=== PATIENT | female | born 1990 | race African-American/Black ===

== ENCOUNTER 2019-05-16 14:10 | Emergency (ER) | payer SELFPAY ==
--- NOTE | 2019-05-16 14:31 | EDM.PDOC ---
ED HPI GENERAL MEDICAL PROBLEM - General Chief Complaint: ENT Problem Stated Complaint: FEVER Time Seen by Provider: 05/16/19 14:30 Source of Information: Reports: Patient, Family History Limitations: Reports: No Limitations - History of Present Illness INITIAL COMMENTS - FREE TEXT/NARRATIVE: HISTORY AND PHYSICAL: History of present illness: Patient is a 29-year-old female non-kinyarwanda speaking presents to the ED with family for complaints of fever. Family states she has had a sore throat, subjective fevers, cough x 1 week. She is complaining of body aches. Denies vomiting, diarrhea, abdominal pain. Denies chest pain, shortness of breath, recent travel, calf pain. Patient is poor historian, uncertain of medical history. Review of systems: As per history of present illness and below otherwise all systems reviewed and negative. Past medical history: As per history of present illness and as reviewed below otherwise noncontributory. Surgical history: As per history of present illness and as reviewed below otherwise noncontributory. Social history: No reported history of drug or alcohol abuse. Family history: As per history of present illness and as reviewed below otherwise noncontributory. Physical exam: General: Patient sitting comfortably in no acute distress and nontoxic appearing HEENT: Tonsils are 3+ and erythematous with exudate. Uvula is midline without devation. Atraumatic, normocephalic, pupils reactive, negative for conjunctival pallor or scleral icterus, mucous membranes moist, throat clear, neck supple, nontender, trachea midline. No meningeal signs. Lungs: Clear to auscultation, breath sounds equal bilaterally, chest nontender. Heart: S1S2, regular, negative for clicks, rubs, or overt murmur. Abdomen: Soft, nondistended, nontender. Negative for masses or hepatosplenomegaly. Negative for costovertebral tenderness. No rigidity, rebound , guarding. Pelvis: Stable nontender. Genitourinary: Deferred. Rectal: Deferred. Extremities: Atraumatic, negative for cords or calf pain. Neurovascular unremarkable. Neuro: Awake, alert, oriented. Cranial nerves II through XII unremarkable. Cerebellum unremarkable. Motor and sensory unremarkable throughout. Exam nonfocal. Notes: Diagnostics: Rapid strep, influenza, CBC, CMP, CXR, EKG Therapeutics: 125mg Soludrol 1L NS IV 1g Rocephin IV Prescriptions: Penicillin Medrol dosepak Impression: Strep tonsillitis Definitive disposition and diagnosis as appropriate pending reevaluation and review of above. Generalized Pain Score (Numeric/FACES): 10 - Related Data Allergies Allergy/AdvReac Type Severity Reaction Status Date / Time No Known Allergies Allergy Verified 05/16/19 14:21 Home Meds: Home Meds Penicillin V Potassium 500 mg PO TID 10 Days #30 tab 05/16/19 [Rx] methylPREDNISolone [Medrol] 4 mg PO ASDIRECTED #1 tab.ds.pk 05/16/19 [Rx] Past Medical History - Past Health History Medical/Surgical History: Denies Medical/Surgical History - Infectious Disease History Infectious Disease History: Reports: None Social & Family History - Family History Family Medical History: Noncontributory - Tobacco Use Smoking Status *Q: Never Smoker - Caffeine Use Caffeine Use: Reports: Coffee - Recreational Drug Use Recreational Drug Use: No ED ROS ENT - Review of Systems Review Of Systems: Comprehensive ROS is negative, except as noted in HPI. ED EXAM, ENT - Physical Exam Exam: See Below (see dictation) Course - Vital Signs Last Recorded V/S: Last Vital Signs Temp 98.8 F 05/16/19 16:01 Pulse 98 05/16/19 17:15 Resp 20 05/16/19 17:15 BP 176/89 H 05/16/19 16:01 Pulse Ox 98 05/16/19 17:15 - Orders/Labs/Meds Orders: Active Orders 24 hr Category Date Time Status EKG Documentation Completion [RC] STAT Care 05/16/19 14:40 Active RT Aerosol Therapy [RC] ASDIRECTED Care 05/16/19 14:40 Active Sodium Chloride 0.9% [Saline Flush] Med 05/16/19 16:01 Active 10 ml FLUSH ASDIRECTED PRN Sodium Chloride 0.9% [Saline Flush] Med 05/16/19 16:01 Active 2.5 ml FLUSH ASDIRECTED PRN Saline Lock Insert [OM.PC] Stat Oth 05/16/19 16:01 Ordered Medication Orders Sodium Chloride (Saline Flush) 10 ml FLUSH ASDIRECTED PRN PRN Reason: Keep Vein Open Sodium Chloride (Saline Flush) 2.5 ml FLUSH ASDIRECTED PRN PRN Reason: Keep Vein Open Labs: Laboratory Tests 05/16/19 05/16/19 05/16/19 Range/Units 14:49 16:20 16:20 WBC 11.38 H (4.0-11.0) K/uL RBC 4.91 (4.30-5.90) M/uL Hgb 12.6 (12.0-16.0) g/dL Hct 38.7 (36.0-46.0) % MCV 78.8 L (80.0-98.0) fL MCH 25.7 L (27.0-32.0) pg MCHC 32.6 (31.0-37.0) g/dL RDW Std Deviation 39.7 (28.0-62.0) fl RDW Coeff of Zoila 14 (11.0-15.0) % Plt Count 136 L (150-400) K/uL MPV 12.30 H (7.40-12.00) fL Neut % (Auto) 85.3 H (48.0-80.0) % Lymph % (Auto) 7.6 L (16.0-40.0) % [place] % (Auto) 6.9 (0.0-15.0) % Eos % (Auto) 0.1 (0.0-7.0) % Baso % (Auto) 0.1 (0.0-1.5) % Neut # (Auto) 9.7 H (1.4-5.7) K/uL Lymph # (Auto) 0.9 (0.6-2.4) K/uL [place] # (Auto) 0.8 (0.0-0.8) K/uL Eos # (Auto) 0.0 (0.0-0.7) K/uL Baso # (Auto) 0.0 (0.0-0.1) K/uL Nucleated RBC % 0.0 /100WBC Nucleated RBCs # 0 K/uL Sodium 137 (136-145) mmol/L Potassium 3.8 (3.5-5.1) mmol/L Chloride 101 (98-107) mmol/L Carbon Dioxide 24.8 (21.0-32.0) mmol/L BUN 12 (7.0-18.0) mg/dL Creatinine 0.9 (0.6-1.0) mg/dL Est Cr Clr Drug Dosing 91.36 mL/min Estimated GFR (MDRD) > 60.0 ml/min Glucose 128 H (74-106) mg/dL Calcium 8.7 (8.5-10.1) mg/dL Total Bilirubin 0.3 (0.2-1.0) mg/dL AST 27 (15-37) IU/L ALT 37 (14-63) IU/L Alkaline Phosphatase 98 (46-116) U/L Total Protein 8.7 H (6.4-8.2) g/dL Albumin 3.9 (3.4-5.0) g/dL Globulin 4.8 H (2.6-4.0) g/dL Albumin/Globulin Ratio 0.8 L (0.9-1.6) Urine HCG, Qual NEGATIVE (NEGATIVE) Meds: Medications Generic Name Dose Route Start Last Admin Trade Name Freq PRN Reason Stop Dose Admin Sodium Chloride 10 ml 05/16/19 16:01 Saline Flush FLUSH ASDIRECTED PRN Keep Vein Open Sodium Chloride 2.5 ml 05/16/19 16:01 Saline Flush FLUSH ASDIRECTED PRN Keep Vein Open Discontinued Medications Generic Name Dose Route Start Last Admin Trade Name Freq PRN Reason Stop Dose Admin Acetaminophen 1,000 mg 05/16/19 15:36 05/16/19 15:45 Tylenol Extra Strength PO 05/16/19 15:37 1,000 mg ONETIME ONE Administration Albuterol/Ipratropium 3 ml 05/16/19 14:40 05/16/19 14:51 Duoneb 3.0-0.5 Mg/3 Ml NEB 05/16/19 14:41 3 ml ONETIME ONE Administration Ceftriaxone Sodium/Dextrose 1 50 mls @ 100 mls/hr 05/16/19 16:01 05/16/19 16: 31 gm/ Premix IV 05/16/19 16:30 100 mls/hr ONETIME ONE Administration Sodium Chloride 1,000 mls @ 999 mls/hr 05/16/19 16:01 05/16/19 16:31 Normal Saline IV 05/16/19 17:01 999 mls/hr STAT ONE Administration Methylprednisolone Sodium Succinate 125 mg 05/16/19 14:40 05/16/19 15:21 Solu-Medrol IM 05/16/19 14:41 125 mg ONETIME ONE Administration Departure - Departure Time of Disposition: 17:23 Disposition: Home, Self-Care 01 Condition: Good Clinical Impression: Strep pharyngitis - Discharge Information Prescriptions: methylPREDNISolone [Medrol] 4 mg PO ASDIRECTED #1 tab.ds.pk Penicillin V Potassium 500 mg PO TID 10 Days #30 tab Referrals: PCP,Unknown [Primary Care Provider] - Forms: ED Department Discharge Additional Instructions: The following information is given to patients seen in the emergency department who are being discharged to home. This information is to outline your options for follow-up care. We provide all patients seen in our emergency department with a follow-up referral. The need for follow-up, as well as the timing and circumstances, are variable depending upon the specifics of your emergency department visit. If you don't have a primary care physician on staff, we will provide you with a referral. We always advise you to contact your personal physician following an emergency department visit to inform them of the circumstance of the visit and for follow-up with them and/or the need for any referrals to a consulting specialist. The emergency department will also refer you to a specialist when appropriate. This referral assures that you have the opportunity for follow-up care with a specialist. All of these measure are taken in an effort to provide you with optimal care, which includes your follow-up. Under all circumstances we always encourage you to contact your private physician who remains a resource for coordinating your care. When calling for follow-up care, please make the office aware that this follow-up is from your recent emergency room visit. If for any reason you are refused follow-up, please contact the [facility] Emergency Department at and asked to speak to the emergency department charge nurse. [facility] [address] [place] [id number] [id number] Take medications as instructed Follow up with primary care provider Return to ED as needed as discussed Sepsis Event Note - Evaluation Sepsis Screening Result: No Definite Risk - Focused Exam Vital Signs: Vital Signs Temp Temp Pulse Resp BP Pulse Ox 05/16/19 17:15 98 20 98 05/16/19 16:01 98.8 F 115 H 24 H 176/89 H 99 05/16/19 15:45 99 F 05/16/19 15:40 99 F 116 H 24 H 176/83 H 100 05/16/19 14:22 98.8 F 116 H 24 H 181/99 H 98 Date Exam was Performed: 05/16/19 Time Exam was Performed: 17:23 - My Orders Last 24 Hours: My Active Orders 05/16/19 14:40 EKG Documentation Completion [RC] STAT RT Aerosol Therapy [RC] ASDIRECTED 05/16/19 16:01 Sodium Chloride 0.9% [Saline Flush] 10 ml FLUSH ASDIRECTED PRN Sodium Chloride 0.9% [Saline Flush] 2.5 ml FLUSH ASDIRECTED PRN Saline Lock Insert [OM.PC] Stat - Assessment/Plan Last 24 Hours: My Active Orders 05/16/19 14:40 EKG Documentation Completion [RC] STAT RT Aerosol Therapy [RC] ASDIRECTED 05/16/19 16:01 Sodium Chloride 0.9% [Saline Flush] 10 ml FLUSH ASDIRECTED PRN Sodium Chloride 0.9% [Saline Flush] 2.5 ml FLUSH ASDIRECTED PRN Saline Lock Insert [OM.PC] Stat
[2019-05-16] MEDS ORDERED: Albuterol/Ipratropium 3.0-0.5 MG/3 ML Neb Soln NEB ONE (14:40)
[2019-05-16] MEDS ORDERED: methylPREDNISolone Sodium Succinate 125 MG/2 ML SDV IM ONE (14:40)
[2019-05-16] MEDS ORDERED: Acetaminophen 500 MG Tab PO ONE (15:36)
--- NOTE | 2019-05-16 15:49 | CR ---
HISTORY: Chest congestion. FINDINGS: Three views of the chest are provided. Diminished lung volumes are noted. The lungs are clear and there is no evidence for pleural effusion or pneumothorax. Cardiac silhouette size appears enlarged but this may be accentuated by the low lung volumes. It is possible there could be true cardiomegaly or pericardial effusion. Dictated by George Ramirez MD @ May 16 2019 3:46PM Signed by Dr. George Ramirez @ May 16 2019 3:47PM
[2019-05-16] MEDS ORDERED: Sodium Chloride 0.9% 1,000 ML IV ONE (16:01)
[2019-05-16] MEDS ORDERED: cefTRIAXone 1 GM in Premix Bag 1 BAG IV ONE (16:01)
[2019-05-16] MEDS ORDERED: Sodium Chloride 0.9% 2.5 ML Syringe FLUSH PRN (16:01)
[2019-05-16] MEDS ORDERED: Sodium Chloride 0.9% 10 ML Syringe FLUSH PRN (16:01)
[2019-05-16 17:11] LABS: BLOOD UREA NITROGEN,BUN 12 mg/dL (7.0-18.0); CARBON DIOXIDE,CO2 24.8 mmol/L (21.0-32.0); CHLORIDE,CL 101 mmol/L (98-107); GLUCOSE RANDOM 128 mg/dL (74-106); POTASSIUM,K 3.8 mmol/L (3.5-5.1); SODIUM,NA 137 mmol/L (136-145)
== END 2019-05-16 17:40 | disposition home or self-care (01) ==
LOC: MW.ED 14:10
DX: J03.00 Acute streptococcal tonsillitis, unspecified (principal)
CPT/HCPCS: 36415; 71046; 80053; 81025; 85025; 87804; 87880; 93005; 94640; 96361; 96365; 96372; 99284; A9270; J0696; J2930; J7030; J7620-GY

== ENCOUNTER 2020-03-21 16:46 | Emergency (ER) | payer SELFPAY ==
[2020-03-21] MEDS ORDERED: Sodium Chloride 0.9% 1,000 ML IV ONE (17:07)
[2020-03-21] MEDS ORDERED: Ondansetron 4 MG/2 ML SDV IVPUSH ONE (17:07)
[2020-03-21] MEDS ORDERED: Morphine 4 MG/ML Syringe IVPUSH ONE (17:07)
--- NOTE | 2020-03-21 17:10 | EDM.PDOC ---
ED HPI GENERAL MEDICAL PROBLEM - General Chief Complaint: Abdominal Pain Stated Complaint: ABDOMINAL PAIN Time Seen by Provider: 03/21/20 16:47 Source of Information: Reports: Patient History Limitations: Reports: No Limitations - History of Present Illness INITIAL COMMENTS - FREE TEXT/NARRATIVE: HISTORY AND PHYSICAL: History of present illness: Patient is a 30-year-old female who presents to the emergency room with complaints of generalized abdominal pain x2 weeks. She states the pain is "all over" but more bothersome on the right upper and right lower quadrant. She also notices some low back pain intermittently along with dysuria. Patient denies any fever, chills, headache, change in vision, syncope or near syncope. Denies any chest pain, shortness of breath or cough. Denies any nausea, vomiting, diarrhea, constipation or dysuria. Denies any vaginal bleeding, discharge or concerns of STDs. Menstrual period 02/25/2020. Has not noted any blood in urine or stool. Patient has been eating and drinking appropriately. Has been using ibuprofen routinely without relief. 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 Review of systems: As per history of present illness and below otherwise all systems reviewed and negative. Past medical history: As per history of present illness and as reviewed below otherwise noncontributory. Surgical history: As per history of present illness and as reviewed below otherwise noncontributory. Social history: See social history for further information Family history: As per history of present illness and as reviewed below otherwise noncontributory. Physical exam: General: Well developed and well nourished 30 year old female. Alert and orientated x 3. Nontoxic in appearance and in no acute distress. Vital signs are stable and have been reviewed by me. Nursing notes were reviewed. HEENT: Atraumatic, normocephalic, pupils equal and reactive bilaterally, negative for conjunctival pallor or scleral icterus, mucous membranes moist, TMs normal bilaterally, throat clear, neck supple, nontender, trachea midline. No drooling or trismus noted. No meningeal signs. No hot potato voice noted. Lungs: Clear to auscultation, breath sounds equal bilaterally, chest nontender. Normal work of breathing, no accessory muscles used. Heart: S1S2, regular rate and rhythm without overt murmur Abdomen: Soft, nondistended, generalized tenderness in all 4 quadrants, worse in the right lower quadrant. Negative for masses or hepatosplenomegaly. Negative for costovertebral tenderness. Pelvis: Stable nontender. Skin: Intact, warm, dry. No lesions or rashes noted. Hematologic: No petechiae or purpra. Mucosa appropriate color and normal nail bed color and refill. Extremities: Atraumatic, moves all extremities per self without difficulty or deficits, negative for cords or calf pain. Neurovascular unremarkable. Neuro: Awake, alert, oriented. Cranial nerves II through XII unremarkable. Cerebellum unremarkable. Motor and sensory unremarkable throughout. Exam nonfocal. Psychiatric: Mood and affect are appropriate. Normal thought process. Answering questions appropriately. Notes: Lab work is unremarkable. Covid screening is positive. No acute abnormality is identified on the CT of the abdomen and pelvis. I have spoken with the patient/caregiver and discussed today's findings, in addition to providing specific details for plan of care. Reassessment at the time of disposition demonstrates that the patient is in no acute distress. The patient has remained stable throughout the entire ED visit and is without objective evidence for acute process requiring urgent intervention or hospitalization. The patient is stable for discharge, counseling was provided and we discussed in great detail signs and symptoms that would prompt them to return to the Emergency Department. Medication, follow up and supportive care measures were reviewed and discussed. Voices understanding and is agreeable to plan of care. Denies any further questions or concerns at this time. Diagnostics: CBC, CMP, lipase, UA, urine Therapeutics: IV fluids, Zofran, Morphine Prescription: None Impression: COVID-19 Plan: 1. Your COVID-19 screening is positive. That means you do have the coronavirus and are considered contagious. Your vital signs and oxygen saturation are well enough that you were able to monitor your symptoms at home. Continue to monitor for trouble breathing, new confusion or inability to arouse, bluish lips or face or any of the other symptoms we discussed -if this occurs please return to the emergency room. 2. Please self quarantine over the next 2 weeks. Inform any persons that you have been in contact with since you started becoming symptomatic that you have tested positive; they should be made aware and take the appropriate steps as needed. 3. You can take NyQuil during the evening to help get a restful night sleep. 4. You may alternate Tylenol and ibuprofen as needed for pain and fever management. 5. The state health department will be calling you and following up with you. The [place] COVID 19 Hotline phone number , They are open Saturday - Saturday 7am - 7pm. Follow up with your primary care provider for re-evaluation and re-testing after the 2 week quarantine and discuss when you should be seen. Definitive disposition and diagnosis as appropriate pending reevaluation and review of above. Abdomen Pain Score (Numeric/FACES): 10 - Related Data Allergies Allergy/AdvReac Type Severity Reaction Status Date / Time No Known Allergies Allergy Verified 03/21/20 17:07 Home Meds: Home Meds Ibuprofen 200 mg PO ASDIRECTED PRN 03/21/20 [History] Past Medical History - Past Health History Medical/Surgical History: Denies Medical/Surgical History - Infectious Disease History Infectious Disease History: Reports: None Social & Family History - Family History Family Medical History: Noncontributory - Caffeine Use Caffeine Use: Reports: Coffee ED ROS GENERAL - Review of Systems Review Of Systems: Comprehensive ROS is negative, except as noted in HPI. ED EXAM, GI/ABD - Physical Exam Exam: See Below (See dictation) Course - Vital Signs Last Recorded V/S: Last Vital Signs Temp Pulse 88 03/21/20 19:02 Resp 20 03/21/20 19:02 BP 159/102 H 03/21/20 19:02 Pulse Ox 96 03/21/20 19:02 - Orders/Labs/Meds Orders: Active Orders 24 hr Category Date Time Status CORONAVIRUS COVID-19 PCR PHL Stat Lab 03/21/20 17:57 Received Labs: Laboratory Tests 03/21/20 03/21/20 03/21/20 Range/Units 17:10 17:10 17:27 WBC 6.55 (4.0-11.0) K/uL RBC 4.59 (4.30-5.90) M/uL Hgb 12.2 (12.0-16.0) g/dL Hct 37.5 (36.0-46.0) % MCV 81.7 (80.0-98.0) fL MCH 26.6 L (27.0-32.0) pg MCHC 32.5 (31.0-37.0) g/dL RDW Std Deviation 40.2 (28.0-62.0) fl RDW Coeff of Zoila 13 (11.0-15.0) % Plt Count 176 (150-400) K/uL MPV 13.50 H (7.40-12.00) fL Neut % (Auto) 53.3 (48.0-80.0) % Lymph % (Auto) 36.8 (16.0-40.0) % [place] % (Auto) 7.3 (0.0-15.0) % Eos % (Auto) 2.3 (0.0-7.0) % Baso % (Auto) 0.3 (0.0-1.5) % Neut # (Auto) 3.5 (1.4-5.7) K/uL Lymph # (Auto) 2.4 (0.6-2.4) K/uL [place] # (Auto) 0.5 (0.0-0.8) K/uL Eos # (Auto) 0.2 (0.0-0.7) K/uL Baso # (Auto) 0.0 (0.0-0.1) K/uL Nucleated RBC % 0.0 /100WBC Nucleated RBCs # 0 K/uL Sodium (136-145) mmol/L Potassium (3.5-5.1) mmol/L Chloride (98-107) mmol/L Carbon Dioxide (21.0-32.0) mmol/L BUN (7.0-18.0) mg/dL Creatinine (0.6-1.0) mg/dL Est Cr Clr Drug Dosing mL/min Estimated GFR (MDRD) ml/min Glucose (74-106) mg/dL Calcium (8.5-10.1) mg/dL Total Bilirubin (0.2-1.0) mg/dL AST (15-37) IU/L ALT (14-63) IU/L Alkaline Phosphatase (46-116) U/L Total Protein (6.4-8.2) g/dL Albumin (3.4-5.0) g/dL Globulin (2.6-4.0) g/dL Albumin/Globulin Ratio (0.9-1.6) Lipase (73-393) U/L Urine Color YELLOW Urine Appearance CLEAR Urine pH 6.0 (5.0-8.0) Ur Specific [place] 1.025 (1.001-1.035) Urine Protein TRACE H (NEGATIVE) mg/dL Urine Glucose (UA) NEGATIVE (NEGATIVE) mg/dL Urine Ketones NEGATIVE (NEGATIVE) mg/dL Urine Occult Blood NEGATIVE (NEGATIVE) Urine Nitrite NEGATIVE (NEGATIVE) Urine Bilirubin NEGATIVE (NEGATIVE) Urine Urobilinogen 0.2 (<2.0) EU/dL Ur Leukocyte Esterase NEGATIVE (NEGATIVE) Urine RBC 0-1 (0-2/HPF) Urine WBC 0-1 (0-5/HPF) Ur Epithelial Cells RARE (NONE-FEW) Urine Bacteria RARE (NEGATIVE) Urine HCG, Qual NEGATIVE (NEGATIVE) SARS CoV-2 RNA Rapid KODI (NEGATIVE) 03/21/20 03/21/20 Range/Units 17:27 17:57 WBC (4.0-11.0) K/uL RBC (4.30-5.90) M/uL Hgb (12.0-16.0) g/dL Hct (36.0-46.0) % MCV (80.0-98.0) fL MCH (27.0-32.0) pg MCHC (31.0-37.0) g/dL RDW Std Deviation (28.0-62.0) fl RDW Coeff of Zoila (11.0-15.0) % Plt Count (150-400) K/uL MPV (7.40-12.00) fL Neut % (Auto) (48.0-80.0) % Lymph % (Auto) (16.0-40.0) % [place] % (Auto) (0.0-15.0) % Eos % (Auto) (0.0-7.0) % Baso % (Auto) (0.0-1.5) % Neut # (Auto) (1.4-5.7) K/uL Lymph # (Auto) (0.6-2.4) K/uL [place] # (Auto) (0.0-0.8) K/uL Eos # (Auto) (0.0-0.7) K/uL Baso # (Auto) (0.0-0.1) K/uL Nucleated RBC % /100WBC Nucleated RBCs # K/uL Sodium 137 (136-145) mmol/L Potassium 3.3 L (3.5-5.1) mmol/L Chloride 102 (98-107) mmol/L Carbon Dioxide 24.9 (21.0-32.0) mmol/L BUN 15 (7.0-18.0) mg/dL Creatinine 0.8 (0.6-1.0) mg/dL Est Cr Clr Drug Dosing 94.51 mL/min Estimated GFR (MDRD) > 60.0 ml/min Glucose 132 H (74-106) mg/dL Calcium 8.3 L (8.5-10.1) mg/dL Total Bilirubin 0.2 (0.2-1.0) mg/dL AST 25 (15-37) IU/L ALT 32 (14-63) IU/L Alkaline Phosphatase 84 (46-116) U/L Total Protein 8.3 H (6.4-8.2) g/dL Albumin 3.6 (3.4-5.0) g/dL Globulin 4.7 H (2.6-4.0) g/dL Albumin/Globulin Ratio 0.8 L (0.9-1.6) Lipase 169 (73-393) U/L Urine Color Urine Appearance Urine pH (5.0-8.0) Ur Specific [place] (1.001-1.035) Urine Protein (NEGATIVE) mg/dL Urine Glucose (UA) (NEGATIVE) mg/dL Urine Ketones (NEGATIVE) mg/dL Urine Occult Blood (NEGATIVE) Urine Nitrite (NEGATIVE) Urine Bilirubin (NEGATIVE) Urine Urobilinogen (<2.0) EU/dL Ur Leukocyte Esterase (NEGATIVE) Urine RBC (0-2/HPF) Urine WBC (0-5/HPF) Ur Epithelial Cells (NONE-FEW) Urine Bacteria (NEGATIVE) Urine HCG, Qual (NEGATIVE) SARS CoV-2 RNA Rapid KODI POSITIVE H (NEGATIVE) Meds: Medications Discontinued Medications Generic Name Dose Route Start Last Admin Trade Name Freq PRN Reason Stop Dose Admin Sodium Chloride 1,000 mls @ 999 mls/hr 03/21/20 17:07 03/21/20 17:32 Normal Saline IV 03/21/20 18:07 999 mls/hr STAT ONE Administration Iopamidol 100 ml 03/21/20 18:42 03/21/20 18:47 Isovue Multipack-370 (76%) IVPUSH 03/21/20 18:43 100 ml ONETIME STA Administration Morphine Sulfate 4 mg 03/21/20 17:07 03/21/20 17:31 Morphine IVPUSH 03/21/20 17:08 4 mg ONETIME ONE Administration Ondansetron HCl 4 mg 03/21/20 17:07 03/21/20 17:31 Zofran IVPUSH 03/21/20 17:08 4 mg ONETIME ONE Administration Departure - Departure Time of Disposition: 19:16 Disposition: Home, Self-Care 01 Clinical Impression: COVID-19 - Discharge Information Instructions: COVID-19 Referrals: PCP,None [Primary Care Provider] - Forms: ED Department Discharge Additional Instructions: The following information is given to patients seen in the emergency department who are being discharged to home. This information is to outline your options for follow-up care. We provide all patients seen in our emergency department with a follow-up referral. The need for follow-up, as well as the timing and circumstances, are variable depending upon the specifics of your emergency department visit. If you don't have a primary care physician on staff, we will provide you with a referral. We always advise you to contact your personal physician following an emergency department visit to inform them of the circumstance of the visit and for follow-up with them and/or the need for any referrals to a consulting specialist. The emergency department will also refer you to a specialist when appropriate. This referral assures that you have the opportunity for follow-up care with a specialist. All of these measure are taken in an effort to provide you with optimal care, which includes your follow-up. Under all circumstances we always encourage you to contact your private physician who remains a resource for coordinating your care. When calling for follow-up care, please make the office aware that this follow-up is from your recent emergency room visit. If for any reason you are refused follow-up, please contact the [facility] Emergency Department at and asked to speak to the emergency department charge nurse. [facility] [address] [place] [id number] [id number] Thank you for choosing the [facility] emergency department in [place] for your medical needs today. It was a pleasure caring for you. Today you were seen in the emergency department for abdominal pain. 1. Your COVID-19 screening is positive. That means you do have the coronavirus and are considered contagious. Your vital signs and oxygen saturation are well enough that you were able to monitor your symptoms at home. Continue to monitor for trouble breathing, new confusion or inability to arouse, bluish lips or fa ce or any of the other symptoms we discussed -if this occurs please return to the emergency room. 2. Please self quarantine over the next 10 days. Inform any persons that you have been in contact with since you started becoming symptomatic that you have tested positive; they should be made aware and take the appropriate steps as needed. 3. You can take NyQuil during the evening to help get a restful night sleep. 4. You may alternate Tylenol and ibuprofen as needed for pain and fever management. 5. The [facility] department will be calling you and following up with you. The [place] COVID 19 Hotline phone number , They are open Saturday - Saturday 7am - 7pm. Follow up with your primary care provider for re-evaluation and re-testing after the 10 days quarantine and discuss when you should be seen. 1. Votre dpistage COVID-19 est positif. Micah signifie que vous avez le coronavirus et que vous eva considr comme contagieux. Robbi signes vitaux et votre saturation en oxygne sont suffisamment bons pour que vous puissiez surveiller robbi symptmes la eunice. Continuez surveiller les difficults respiratoires, la nouvelle confusion ou l'incapacit se rveiller, les lvres ou le visage bleutres ou tout autre symptme dont nous avons discut - si micah se produit, veuillez retourner aux urgences. 2. Veuillez vous mettre en quarantaine au cours malika 10 prochains jours. Informez toutes les personnes avec lesquelles vous avez t en contact depuis que vous avez commenc devenir symptomatique que vous avez t test positif; ils doivent en dulce informs et prendre les mesures appropries au besoin. 3. Vous pouvez prendre NyQuil le soir pour vous aider passer une bonne nuit de sommeil. 4. Vous pouvez alterner Tylenol et ibuprofne au besoin pour la gestion de la douleur et de la fivre. 5. Le dpartement de la torres de l'tat vous appellera et fera un suivi avec vous. Le numro de tlphone de la hotline [place] COVID 19 , ils sont ouverts du lundi au vendredi de 7h 19h. Faites un suivi avec votre fournisseur de soins primaires pour une rvaluation et un nouveau test aprs les 10 jours de quarantaine et discutez du moment o vous devriez dulce vu. Sepsis Event Note (ED) - Focused Exam Vital Signs: Vital Signs Pulse Resp BP Pulse Ox 03/21/20 19:02 88 20 159/102 H 96 03/21/20 17:08 94 18 174/107 H 100 - My Orders Last 24 Hours: My Active Orders 03/21/20 17:57 CORONAVIRUS COVID-19 PCR PHL Stat - Assessment/Plan Last 24 Hours: My Active Orders 03/21/20 17:57 CORONAVIRUS COVID-19 PCR PHL Stat
[2020-03-21 18:03] LABS: BLOOD UREA NITROGEN,BUN 15 mg/dL (7.0-18.0); CARBON DIOXIDE,CO2 24.9 mmol/L (21.0-32.0); CHLORIDE,CL 102 mmol/L (98-107); GLUCOSE RANDOM 132 mg/dL (74-106); LIPASE 169 U/L (73-393); POTASSIUM,K 3.3 mmol/L (3.5-5.1); SODIUM,NA 137 mmol/L (136-145)
[2020-03-21] MEDS ORDERED: Iopamidol 755 MG/ML 500 ML Multipack Bottle IVPUSH STA (18:42)
--- NOTE | 2020-03-21 19:14 | CT ---
INDICATION: Abdominal pain for [address] ABDOMEN AND PELVIS WITH CONTRAST TECHNIQUE: Multidetector CT imaging was performed through the abdomen and pelvis following intravenous contrast administration using 100 mL Isovue 370. Coronal and sagittal reconstructions were generated. COMPARISON: None. FINDINGS: The exam is mildly limited by motion. Lower chest: Lung bases are grossly clear. Heart size is in the upper range of normal. Liver: Within normal limits. Gallbladder and bile ducts: No gallbladder wall thickening or calcified gallstones. No biliary dilation identified. Pancreas: Unremarkable. Spleen: Normal. Adrenals: No nodules or masses. Kidneys, ureters, and urinary bladder: No renal masses or hydronephrosis. No bladder mass or definite wall thickening. Gastrointestinal tract and abdominal wall: Normal caliber bowel without wall thickening. The appendix is not identified. No findings suggestive of appendicitis are noted in the right lower quadrant. There are postoperative changes in the lower anterior abdominal wall. Vascular structures: Normal for age. Peritoneum: Trace free fluid in the low pelvis may be physiologic. No free air identified in the abdomen or pelvis. Lymph nodes: No pathologically enlarged nodes identified. Reproductive organs: Probable right ovarian corpus luteum on image 118 of series 201. Left ovary not clearly visualized. No pelvic masses. Bones: Normal for age. IMPRESSION: 1. No acute abnormality identified. No cause for the patient`s symptoms is demonstrated. 2. Nonacute findings as detailed above. DIANNA POZO MD [employer] Dictated by Ish Pozo MD @ 03/21/2020 7:09:01 PM Dictated by: Ish Pozo MD @ 03/21/2020 19:13:29 (Electronically Signed)
== END 2020-03-21 19:30 | disposition home or self-care (01) ==
LOC: MW.ED 16:46
DX: U07.1 COVID-19 (principal)
CPT/HCPCS: 36415; 74177; 80053; 81001; 81025; 83690; 85025; 87635; 96374; 96375; 99284; J2270; J2405; J7030; Q9967; U0002

== ENCOUNTER 2020-07-07 07:31 | Day surgery (SDC) | payer OTHER ==
[2020-06-13 12:27] LABS: BLOOD UREA NITROGEN,BUN 15 mg/dL (7.0-18.0); CARBON DIOXIDE,CO2 26.9 mmol/L (21.0-32.0); CHLORIDE,CL 103 mmol/L (98-107); GLUCOSE RANDOM 148 mg/dL (74-106); POTASSIUM,K 3.7 mmol/L (3.5-5.1); SODIUM,NA 140 mmol/L (136-145)
[~2020-07-07 07:31] MED LIST: Dexamethasone 4 MG/ML 5 ML MDV ONE; Glycopyrrolate 0.2 MG/ML SDV ONE; Ketorolac 30 MG/ML SDV ONE; Lactated Ringers 1,000 ML IV SCH; Lidocaine 2% 5 ML SDV ONE; Midazolam 1 MG/ML 2 ML SDV ONE; Ondansetron 4 MG/2 ML SDV ONE; Propofol 200 MG/20 ML SDV ONE; Rocuronium Bromide 50 MG/5 ML Syringe ONE; Sodium Chloride 0.9% 10 ML SDV IV PRN; Sodium Chloride 0.9% 10 ML Syringe FLUSH PRN; Sodium Chloride 0.9% 2.5 ML Syringe FLUSH PRN; fentaNYL 100 MCG/2 ML SDV ONE
--- NOTE | 2020-07-07 08:03 | PCM.PREANE ---
Preanesthetic Assessment - Anesthesia/Transfusion/Family Hx Anesthesia History: Prior Anesthesia Without Reaction Family History of Anesthesia Reaction: No Transfusion History: No Prior Transfusion(s) Intubation History: Unknown - Review of Systems General: No Symptoms Pulmonary: No Symptoms Cardiovascular: No Symptoms Gastrointestinal: No Symptoms Neurological: No Symptoms Other: Reports: None - Physical Assessment Height: 6 ft Weight: 120.202 kg ASA Class: 2 Mental Status: Alert & Oriented x3 Airway Class: Mallampati = 2 Dentition: Reports: Normal Dentition Thyro-Mental Finger Breadths: 3 Mouth Opening Finger Breadths: 3 ROM/Head Extension: Full Lungs: Clear to Auscultation, Normal Respiratory Effort Cardiovascular: Regular Rate, Regular Rhythm - Lab Values: Laboratory Last Values WBC 6.59 K/uL (4.0-11.0) 06/13/20 11:45 RBC 4.64 M/uL (4.30-5.90) 06/13/20 11:45 Hgb 11.9 g/dL (12.0-16.0) L 06/13/20 11:45 Hct 38.3 % (36.0-46.0) 06/13/20 11:45 MCV 82.5 fL (80.0-98.0) 06/13/20 11:45 MCH 25.6 pg (27.0-32.0) L 06/13/20 11:45 MCHC 31.1 g/dL (31.0-37.0) 06/13/20 11:45 RDW Std Deviation 41.1 fl (28.0-62.0) 06/13/20 11:45 RDW Coeff of Zoila 14 % (11.0-15.0) 06/13/20 11:45 Plt Count 190 K/uL (150-400) 06/13/20 11:45 MPV 12.50 fL (7.40-12.00) H 06/13/20 11:45 Nucleated RBC % 0.0 /100WBC 06/13/20 11:45 Nucleated RBCs # 0 K/uL 06/13/20 11:45 Sodium 140 mmol/L (136-145) 06/13/20 11:45 Potassium 3.7 mmol/L (3.5-5.1) 06/13/20 11:45 Chloride 103 mmol/L (98-107) 06/13/20 11:45 Carbon Dioxide 26.9 mmol/L (21.0-32.0) 06/13/20 11:45 BUN 15 mg/dL (7.0-18.0) 06/13/20 11:45 Creatinine 0.7 mg/dL (0.6-1.0) 06/13/20 11:45 Est Cr Clr Drug Dosing TNP 06/13/20 11:45 Estimated GFR (MDRD) > 60.0 ml/min 06/13/20 11:45 Glucose 148 mg/dL (74-106) H 06/13/20 11:45 Calcium 9.3 mg/dL (8.5-10.1) 06/13/20 11:45 HCG, Qual NEGATIVE (NEG) 06/13/20 11:45 Blood Type A NEGATIVE 06/13/20 11:49 Antibody Screen POSITIVE 06/13/20 11:49 Antibody Identification Anti-D 06/13/20 11:49 - Allergies Allergies/Adverse Reactions: Allergies Allergy/AdvReac Type Severity Reaction Status Date / Time No Known Allergies Allergy Verified 07/04/20 10:36 - Blood Blood Available: No - Anesthesia Plan Pre-Op Medication Ordered: None - Acknowledgements Anesthesia Type Planned: General Anesthesia Pt an Appropriate Candidate for the Planned Anesthesia: Yes Alternatives and Risks of Anesthesia Discussed w Pt/Guardian: Yes Pt/Guardian Understands and Agrees with Anesthesia Plan: Yes PreAnesthesia Questionnaire - Past Health History Medical/Surgical History: Denies Medical/Surgical History Cardiovascular History: Reports: Hypertension Other Cardiovascular History: just started on medication the end of May Respiratory History: Reports: Other (See Below) Other Respiratory History: says 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, Endocrine/Metabolic History: Reports: Diabetes, Type II, Obesity/BMI 30+ (BMI 35.9) Other Endocrine/Metabolic History: recently had elevated Hgb A1C- started on Metformin - Infectious Disease History Infectious Disease History: Reports: None - Past Surgical History GI Surgical History: Reports: Appendectomy Female Surgical History: Reports: Section - SUBSTANCE USE Tobacco Use Status *Q: Never Tobacco User Recreational Drug Use History: No - HOME MEDS Home Medications: Home Meds amLODIPine [Norvasc] 10 mg PO QAM 07/04/20 [History] hydroCHLOROthiazide [Hydrochlorothiazide] 12.5 mg PO QAM 07/04/20 [History] metFORMIN [Glucophage XR] 500 mg PO BID 07/04/20 [History] - CURRENT (IN HOUSE) MEDS Current Meds: Current Medications Lactated Ringer's (Ringers, Lactated) 1,000 mls @ 125 mls/hr IV ASDIRECTED DUC Sodium Chloride (Saline Flush) 10 ml FLUSH ASDIRECTED PRN PRN Reason: Keep Vein Open Sodium Chloride (Saline Flush) 2.5 ml FLUSH ASDIRECTED PRN PRN Reason: Keep Vein Open Sodium Chloride (Normal Saline) 10 ml IV ASDIRECTED PRN PRN Reason: IV Use Sodium Chloride (Saline Flush) 10 ml FLUSH ASDIRECTED PRN PRN Reason: Keep Vein Open Sodium Chloride (Saline Flush) 2.5 ml FLUSH ASDIRECTED PRN PRN Reason: Keep Vein Open Sodium Chloride (Normal Saline) 10 ml IV ASDIRECTED PRN PRN Reason: IV Use Discontinued Medications Dexamethasone (Dexamethasone) Confirm Administered Dose 20 mg .ROUTE .STK-MED ONE Stop: 07/07/20 07:07 Fentanyl (Sublimaze) Confirm Administered Dose 100 mcg .ROUTE .STK-MED ONE Stop: 07/07/20 07:03 Glycopyrrolate (Robinul) Confirm Administered Dose 0.8 mg .ROUTE .STLivemap-MED ONE Stop: 07/07/20 07:07 Ketorolac Tromethamine (Toradol) Confirm Administered Dose 30 mg .ROUTE .STK-MED ONE Stop: 07/07/20 07:07 Lidocaine (Xylocaine-Mpf 2%) Confirm Administered Dose 5 ml .ROUTE .STK-MED ONE Stop: 07/07/20 07:07 Midazolam HCl (Versed 1 Mg/Ml) Confirm Administered Dose 2 mg .ROUTE .STK-MED ONE Stop: 07/07/20 07:05 Ondansetron HCl (Zofran) Confirm Administered Dose 4 mg .ROUTE .STK-MED ONE Stop: 07/07/20 07:07 Propofol (Diprivan 20 Ml) Confirm Administered Dose 200 mg .ROUTE .STK-MED ONE Stop: 07/07/20 07:03 Rocuronium [place] (Rocuronium [place]) Confirm Administered Dose 50 mg .ROUTE .STK-MED ONE Stop: 07/07/20 07:07
[2020-07-07] MEDS ORDERED: Acetaminophen 1,000 MG in Premix Bag 1 BAG IV ONE (08:06)
[2020-07-07] MEDS ORDERED: ceFAZolin 1 GM Vial ONE (09:09)
[2020-07-07] MEDS ORDERED: Sodium Chloride 0.9% 20 ML ONE (09:09)
[2020-07-07] MEDS ORDERED: fentaNYL 100 MCG/2 ML SDV ONE ×3 (09:22→10:43)
[2020-07-07] MEDS ORDERED: Fluorescein 5 ML Vial ONE (10:48)
[2020-07-07] MEDS ORDERED: Octyl 2-Cyanoacrylate 1 Tube ONE (10:48)
[2020-07-07] MEDS ORDERED: Furosemide 40 MG/4 ML VIAL ONE (10:49)
[2020-07-07] MEDS ORDERED: Rocuronium Bromide 50 MG/5 ML Syringe ONE (11:08)
[2020-07-07] MEDS ORDERED: Phenylephrine 1% 10 MG/ML SDV ONE (11:13)
--- NOTE | 2020-07-07 11:34 | PCM.OPNOTE ---
- General Post-Op/Procedure Note Date of Surgery/Procedure: 07/07/20 Operative Procedure(s): Muliple puncture Dignostic Laparascopy, Extensive lusis of adhesion, LSO and Cystoscopy. Pre Op Diagnosis: Pelvic pain, L. adnexal mass Post-Op Diagnosis: Same Anesthesia Technique: General ET Tube Primary Surgeon: Rosalio Trevino EBL in mLs: 100 Complications: None Condition: Good
--- NOTE | 2020-07-07 11:35 | PCM.DCSUM1 ---
Discharge Summary - Hospital Course Diagnosis: Stroke: No - Discharge Data Discharge Date: 07/07/20 Discharge Disposition: Home, Self-Care 01 Condition: Good - Referral to Home Health Primary Care Physician: Rosalio Trevino MD - Patient Summary/Data Operative Procedure(s) Performed: Muliple puncture Dignostic Laparascopy, Extensive lusis of adhesion, LSO and Cystoscopy. - Patient Instructions Diet: Usual Diet as Tolerated Driving: Do Not Drive Showering/Bathing: May Shower Notify Provider of: Fever, Increased Pain, Swelling and Redness - Discharge Plan Home Medications: Home Meds amLODIPine [Norvasc] 10 mg PO QAM 07/04/20 [History] hydroCHLOROthiazide [Hydrochlorothiazide] 12.5 mg PO QAM 07/04/20 [History] metFORMIN [Glucophage XR] 500 mg PO BID 07/04/20 [History] - Discharge Summary/Plan Comment DC Time >30 min.: Yes - General Info Date of Service: 07/07/20 Functional Status: Reports: Pain Controlled - Review of Systems General: Reports: No Symptoms HEENT: Reports: No Symptoms Pulmonary: Reports: No Symptoms Cardiovascular: Reports: No Symptoms Gastrointestinal: Reports: No Symptoms Genitourinary: Reports: No Symptoms Musculoskeletal: Reports: No Symptoms Skin: Reports: No Symptoms Neurological: Reports: No Symptoms Psychiatric: Reports: No Symptoms - Patient Data Vitals - Most Recent: Last Vital Signs Temp 36.8 C 07/07/20 07:35 Pulse 105 H 07/07/20 07:35 Resp 18 07/07/20 07:35 BP 141/83 H 07/07/20 08:00 Pulse Ox 97 07/07/20 07:35 Weight - Most Recent: 120.202 kg Med Orders - Current: Current Medications Fentanyl (Sublimaze) 50 mcg IVPUSH Q5M PRN PRN Reason: Pain Lactated Ringer's (Ringers, Lactated) 1,000 mls @ 125 mls/hr IV ASDIRECTED DUC Last Admin: 07/07/20 08:09 Dose: 125 mls/hr Documented by: Sodium Chloride (Saline Flush) 10 ml FLUSH ASDIRECTED PRN PRN Reason: Keep Vein Open Sodium Chloride (Saline Flush) 2.5 ml FLUSH ASDIRECTED PRN PRN Reason: Keep Vein Open Sodium Chloride (Normal Saline) 10 ml IV ASDIRECTED PRN PRN Reason: IV Use Sodium Chloride (Saline Flush) 10 ml FLUSH ASDIRECTED PRN PRN Reason: Keep Vein Open Sodium Chloride (Saline Flush) 2.5 ml FLUSH ASDIRECTED PRN PRN Reason: Keep Vein Open Sodium Chloride (Normal Saline) 10 ml IV ASDIRECTED PRN PRN Reason: IV Use Discontinued Medications Cefazolin Sodium (Ancef) Confirm Administered Dose 2 gm .ROUTE .STK-MED ONE Stop: 07/07/20 09:10 Dexamethasone (Dexamethasone) Confirm Administered Dose 20 mg .ROUTE .STK-MED ONE Stop: 07/07/20 07:07 Fentanyl (Sublimaze) Confirm Administered Dose 100 mcg .ROUTE .STK-MED ONE Stop: 07/07/20 07:03 Fentanyl (Sublimaze) Confirm Administered Dose 100 mcg .ROUTE .STK-MED ONE Stop: 07/07/20 09:23 Fentanyl (Sublimaze) Confirm Administered Dose 100 mcg .ROUTE .STK-MED ONE Stop: 07/07/20 09:47 Fentanyl (Sublimaze) Confirm Administered Dose 100 mcg .ROUTE .STK-MED ONE Stop: 07/07/20 10:44 Fluorescein Sodium (Ak-Fluor) Confirm Administered Dose 5 ml .ROUTE .STK-MED ONE Stop: 07/07/20 10:49 Furosemide (Lasix) Confirm Administered Dose 40 mg .ROUTE .STK-MED ONE Stop: 07/07/20 10:50 Glycopyrrolate (Robinul) Confirm Administered Dose 0.8 mg .ROUTE .STK-MED ONE Stop: 07/07/20 07:07 Acetaminophen 1,000 mg/ Premix 100 mls @ 400 mls/hr IV ONETIME ONE Stop: 07/07/20 08:20 Sodium Chloride (Normal Saline) Confirm Administered Dose 20 mls @ as directed .ROUTE .STK-MED ONE Stop: 07/07/20 09:10 Ketorolac Tromethamine (Toradol) Confirm Administered Dose 30 mg .ROUTE .STK-MED ONE Stop: 07/07/20 07:07 Lidocaine (Xylocaine-Mpf 2%) Confirm Administered Dose 5 ml .ROUTE .STK-MED ONE Stop: 07/07/20 07:07 Midazolam HCl (Versed 1 Mg/Ml) Confirm Administered Dose 2 mg .ROUTE .STK-MED ONE Stop: 07/07/20 07:05 Octyl Cyanoacrylate (Dermabond Advance) Confirm Administered Dose 1 applic .ROUTE .STK-MED ONE Stop: 07/07/20 10:49 Ondansetron HCl (Zofran) Confirm Administered Dose 4 mg .ROUTE .STK-MED ONE Stop: 07/07/20 07:07 Phenylephrine HCl (Beck-Synephrine) Confirm Administered Dose 10 mg .ROUTE .STK- MED ONE Stop: 07/07/20 11:14 Propofol (Diprivan 20 Ml) Confirm Administered Dose 200 mg .ROUTE .STK-MED ONE Stop: 07/07/20 07:03 Rocuronium [place] (Rocuronium [place]) Confirm Administered Dose 50 mg .ROUTE .STK-MED ONE Stop: 07/07/20 07:07 Rocuronium [place] (Rocuronium [place]) Confirm Administered Dose 50 mg .ROUTE .STK-MED ONE Stop: 07/07/20 11:09 - Exam General: Reports: Alert, Oriented HEENT: Reports: Pupils Equal, Pupils Reactive, EOMI, Mucous Membr. Moist/[place] Neck: Reports: Supple Lungs: Reports: Clear to Auscultation, Normal Respiratory Effort Cardiovascular: Reports: Regular Rate, Regular Rhythm GI/Abdominal Exam: Normal Bowel Sounds, Soft, Non-Tender, No Organomegaly, No Distention, No Abnormal Bruit, No Mass, Pelvis Stable (Female) Exam: Normal External Exam, Normal Speculum Exam, Normal Bimanual Exam Rectal (Female) Exam: Normal Exam, Normal Rectal Tone Back Exam: Reports: Normal Inspection, Full Range of Motion Extremities: Normal Inspection, Normal Range of Motion, Non-Tender, No Pedal Edema, Normal Capillary Refill Skin: Reports: Warm, Dry, Intact Wound/Incisions: Reports: Healing Well Neurological: Reports: No New Focal Deficit Psy/Mental Status: Reports: Alert, Normal Affect, Normal Mood
[2020-07-07] MEDS: fentaNYL 100 MCG/2 ML SDV IVPUSH PRN ×2 (11:53→12:00)
--- NOTE | 2020-07-07 13:13 | PCM.POSTAN ---
POST ANESTHESIA ASSESSMENT - MENTAL STATUS Mental Status: Alert, Oriented - VITAL SIGNS Vital Signs: Last Vital Signs Temp 36.6 C 07/07/20 11:37 Pulse 99 07/07/20 12:28 Resp 18 07/07/20 12:28 BP 125/79 07/07/20 12:28 Pulse Ox 95 07/07/20 12:28 - RESPIRATORY Respiratory Status: Respiratory Rate WNL, Airway Patent, O2 Saturation Stable - CARDIOVASCULAR CV Status: Pulse Rate WNL, Blood Pressure Stable - GASTROINTESTINAL GI Status: No Symptoms - PAIN Pain Score: 5 - POST OP HYDRATION Hydration Status: Adequate & Stable - OBSERVATIONS Free Text/Narrative:: No anesthesia problems
[2020-07-07] MEDS ORDERED: Acetaminophen/HYDROcodone 325-10 MG Tab PO ONE (13:28)
--- NOTE | 2020-07-07 13:49 | OR ---
SURGEON: Rosalio Trevino MD DATE OF PROCEDURE: 07/07/2020 PREOPERATIVE DIAGNOSES: Pelvic pain and left adnexal mass. POSTOPERATIVE DIAGNOSES: Pelvic pain and left adnexal mass. OPERATIONS PERFORMED: Multiple-puncture diagnostic laparoscopy, extensive lysis of adhesion, left salpingo-oophorectomy, and cystoscopy. PRIMARY SURGEON: Rosalio Trevino MD ELECTRIC RELAY TESTER: OR tech. ANESTHESIA: General endotracheal intubation. ESTIMATED BLOOD LOSS: Less than 100 mL. COMPLICATIONS: None. FINDINGS: Extensive pelvic adhesion from her previous multiple sections and her appendectomy. The adnexal masses, which consist of the left tube and ovary, wrapped around with the omentum and a few small bowel loops of the intestine. PROCEDURE IN DETAIL: The patient was brought to the OR, properly identified, and after adequate level of general anesthesia, the patient placed in lithotomy position, prepped and draped in sterile fashion as usual, and the uterus manipulator placed in the uterus for manipulation. The operation shifted abdominally. Stab wound done beneath the umbilicus. The Veress needle was placed in the peritoneal cavity and that cavity insufflated with adequate amount of CO2, and after that utilizing the Visiport technique, the central trocar was placed in place under direct vision and then two trocars, 10/12, were placed in the left side and one 5 mm in the right side. The procedure started by exploring the pelvis, which showed a dense adhesion between the anterior abdominal wall and the omentum and dense adhesion around her left tube and ovary. The left tube and ovary were totally encased with omentum and few bowel of intestine. The right tube and ovary were reasonably normal, but still there was adhesion around them. We started the procedure by trying to restoring normal anatomy. Using the Harmonic scalpel, lysing of adhesion between the anterior abdominal wall and the omentum. Once was that accomplished, then we had a clear path to look in at the pelvis and her uterus was visualized and her uterus looked normal, mildly enlarged, which was consistent with a patient who had multiple pregnancies. Then, we started lysing the adhesion and the anterior wall of the uterus was lysed away from the anterior abdominal wall and the uterus became mobile. Once was that done, then the right tube and ovary were lysed with sharp and blunt dissection using the Harmonic scalpel. The right tube and ovary freed and they were reasonably normal. The left tube and ovary were totally abnormal and there were multiple loops of bowel of adhesion around them, and I felt that the left tube and ovary were not salvageable. So using the Harmonic scalpel, again with sharp and blunt dissection, the left tube and ovary were freed from its attachment to the small intestine and the pelvic sidewall and omentum and after that after taking the superior pedicle with the Harmonic scalpel, the left tube and ovary placed in Endo Bag and removed. Once we accomplished that, then thorough irrigation was done and inspection of the operative field showed no oozing, no bleeding. At this time, I decided to do cystoscopy. Fluorescein was given to the patient and Lasix was given, and after waiting a reasonable time, cystoscopy was performed. The bladder was intact. Both the ureteric orifices seen with the dye coming from both of them. The patency of both ureters verified. The multiple laparoscopic incisions were closed in layer. The procedure ended. The instrument and sponge count was correct. The patient tolerated the procedure well, went to recovery room in stable general condition. RICHARD / MAURIZIO /[id number]
--- NOTE | 2020-07-07 14:48 | PCM48HPAN ---
Post Anesthesia Note - EVALUATION WITHIN 48HRS OF ANESTHETIC Vital Signs in Normal Range: Yes Patient Participated in Evaluation: Yes Respiratory Function Stable: Yes Airway Patent: Yes Cardiovascular Function Stable: Yes Hydration Status Stable: Yes Pain Control Satisfactory: Yes Nausea and Vomiting Control Satisfactory: Yes Mental Status Recovered: Yes Vital Signs: Last Vital Signs Temp 36.4 C 07/07/20 12:31 Pulse 106 H 07/07/20 13:46 Resp 16 07/07/20 13:46 BP 141/83 H 07/07/20 13:46 Pulse Ox 95 07/07/20 13:46 - COMMENTS/OBSERVATIONS Free Text/Narrative:: The patient has no complaints at this time. There were no apparent anesthetic complications. Interpretation done via JEWELL. The patient meets the discharge criteria.
== END 2020-07-07 14:53 | disposition home or self-care (01) ==
LOC: MW.SDS 07:31
PROVIDERS: ATTEND Obstetrics & Gynecology
DX: N83.202 Unspecified ovarian cyst, left side (principal); K66.0 Peritoneal adhesions (postprocedural) (postinfection); I10 Essential (primary) hypertension; E11.9 Type 2 diabetes mellitus without complications; E66.9 Obesity, unspecified; Z68.35 Body mass index [BMI] 35.0-35.9, adult; Z79.84 Long term (current) use of oral hypoglycemic drugs; Z90.49 Acquired absence of other specified parts of digestive tract; Z79.899 Other long term (current) drug therapy
CPT/HCPCS: 00840; 36415; 80048; 84703; 85027; 86850; 86870; 86900; 86901; 88305; A9270-GY; J0131; J0690; J1100; J1885; J1940; J2250; J2370; J2405; J2704; J3010; J3490; J7120

== ENCOUNTER 2020-07-09 04:35 | Observation (INO) | payer OTHER ==
[2020-07-09] MEDS ORDERED: Sodium Chloride 0.9% 2.5 ML Syringe FLUSH PRN (04:48)
[2020-07-09] MEDS ORDERED: Sodium Chloride 0.9% 10 ML Syringe FLUSH PRN (04:48)
[2020-07-09 05:18] LABS: BLOOD UREA NITROGEN,BUN 12 mg/dL (7.0-18.0); CARBON DIOXIDE,CO2 27.9 mmol/L (21.0-32.0); CHLORIDE,CL 98 mmol/L (98-107); GLUCOSE RANDOM 175 mg/dL (74-106); LIPASE 78 U/L (73-393); POTASSIUM,K 4.5 mmol/L (3.5-5.1); SODIUM,NA 133 mmol/L (136-145)
[2020-07-09] MEDS ORDERED: Lactated Ringers 1,000 ML IV ONE (05:22)
--- NOTE | 2020-07-09 05:30 | EDM.PDOC ---
ED HPI GENERAL MEDICAL PROBLEM - General Chief Complaint: Abdominal Pain Stated Complaint: ABDOMINAL PAIN Time Seen by Provider: 07/09/20 04:37 - History of Present Illness INITIAL COMMENTS - FREE TEXT/NARRATIVE: 30-year-old female who is 2 days status post laparoscopic lysis of adhesions left fallopian tube and ovarian removal and cystoscopy who is presenting with persistent abdominal pain nausea and vomiting that was not relieved by Percocets at home. No fevers patient was doing well until tonight. Symptoms constant now sleeping comfortably after the Percocets at home and a dose of Dilaudid in the ambulance. History obtained from due to patient's sleepiness and language barrier. 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: IV/IO Abdomen Pain Score (Numeric/FACES): 10 - Related Data Allergies Allergy/AdvReac Type Severity Reaction Status Date / Time No Known Allergies Allergy Verified 07/09/20 04:48 Home Meds: Home Meds amLODIPine [Norvasc] 10 mg PO QAM 07/04/20 [History] hydroCHLOROthiazide [Hydrochlorothiazide] 12.5 mg PO QAM 07/04/20 [History] metFORMIN [Glucophage XR] 500 mg PO BID 07/04/20 [History] Past Medical History - Past Health History Medical/Surgical History: Denies Medical/Surgical History Cardiovascular History: Reports: Hypertension Other Cardiovascular History: just started on medication the end of May Respiratory History: Reports: None Other Respiratory History: says she snores Gastrointestinal History: Reports: None Genitourinary History: Reports: None DE ALCHOLIZER History: Reports: Fibroids, Musculoskeletal History: Reports: None Neurological History: Reports: None Psychiatric History: Reports: None Endocrine/Metabolic History: Reports: Diabetes, Type II, Obesity/BMI 30+ Other Endocrine/Metabolic History: recently had elevated Hgb A1C- started on Metformin 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 Pump 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 Hematologic History: Reports: None Immunologic History: Reports: None Oncologic (Cancer) History: Reports: None Dermatologic History: Reports: None - Infectious Disease History Infectious Disease History: Reports: None - Past Surgical History Head Surgeries/Procedures: Reports: None GI Surgical History: Reports: Appendectomy Female Surgical History: Reports: Section Social & Family History - Family History Family Medical History: No Pertinent Family History - Caffeine Use Caffeine Use: Reports: None - Recreational Drug Use Recreational Drug Use: No ED ROS GENERAL - Review of Systems Review Of Systems: See Below Free Text/Narrative/Comment: General: No fever. Neck: No neck stiffness. Respiratory: No shortness of breath. Cardiac: No chest pain. Gastrointestinal: Per HPI ED EXAM, GENERAL - Physical Exam Exam: See Below Free Text/Narrative:: General Appearance: No acute distress, appears comfortable Skin: No rash HEENT: Normocephalic/atraumatic, sclera anicteric, mucous membranes moist Neck: Normal range of motion Chest and Lungs: Bilateral breath sounds, clear to auscultation Cardiovascular: Regular rate and rhythm, no murmur Abdomen: Soft, bilateral lower quadrant tenderness greater on the left no peritonitis Back: Normal Musculoskeletal: No edema or tenderness Neurologic: Awake, alert, no obvious deficits, moving all extremities Psychiatric: Appropriate, cooperative Course - Vital Signs Last Recorded V/S: Last Vital Signs Temp 97.1 F 07/09/20 04:35 Pulse 86 07/09/20 06:32 Resp 16 07/09/20 06:32 BP 137/96 H 07/09/20 06:32 Pulse Ox 96 07/09/20 06:32 - Orders/Labs/Meds Orders: Active Orders 24 hr Category Date Time Status URINALYSIS W/MICROSCOPIC [UA W/MICROSCOPIC] [URIN] Stat Lab 07/09/20 04:49 Ordered Sodium Chloride 0.9% [Saline Flush] Med 07/09/20 04:48 Active 10 ml FLUSH ASDIRECTED PRN Sodium Chloride 0.9% [Saline Flush] Med 07/09/20 04:48 Active 2.5 ml FLUSH ASDIRECTED PRN Saline Lock Insert [OM.PC] Stat Oth 07/09/20 04:48 Ordered Medication Orders Sodium Chloride (Saline Flush) 10 ml FLUSH ASDIRECTED PRN PRN Reason: Keep Vein Open Sodium Chloride (Saline Flush) 2.5 ml FLUSH ASDIRECTED PRN PRN Reason: Keep Vein Open Labs: Laboratory Tests 07/09/20 07/09/20 Range/Units 04:45 04:45 WBC 11.00 (4.0-11.0) K/uL RBC 4.87 (4.30-5.90) M/uL Hgb 12.7 (12.0-16.0) g/dL Hct 40.2 (36.0-46.0) % MCV 82.5 (80.0-98.0) fL MCH 26.1 L (27.0-32.0) pg MCHC 31.6 (31.0-37.0) g/dL RDW Std Deviation 40.7 (28.0-62.0) fl RDW Coeff of Zoila 14 (11.0-15.0) % Plt Count 220 (150-400) K/uL MPV 13.70 H (7.40-12.00) fL Neut % (Auto) 70.3 (48.0-80.0) % Lymph % (Auto) 23.7 (16.0-40.0) % [place] % (Auto) 5.2 (0.0-15.0) % Eos % (Auto) 0.6 (0.0-7.0) % Baso % (Auto) 0.2 (0.0-1.5) % Neut # (Auto) 7.7 H (1.4-5.7) K/uL Lymph # (Auto) 2.6 H (0.6-2.4) K/uL [place] # (Auto) 0.6 (0.0-0.8) K/uL Eos # (Auto) 0.1 (0.0-0.7) K/uL Baso # (Auto) 0.0 (0.0-0.1) K/uL Nucleated RBC % 0.0 /100WBC Nucleated RBCs # 0 K/uL Sodium 133 L (136-145) mmol/L Potassium 4.5 (3.5-5.1) mmol/L Chloride 98 (98-107) mmol/L Carbon Dioxide 27.9 (21.0-32.0) mmol/L BUN 12 (7.0-18.0) mg/dL Creatinine 0.8 (0.6-1.0) mg/dL Est Cr Clr Drug Dosing TNP Estimated GFR (MDRD) > 60.0 ml/min Glucose 175 H (74-106) mg/dL Calcium 8.5 (8.5-10.1) mg/dL Total Bilirubin 0.3 (0.2-1.0) mg/dL AST 36 (15-37) IU/L ALT 30 (14-63) IU/L Alkaline Phosphatase 80 (46-116) U/L Total Protein 8.5 H (6.4-8.2) g/dL Albumin 3.3 L (3.4-5.0) g/dL Globulin 5.2 H (2.6-4.0) g/dL Albumin/Globulin Ratio 0.6 L (0.9-1.6) Lipase 78 (73-393) U/L Meds: Medications Generic Name Dose Route Start Last Admin Trade Name Freq PRN Reason Stop Dose Admin Sodium Chloride 10 ml 07/09/20 04:48 Saline Flush FLUSH ASDIRECTED PRN Keep Vein Open Sodium Chloride 2.5 ml 07/09/20 04:48 Saline Flush FLUSH ASDIRECTED PRN Keep Vein Open Discontinued Medications Generic Name Dose Route Start Last Admin Trade Name Freq PRN Reason Stop Dose Admin Lactated Ringer's 1,000 mls @ 999 mls/hr 07/09/20 05:22 07/09/20 05:28 Ringers, Lactated IV 07/09/20 06:22 999 mls/hr .BOLUS ONE Administration Iopamidol 100 ml 07/09/20 06:13 07/09/20 06:14 Isovue Multipack-370 (76%) IVPUSH 07/09/20 06:14 100 ml ONETIME STA Administration Departure - Departure Time of Disposition: 06:58 Disposition: Refer to Observation Condition: Good Clinical Impression: Small bowel obstruction - Discharge Information *PRESCRIPTION DRUG MONITORING PROGRAM REVIEWED*: Not Applicable *COPY OF PRESCRIPTION DRUG MONITORING REPORT IN PATIENT ERIKA: Not Applicable Forms: ED Department Discharge Sepsis Event Note (ED) - Evaluation Sepsis Screening Result: No Definite Risk - Focused Exam Vital Signs: Vital Signs Temp Pulse Resp BP Pulse Ox 07/09/20 06:32 86 16 137/96 H 96 07/09/20 04:35 97.1 F 94 18 146/103 H 88 L - My Orders Last 24 Hours: My Active Orders 07/09/20 04:48 Sodium Chloride 0.9% [Saline Flush] 10 ml FLUSH ASDIRECTED PRN Sodium Chloride 0.9% [Saline Flush] 2.5 ml FLUSH ASDIRECTED PRN Saline Lock Insert [OM.PC] Stat 07/09/20 04:49 URINALYSIS W/MICROSCOPIC [UA W/MICROSCOPIC] [URIN] Stat - Assessment/Plan Last 24 Hours: My Active Orders 07/09/20 04:48 Sodium Chloride 0.9% [Saline Flush] 10 ml FLUSH ASDIRECTED PRN Sodium Chloride 0.9% [Saline Flush] 2.5 ml FLUSH ASDIRECTED PRN Saline Lock Insert [OM.PC] Stat 07/09/20 04:49 URINALYSIS W/MICROSCOPIC [UA W/MICROSCOPIC] [URIN] Stat Assessment:: 30-year-old female presenting with postoperative abdominal pain. Labs and CT ordered. Patient appears comfortable at this time. 0655: Patient's labs are unremarkable. Patient CT scan demonstrates a small bowel obstruction. Since she is a postoperative patient of Dr. Trevino's will discuss with him first. 0657: Patient discussed in full with Dr. Trevino. Will proceed with admission to the hospital under observation onto his service. He states that he will take care of this himself and declines any additional consultations.
[2020-07-09] MEDS ORDERED: Iopamidol 755 MG/ML 500 ML Multipack Bottle IVPUSH STA (06:13)
--- NOTE | 2020-07-09 06:50 | CT ---
Indication: Abdominal pain and vomiting, 2 days status post laparoscopic lysis of adhesions and ovarian/fallopian tube removal Technique: Contrast enhanced axial CT imaging through the abdomen and pelvis. 100 mL Isovue 370 contrast agent was administered intravenously. Sagittal and coronal reconstructions are provided. Comparison: CT abdomen pelvis with contrast 05/23/2020 Findings: There are multiple mildly distended fluid-filled small bowel loops, measuring up to 3 cm, concerning for small bowel obstruction. Transition point is seen in the left lower quadrant at entry point of a left ventral hernia. Mild wall thickening is noted involving some of the distal distended bowel loops. There is no bowel pneumatosis or pneumoperitoneum. The hernia defect measures approximately 2.5 cm. A single nondistended loop of small bowel is seen within the hernia sac. The distal intra-abdominal small bowel is also decompressed. There is edema and mild subcutaneous emphysema in the left lower abdominal wall near the ventral hernia site, presumably relating to recent surgical incision. Small amount of extraperitoneal air is noted in the pelvis, greater on the left, also presumably postsurgical. Small amount of free fluid is noted in the abdomen. The urinary bladder, uterus, and adnexa are unremarkable. The stomach is unremarkable. There is no colonic wall thickening. The appendix is not visualized. No abnormalities are demonstrated relating to the liver, gallbladder, spleen, pancreas, adrenal glands, and kidneys. The portal vein is patent. The abdominal aorta is normal in caliber. There is no abdominal lymphadenopathy. The osseous structures are unremarkable. The included lung bases are clear. Impression: 1. Small left lower quadrant ventral hernia containing a single nondistended small bowel loop. This is new since prior study and may relate to site of recent surgical incision. 2. Mild distention of the intra-abdominal small bowel proximal to the herniated segment, consistent with small bowel obstruction secondary to hernia incarceration. No evidence of bowel ischemia or perforation. 3. Nonspecific mild abdominal ascites. No pneumoperitoneum. 4. Small amount of extraperitoneal air in the pelvis, more pronounced on the left, presumably postsurgical. Please note that all CT scans at this facility use dose modulation, iterative reconstruction, and/or weight-based dosing when appropriate to reduce radiation dose to as low as reasonably achievable. Dictated by Harley Bermudez MD @ Jul 09 2020 6:38AM Signed by Dr. Harley Bermudez @ Jul 09 2020 6:50AM
[2020-07-09] MEDS ORDERED: Lactated Ringers 1,000 ML IV SCH (07:15)
[2020-07-09] MEDS ORDERED: Ondansetron 4 MG/2 ML SDV IVPUSH ONE (08:36)
[2020-07-09] MEDS ORDERED: Bisacodyl 10 MG Supp RECTAL ONE (10:15)
--- NOTE | 2020-07-09 10:18 | PCM.PN ---
- General Info Date of Service: 07/09/20 Functional Status: Reports: Pain Controlled - Review of Systems General: Reports: No Symptoms HEENT: Reports: No Symptoms Pulmonary: Reports: No Symptoms Cardiovascular: Reports: No Symptoms Gastrointestinal: Reports: No Symptoms Genitourinary: Reports: No Symptoms Musculoskeletal: Reports: No Symptoms Skin: Reports: No Symptoms Neurological: Reports: No Symptoms Psychiatric: Reports: No Symptoms - Patient Data Vitals - Most Recent: Last Vital Signs Temp 36.2 C 07/09/20 09:46 Pulse 98 07/09/20 09:46 Resp 18 07/09/20 09:46 BP 172/92 H 07/09/20 09:46 Pulse Ox 96 07/09/20 09:46 Lab Results Last 24 Hours: Laboratory Results - last 24 hr 07/09/20 07/09/20 07/09/20 Range/Units 04:45 04:45 07:30 WBC 11.00 (4.0-11.0) K/uL RBC 4.87 (4.30-5.90) M/uL Hgb 12.7 (12.0-16.0) g/dL Hct 40.2 (36.0-46.0) % MCV 82.5 (80.0-98.0) fL MCH 26.1 L (27.0-32.0) pg MCHC 31.6 (31.0-37.0) g/dL RDW Std Deviation 40.7 (28.0-62.0) fl RDW Coeff of Zoila 14 (11.0-15.0) % Plt Count 220 (150-400) K/uL MPV 13.70 H (7.40-12.00) fL Neut % (Auto) 70.3 (48.0-80.0) % Lymph % (Auto) 23.7 (16.0-40.0) % [place] % (Auto) 5.2 (0.0-15.0) % Eos % (Auto) 0.6 (0.0-7.0) % Baso % (Auto) 0.2 (0.0-1.5) % Neut # (Auto) 7.7 H (1.4-5.7) K/uL Lymph # (Auto) 2.6 H (0.6-2.4) K/uL [place] # (Auto) 0.6 (0.0-0.8) K/uL Eos # (Auto) 0.1 (0.0-0.7) K/uL Baso # (Auto) 0.0 (0.0-0.1) K/uL Nucleated RBC % 0.0 /100WBC Nucleated RBCs # 0 K/uL Sodium 133 L (136-145) mmol/L Potassium 4.5 (3.5-5.1) mmol/L Chloride 98 (98-107) mmol/L Carbon Dioxide 27.9 (21.0-32.0) mmol/L BUN 12 (7.0-18.0) mg/dL Creatinine 0.8 (0.6-1.0) mg/dL Est Cr Clr Drug Dosing TNP Estimated GFR (MDRD) > 60.0 ml/min Glucose 175 H (74-106) mg/dL Calcium 8.5 (8.5-10.1) mg/dL Total Bilirubin 0.3 (0.2-1.0) mg/dL AST 36 (15-37) IU/L ALT 30 (14-63) IU/L Alkaline Phosphatase 80 (46-116) U/L Total Protein 8.5 H (6.4-8.2) g/dL Albumin 3.3 L (3.4-5.0) g/dL Globulin 5.2 H (2.6-4.0) g/dL Albumin/Globulin Ratio 0.6 L (0.9-1.6) Lipase 78 (73-393) U/L Urine Color Urine Appearance Urine pH (5.0-8.0) Ur Specific [place] (1.001-1.035) Urine Protein (NEGATIVE) mg/dL Urine Glucose (UA) (NEGATIVE) mg/dL Urine Ketones (NEGATIVE) mg/dL Urine Occult Blood (NEGATIVE) Urine Nitrite (NEGATIVE) Urine Bilirubin (NEGATIVE) Urine Urobilinogen (<2.0) EU/dL Ur Leukocyte Esterase (NEGATIVE) Urine RBC (0-2/HPF) Urine WBC (0-5/HPF) Ur Epithelial Cells (NONE-FEW) Calcium Oxalate Crystal (NEGATIVE) Urine Bacteria (NEGATIVE) SARS-CoV-2 RNA (KODI) NEGATIVE (NEGATIVE) 07/09/20 Range/Units 09:00 WBC (4.0-11.0) K/uL RBC (4.30-5.90) M/uL Hgb (12.0-16.0) g/dL Hct (36.0-46.0) % MCV (80.0-98.0) fL MCH (27.0-32.0) pg MCHC (31.0-37.0) g/dL RDW Std Deviation (28.0-62.0) fl RDW Coeff of Zoila (11.0-15.0) % Plt Count (150-400) K/uL MPV (7.40-12.00) fL Neut % (Auto) (48.0-80.0) % Lymph % (Auto) (16.0-40.0) % [place] % (Auto) (0.0-15.0) % Eos % (Auto) (0.0-7.0) % Baso % (Auto) (0.0-1.5) % Neut # (Auto) (1.4-5.7) K/uL Lymph # (Auto) (0.6-2.4) K/uL [place] # (Auto) (0.0-0.8) K/uL Eos # (Auto) (0.0-0.7) K/uL Baso # (Auto) (0.0-0.1) K/uL Nucleated RBC % /100WBC Nucleated RBCs # K/uL Sodium (136-145) mmol/L Potassium (3.5-5.1) mmol/L Chloride (98-107) mmol/L Carbon Dioxide (21.0-32.0) mmol/L BUN (7.0-18.0) mg/dL Creatinine (0.6-1.0) mg/dL Est Cr Clr Drug Dosing Estimated GFR (MDRD) ml/min Glucose (74-106) mg/dL Calcium (8.5-10.1) mg/dL Total Bilirubin (0.2-1.0) mg/dL AST (15-37) IU/L ALT (14-63) IU/L Alkaline Phosphatase (46-116) U/L Total Protein (6.4-8.2) g/dL Albumin (3.4-5.0) g/dL Globulin (2.6-4.0) g/dL Albumin/Globulin Ratio (0.9-1.6) Lipase (73-393) U/L Urine Color YELLOW Urine Appearance CLEAR Urine pH 5.5 (5.0-8.0) Ur Specific [place] 1.010 (1.001-1.035) Urine Protein NEGATIVE (NEGATIVE) mg/dL Urine Glucose (UA) NEGATIVE (NEGATIVE) mg/dL Urine Ketones NEGATIVE (NEGATIVE) mg/dL Urine Occult Blood TRACE-INTACT H (NEGATIVE) Urine Nitrite NEGATIVE (NEGATIVE) Urine Bilirubin NEGATIVE (NEGATIVE) Urine Urobilinogen 0.2 (<2.0) EU/dL Ur Leukocyte Esterase NEGATIVE (NEGATIVE) Urine RBC 0-2 (0-2/HPF) Urine WBC 0-1 (0-5/HPF) Ur Epithelial Cells FEW (NONE-FEW) Calcium Oxalate Crystal RARE (NEGATIVE) Urine Bacteria RARE (NEGATIVE) SARS-CoV-2 RNA (KODI) (NEGATIVE) Med Orders - Current: Current Medications Lactated Ringer's (Ringers, Lactated) 1,000 mls @ 150 mls/hr IV ASDIRECTED [facility] Sodium Chloride (Saline Flush) 10 ml FLUSH ASDIRECTED PRN PRN Reason: Keep Vein Open Sodium Chloride (Saline Flush) 2.5 ml FLUSH ASDIRECTED PRN PRN Reason: Keep Vein Open Discontinued Medications Bisacodyl (Dulcolax) 10 mg RECTAL ONETIME ONE Stop: 07/09/20 10:16 Lactated Ringer's (Ringers, Lactated) 1,000 mls @ 999 mls/hr IV .BOLUS ONE Stop: 07/09/20 06:22 Last Admin: 07/09/20 05:28 Dose: 999 mls/hr Documented by: Lactated Ringer's (Ringers, Lactated) 1,000 mls @ 125 mls/hr IV ASDIRECTED [facility] Last Admin: 07/09/20 07:30 Dose: 125 mls/hr Documented by: Iopamidol (Isovue Multipack-370 (76%)) 100 ml IVPUSH ONETIME STA Stop: 07/09/20 06:14 Last Admin: 07/09/20 06:14 Dose: 100 ml Documented by: Ondansetron HCl (Zofran) 4 mg IVPUSH ONETIME ONE Stop: 07/09/20 08:37 Last Admin: 07/09/20 08:43 Dose: 4 mg Documented by: - Exam General: Alert, Oriented HEENT: Pupils Equal, Pupils Reactive, EOMI, Mucous Membr. Moist/[place] Neck: Supple Lungs: Clear to Auscultation, Normal Respiratory Effort Cardiovascular: Regular Rate, Regular Rhythm GI/Abdominal Exam: Normal Bowel Sounds, Soft, Non-Tender, No Organomegaly, No Distention, No Abnormal Bruit, No Mass, Pelvis Stable (Female) Exam: Normal External Exam, Normal Speculum Exam, Normal Bimanual Exam Back Exam: Normal Inspection, Full Range of Motion Extremities: Normal Inspection, Normal Range of Motion, Non-Tender, No Pedal Edema, Normal Capillary Refill Skin: Warm, Dry, Intact Wound/Incisions: Healing Well Neurological: No New Focal Deficit Psy/Mental Status: Alert, Normal Affect, Normal Mood Sepsis Event Note - Evaluation Sepsis Screening Result: No Definite Risk - Focused Exam Vital Signs: Vital Signs Temp Pulse Resp BP Pulse Ox 07/09/20 09:46 36.2 C 98 18 172/92 H 96 07/09/20 08:46 96 18 97 07/09/20 08:00 96 18 132/80 98 07/09/20 07:30 94 18 153/105 H 99 07/09/20 06:32 86 16 137/96 H 96 07/09/20 04:35 36.2 C 94 18 146/103 H 88 L - Problem List Review Problem List Initiated/Reviewed/Updated: Yes - My Orders Last 24 Hours: My Active Orders 07/09/20 10:11 Vital Signs [RC] Q4H 07/09/20 10:15 Lactated Ringers [Ringers, Lactated] 1,000 ml IV ASDIRECTED 07/09/20 Lunch NPO [Nothing Per Oral Diet] [DIET] 07/10/20 05:00 CBC WITH AUTO DIFF [HEME] Routine - Assessment Assessment:: Doing well no vomiting. she passing gas. will try dilclox
[2020-07-09] MEDS: Morphine 10 MG/ML Syringe IVPUSH PRN ×2 (12:05→20:59)
[2020-07-09] MEDS: Lactated Ringers 1,000 ML IV SCH ×3 (12:11→21:35)
[2020-07-09] MEDS ORDERED: Ondansetron 4 MG/2 ML SDV IVPUSH PRN ×2 (14:29→14:31)
[2020-07-09] MEDS ORDERED: Hydrochlorothiazide 12.5 MG Cap PO ONE (14:36)
[2020-07-09] MEDS ORDERED: amLODIPine 5 MG Tab PO ONE (14:37)
[2020-07-09] MEDS: metFORMIN 500 MG Tab.ER PO SCH (21:31)
[2020-07-10] MEDS: Lactated Ringers 1,000 ML IV SCH ×7 (00:51→22:10)
[2020-07-10] MEDS: amLODIPine 5 MG Tab PO SCH (08:31)
[2020-07-10] MEDS: metFORMIN 500 MG Tab.ER PO SCH ×2 (08:31→20:36)
[2020-07-10] MEDS: Hydrochlorothiazide 12.5 MG Cap PO SCH (08:32)
[2020-07-10] MEDS: Morphine 10 MG/ML Syringe IVPUSH PRN (08:32)
[2020-07-10] MEDS ORDERED: Iopamidol 755 MG/ML 500 ML Multipack Bottle IVPUSH ONE (09:32)
--- NOTE | 2020-07-10 10:54 | CT ---
INDICATION: Abdominal pain, obstruction. TECHNIQUE: CT abdomen and pelvis with intravenous contrast, 100 mL of Isovue-370. Coronal and sagittal formats. COMPARISON: CT 07/09/2020. FINDINGS: Imaged lower chest unremarkable. - Normal liver contour. No suspicious hepatic lesion. Portal and hepatic veins patent. Normal gallbladder. No biliary dilatation. Pancreas, spleen, and adrenals appear normal. - Kidneys are symmetric in size and enhancement. No hydronephrosis bilaterally. Decompressed bladder. Anteverted uterus. - Colon is largely decompressed. Persistent small bowel dilatation with transition point in the left lower abdomen at the site of a ventral hernia containing a C-shaped small-bowel loop. Small-bowel appears to enhance normally diffusely, though there are areas of mesenteric fluid/edema as well as small volume pelvic free fluid. No pneumoperitoneum or organized/drainable collection. - Normal caliber abdominal aorta. Major branch vessels are patent. No suspicious osseous lesion. IMPRESSION: 1. Persistent small bowel obstruction secondary to left lower abdominal bowel-containing hernia. If hernia is not reducible, surgical consultation is recommended. 2. Bowel appears to enhance normally, but is at risk of ischemia. Persistent small volume pelvic free fluid and meseneteric edema. Dictated by Pradeep Read MD @ 07/10/2020 10:16:57 AM Prelim Report By Dr. Pradeep Read @ 07/10/2020 10:52:49 AM ADDENDUM The ordering provider, Dr. Trevino, was unreachable by phone for results despite several attempts. Case discussed with Dr. Howell of surgery on 07/10/2020 at 11:35 AM Please note that all CT scans at this facility use dose modulation, iterative reconstruction, and/or weight-based dosing when appropriate to reduce radiation dose to as low as reasonably achievable. Dictated by: MD @ 07/10/2020 11:42:31 (Electronically Signed)
[2020-07-10] MEDS ORDERED: Sugammadex Sodium 200 MG/2 ML VIAL ONE (13:15)
--- NOTE | 2020-07-10 13:16 | PCM.HP.2 ---
H&P History of Present Illness - General Date of Service: 07/10/20 Admit Problem/Dx: Admission Diagnosis/Problem Admission Diagnosis/Problem Small bowel obstruction Source of Information: Patient History Limitations: Reports: No Limitations - History of Present Illness Onset of Symptoms: Reports: Gradual Improves with: Reports: None Worsens with: Reports: None Associated Symptoms: Reports: No Other Symptoms Abdomen Pain Score (Numeric/FACES): 10 - Related Data Allergies/Adverse Reactions: Allergies Allergy/AdvReac Type Severity Reaction Status Date / Time No Known Allergies Allergy Verified 07/09/20 12:25 Home Medications: Home Meds amLODIPine [Norvasc] 10 mg PO QAM 07/04/20 [History] hydroCHLOROthiazide [Hydrochlorothiazide] 12.5 mg PO QAM 07/04/20 [History] metFORMIN [Glucophage XR] 500 mg PO BID 07/04/20 [History] Past Medical History - Past Health History Medical/Surgical History: Denies Medical/Surgical History Cardiovascular History: Reports: Hypertension Other Cardiovascular History: just started on medication the end of May Respiratory History: Reports: None Other Respiratory History: says she snores Gastrointestinal History: Reports: None Genitourinary History: Reports: None [employer] History: Reports: Fibroids, Musculoskeletal History: Reports: None Neurological History: Reports: None Psychiatric History: Reports: None Endocrine/Metabolic History: Reports: Diabetes, Type II, Obesity/BMI 30+ Other Endocrine/Metabolic History: recently had elevated Hgb A1C- started on Metformin Insulin Pump Model and Drop Man: None Hematologic History: Reports: None Immunologic History: Reports: None Oncologic (Cancer) History: Reports: None Dermatologic History: Reports: None - Infectious Disease History Infectious Disease History: Reports: None - Past Surgical History Head Surgeries/Procedures: Reports: None GI Surgical History: Reports: Appendectomy Female Surgical History: Reports: Section Social & Family History - Family History Family Medical History: No Pertinent Family History - Tobacco Use Tobacco Use Status *Q: Never Tobacco User Second Hand Smoke Exposure: No - Caffeine Use Caffeine Use: Reports: None - Recreational Drug Use Recreational Drug Use: No H&P Review of Systems - Review of Systems: Review Of Systems: See Below General: Reports: No Symptoms HEENT: Reports: No Symptoms Pulmonary: Reports: No Symptoms Cardiovascular: Reports: No Symptoms Gastrointestinal: Reports: No Symptoms Genitourinary: Reports: No Symptoms Musculoskeletal: Reports: No Symptoms Skin: Reports: No Symptoms Psychiatric: Reports: No Symptoms Neurological: Reports: No Symptoms Hematologic/Lymphatic: Reports: No Symptoms Immunologic: Reports: No Symptoms Exam - Exam Exam: See Below - Vital Signs Vital Signs: Last Vital Signs Temp 36.5 C 07/10/20 12:00 Pulse 103 H 07/10/20 12:00 Resp 17 07/10/20 12:00 BP 143/92 H 07/10/20 12:00 Pulse Ox 97 07/10/20 12:00 Weight: 120.656 kg - Exam General: Alert, Oriented, 4 HEENT: PERRLA, Hearing Intact, Mucosa Moist & [place], Nares Patent, Normal Nasal Septum, Posterior Pharynx Clear, Conjunctiva Clear, EOMI, EACs Clear, TMs Clear Neck: Supple, Trachea Midline, 2 Lungs: Clear to Auscultation, Normal Respiratory Effort Cardiovascular: Regular Rate, Regular Rhythm GI/Abdominal Exam: Normal Bowel Sounds, Soft, Non-Tender, No Organomegaly, No Distention, No Abnormal Bruit, No Mass, Pelvis Stable (Female) Exam: Normal External Exam, Normal Speculum Exam, Normal Bimanual Exam Rectal (Female) Exam: Normal Exam, Normal Rectal Tone Back Exam: Normal Inspection, Full Range of Motion, NT Extremities: Normal Inspection, Normal Range of Motion, Non-Tender, No Pedal Edema, Normal Capillary Refill Skin: Warm, Dry, Intact Neurological: Cranial Nerves Intact, Reflexes Equal Bilateral Neuro Extensive - Mental Status: Alert, Oriented x3, Normal Mood/Affect, Normal Cognition Neuro Extensive - Motor, Sensory, Reflexes: CN II-XII Intact, Normal Gait, Normal Reflexes Psychiatric: Alert, Normal Affect, Normal Mood - Patient Data Lab Results Last 24 hrs: Laboratory Results - last 24 hr 07/09/20 07/10/20 07/10/20 Range/Units 21:31 06:13 06:15 WBC 7.77 (4.0-11.0) K/uL RBC 4.47 (4.30-5.90) M/uL Hgb 11.6 L (12.0-16.0) g/dL Hct 37.4 (36.0-46.0) % MCV 83.7 (80.0-98.0) fL MCH 26.0 L (27.0-32.0) pg MCHC 31.0 (31.0-37.0) g/dL RDW Std Deviation 40.6 (28.0-62.0) fl RDW Coeff of Zoila 13 (11.0-15.0) % Plt Count 199 (150-400) K/uL MPV 12.90 H (7.40-12.00) fL Neut % (Auto) 62.7 (48.0-80.0) % Lymph % (Auto) 27.8 (16.0-40.0) % [place] % (Auto) 8.4 (0.0-15.0) % Eos % (Auto) 1.0 (0.0-7.0) % Baso % (Auto) 0.1 (0.0-1.5) % Neut # (Auto) 4.9 (1.4-5.7) K/uL Lymph # (Auto) 2.2 (0.6-2.4) K/uL [place] # (Auto) 0.7 (0.0-0.8) K/uL Eos # (Auto) 0.1 (0.0-0.7) K/uL Baso # (Auto) 0.0 (0.0-0.1) K/uL Nucleated RBC % 0.0 /100WBC Nucleated RBCs # 0 K/uL POC Glucose 119 H 124 H (60-110) mg/dL Result Diagrams: 07/10/20 06:15 07/09/20 04:45 Sepsis Event Note - Evaluation Sepsis Screening Result: No Definite Risk - Focused Exam Vital Signs: Vital Signs Temp Pulse Resp BP BP Pulse Ox 07/10/20 12:00 36.5 C 103 H 17 143/92 H 97 07/10/20 08:31 197/109 H 07/10/20 08:27 37.1 C 96 18 197/109 H 93 L 07/10/20 05:13 95 07/10/20 04:00 36.7 C 96 16 141/80 H 96 07/10/20 03:55 36.8 C 92 19 161/93 H 96 Problem List Initiated/Reviewed/Updated: Yes Orders Last 24hrs: Active Orders 24 hr Category Date Time Status Urine HCG [HCG QUALITATIVE,URINE] [URCHEM] Stat Lab 07/10/20 13:09 Received Ondansetron [Zofran] Med 07/09/20 14:31 Active 4 mg IVPUSH Q4H PRN amLODIPine [Norvasc] Med 07/10/20 09:00 Active 10 mg PO DAILY hydroCHLOROthiazide Med 07/10/20 09:00 Active 12.5 mg PO DAILY metFORMIN [Glucophage XR] Med 07/09/20 21:00 Active 500 mg PO BID Medication Orders Amlodipine Besylate (Norvasc) 10 mg PO DAILY [facility] Last Admin: 07/10/20 08:31 Dose: 10 mg Documented by: KATRINA Hydrochlorothiazide (Hydrochlorothiazide) 12.5 mg PO DAILY [facility] Last Admin: 07/10/20 08:32 Dose: 12.5 mg Documented by: KATRINA Lactated Ringer's (Ringers, Lactated) 1,000 mls @ 150 mls/hr IV Q6H [facility] Last Admin: 07/10/20 13:04 Dose: 150 mls/hr Documented by: Infusion: 07/10/20 11:45 Dose: 150 mls/hr Documented by: Admin: 07/10/20 10:43 Dose: Not Given Documented by: Admin: 07/10/20 05:04 Dose: 150 mls/hr Documented by: Infusion: 07/10/20 04:16 Dose: 150 mls/hr Documented by: Admin: 07/10/20 00:51 Dose: Not Given Documented by: Admin: 07/09/20 21:35 Dose: 150 mls/hr Documented by: Infusion: 07/09/20 21:31 Dose: 150 mls/hr Documented by: Admin: 07/09/20 14:50 Dose: 150 mls/hr Documented by: Infusion: 07/09/20 14:50 Dose: 150 mls/hr Documented by: Admin: 07/09/20 12:11 Dose: 150 mls/hr Documented by: KATRINA Metformin HCl (Glucophage Xr) 500 mg PO BID [facility] Last Admin: 07/10/20 08:31 Dose: 500 mg Documented by: Admin: 07/09/20 21:31 Dose: 500 mg Documented by: BELKIS Morphine Sulfate (Morphine) 5 mg IVPUSH Q6H PRN PRN Reason: Pain Last Admin: 07/10/20 08:32 Dose: 5 mg Documented by: [id number] Admin: 07/09/20 20:59 Dose: 5 mg Documented by: Admin: 07/09/20 12:05 Dose: 5 mg Documented by: [id number] Ondansetron HCl (Zofran) 4 mg IVPUSH Q4H PRN PRN Reason: Nausea/Vomiting Sodium Chloride (Saline Flush) 10 ml FLUSH ASDIRECTED PRN PRN Reason: Keep Vein Open Sodium Chloride (Saline Flush) 2.5 ml FLUSH ASDIRECTED PRN PRN Reason: Keep Vein Open Assessment/Plan Comment:: SBO expectant management.
[2020-07-10] MEDS ORDERED: Propofol 200 MG/20 ML SDV ONE (13:17)
[2020-07-10] MEDS ORDERED: fentaNYL 250 MCG/5 ML SDV ONE ×2 (13:18→14:32)
[2020-07-10] MEDS ORDERED: Midazolam 1 MG/ML 2 ML SDV ONE (13:18)
[2020-07-10] MEDS ORDERED: Rocuronium Bromide 50 MG/5 ML Syringe ONE (13:19)
[2020-07-10] MEDS ORDERED: Ketorolac 30 MG/ML SDV ONE (13:19)
[2020-07-10] MEDS ORDERED: Ondansetron 4 MG/2 ML SDV ONE (13:19)
[2020-07-10] MEDS ORDERED: Glycopyrrolate 0.2 MG/ML SDV ONE (13:19)
[2020-07-10] MEDS ORDERED: Lidocaine 2% 5 ML SDV ONE (13:19)
[2020-07-10] MEDS ORDERED: Acetaminophen 1,000 MG in Premix Bag 1 BAG IV PRN (13:30)
[2020-07-10] MEDS ORDERED: fentaNYL 100 MCG/2 ML SDV IVPUSH PRN (13:30)
[2020-07-10] MEDS ORDERED: Octyl 2-Cyanoacrylate 1 Tube ONE (14:56)
--- NOTE | 2020-07-10 15:07 | PCM.OPNOTE ---
- General Post-Op/Procedure Note Date of Surgery/Procedure: 07/10/20 Operative Procedure(s): Dignostic laparascopy Post-Op Diagnosis: Same Anesthesia Technique: General ET Tube Primary Surgeon: Rosalio Trevino EBL in mLs: 50 Complications: None Condition: Fair Free Text/Narrative:: Intake & Output 07/10/20 07/10/20 07/10/20 06:59 14:59 22:59 Intake Total 970 Output Total 800 Balance 170
--- NOTE | 2020-07-10 15:21 | PCM.PREANE ---
Preanesthetic Assessment - Anesthesia/Transfusion/Family Hx Anesthesia History: Prior Anesthesia Without Reaction Family History of Anesthesia Reaction: No Transfusion History: Prior Transfusion Without Reaction Intubation History: Unknown - Review of Systems Gastrointestinal: Abdominal Pain, Nausea - Physical Assessment NPO Status Date: 07/10/20 NPO Status Time: 00:05 Vital Signs: Last Vital Signs Temp 36.5 C 07/10/20 12:00 Pulse 103 H 07/10/20 12:00 Resp 17 07/10/20 12:00 BP 143/92 H 07/10/20 12:00 Pulse Ox 97 07/10/20 12:00 Height: 1.73 m Weight: 120.656 kg ASA Class: 2E - Lab Values: Laboratory Last Values WBC 7.77 K/uL (4.0-11.0) 07/10/20 06:15 RBC 4.47 M/uL (4.30-5.90) 07/10/20 06:15 Hgb 11.6 g/dL (12.0-16.0) L 07/10/20 06:15 Hct 37.4 % (36.0-46.0) 07/10/20 06:15 MCV 83.7 fL (80.0-98.0) 07/10/20 06:15 MCH 26.0 pg (27.0-32.0) L 07/10/20 06:15 MCHC 31.0 g/dL (31.0-37.0) 07/10/20 06:15 RDW Std Deviation 40.6 fl (28.0-62.0) 07/10/20 06:15 RDW Coeff of Zoila 13 % (11.0-15.0) 07/10/20 06:15 Plt Count 199 K/uL (150-400) 07/10/20 06:15 MPV 12.90 fL (7.40-12.00) H 07/10/20 06:15 Neut % (Auto) 62.7 % (48.0-80.0) 07/10/20 06:15 Lymph % (Auto) 27.8 % (16.0-40.0) 07/10/20 06:15 [place] % (Auto) 8.4 % (0.0-15.0) 07/10/20 06:15 Eos % (Auto) 1.0 % (0.0-7.0) 07/10/20 06:15 Baso % (Auto) 0.1 % (0.0-1.5) 07/10/20 06:15 Neut # (Auto) 4.9 K/uL (1.4-5.7) 07/10/20 06:15 Lymph # (Auto) 2.2 K/uL (0.6-2.4) 07/10/20 06:15 [place] # (Auto) 0.7 K/uL (0.0-0.8) 07/10/20 06:15 Eos # (Auto) 0.1 K/uL (0.0-0.7) 07/10/20 06:15 Baso # (Auto) 0.0 K/uL (0.0-0.1) 07/10/20 06:15 Nucleated RBC % 0.0 /100WBC 07/10/20 06:15 Nucleated RBCs # 0 K/uL 07/10/20 06:15 Sodium 133 mmol/L (136-145) L 07/09/20 04:45 Potassium 4.5 mmol/L (3.5-5.1) 07/09/20 04:45 Chloride 98 mmol/L (98-107) 07/09/20 04:45 Carbon Dioxide 27.9 mmol/L (21.0-32.0) 07/09/20 04:45 BUN 12 mg/dL (7.0-18.0) 07/09/20 04:45 Creatinine 0.8 mg/dL (0.6-1.0) 07/09/20 04:45 Est Cr Clr Drug Dosing TNP 07/09/20 04:45 Estimated GFR (MDRD) > 60.0 ml/min 07/09/20 04:45 Glucose 175 mg/dL (74-106) H 07/09/20 04:45 POC Glucose 124 mg/dL (60-110) H 07/10/20 06:13 Calcium 8.5 mg/dL (8.5-10.1) 07/09/20 04:45 Total Bilirubin 0.3 mg/dL (0.2-1.0) 07/09/20 04:45 AST 36 IU/L (15-37) 07/09/20 04:45 ALT 30 IU/L (14-63) 07/09/20 04:45 Alkaline Phosphatase 80 U/L (46-116) 07/09/20 04:45 Total Protein 8.5 g/dL (6.4-8.2) H 07/09/20 04:45 Albumin 3.3 g/dL (3.4-5.0) L 07/09/20 04:45 Globulin 5.2 g/dL (2.6-4.0) H 07/09/20 04:45 Albumin/Globulin Ratio 0.6 (0.9-1.6) L 07/09/20 04:45 Lipase 78 U/L (73-393) 07/09/20 04:45 Urine Color YELLOW 07/09/20 09:00 Urine Appearance CLEAR 07/09/20 09:00 Urine pH 5.5 (5.0-8.0) 07/09/20 09:00 Ur Specific [place] 1.010 (1.001-1.035) 07/09/20 09:00 Urine Protein NEGATIVE mg/dL (NEGATIVE) 07/09/20 09:00 Urine Glucose (UA) NEGATIVE mg/dL (NEGATIVE) 07/09/20 09:00 Urine Ketones NEGATIVE mg/dL (NEGATIVE) 07/09/20 09:00 Urine Occult Blood TRACE-INTACT (NEGATIVE) H 07/09/20 09:00 Urine Nitrite NEGATIVE (NEGATIVE) 07/09/20 09:00 Urine Bilirubin NEGATIVE (NEGATIVE) 07/09/20 09:00 Urine Urobilinogen 0.2 EU/dL (<2.0) 07/09/20 09:00 Ur Leukocyte Esterase NEGATIVE (NEGATIVE) 07/09/20 09:00 Urine RBC 0-2 (0-2/HPF) 07/09/20 09:00 Urine WBC 0-1 (0-5/HPF) 07/09/20 09:00 Ur Epithelial Cells FEW (NONE-FEW) 07/09/20 09:00 Calcium Oxalate Crystal RARE (NEGATIVE) 07/09/20 09:00 Urine Bacteria RARE (NEGATIVE) 07/09/20 09:00 Urine HCG, Qual NEGATIVE (NEGATIVE) 07/10/20 13:09 SARS-CoV-2 RNA (KODI) NEGATIVE (NEGATIVE) 07/09/20 07:30 - Allergies Allergies/Adverse Reactions: Allergies Allergy/AdvReac Type Severity Reaction Status Date / Time No Known Allergies Allergy Verified 07/09/20 12:25 - Acknowledgements Anesthesia Type Planned: General Anesthesia Pt an Appropriate Candidate for the Planned Anesthesia: Yes Alternatives and Risks of Anesthesia Discussed w Pt/Guardian: Yes Pt/Guardian Understands and Agrees with Anesthesia Plan: Yes PreAnesthesia Questionnaire - Past Health History Medical/Surgical History: Denies Medical/Surgical History Cardiovascular History: Reports: Hypertension Other Cardiovascular History: just started on medication the end may Respiratory History: Reports: None Other Respiratory History: says she snores Gastrointestinal History: Reports: None Genitourinary History: Reports: None 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 CARDIAC History: Reports: Fibroids, Musculoskeletal History: Reports: None Neurological History: Reports: None Psychiatric History: Reports: None Endocrine/Metabolic History: Reports: Diabetes, Type II, Obesity/BMI 30+ Other Endocrine/Metabolic History: recently had elevated Hgb A1C- started on Metformin Hematologic History: Reports: None Immunologic History: Reports: None Oncologic (Cancer) History: Reports: None Dermatologic History: Reports: None - Infectious Disease History Infectious Disease History: Reports: None - Past Surgical History Head Surgeries/Procedures: Reports: None GI Surgical History: Reports: Appendectomy Female Surgical History: Reports: Section - SUBSTANCE USE Tobacco Use Status *Q: Never Tobacco User Tobacco Use Within Last Twelve Months: No Second Hand Smoke Exposure: No Recreational Drug Use History: No - HOME MEDS Home Medications: Home Meds amLODIPine [Norvasc] 10 mg PO QAM 07/04/20 [History] hydroCHLOROthiazide [Hydrochlorothiazide] 12.5 mg PO QAM 07/04/20 [History] metFORMIN [Glucophage XR] 500 mg PO BID 07/04/20 [History] - CURRENT (IN HOUSE) MEDS Current Meds: Current Medications Amlodipine Besylate (Norvasc) 10 mg PO DAILY [facility] Last Admin: 07/10/20 08:31 Dose: 10 mg Documented by: Fentanyl (Sublimaze) 50 mcg IVPUSH Q5M PRN PRN Reason: Pain Hydrochlorothiazide (Hydrochlorothiazide) 12.5 mg PO DAILY [facility] Last Admin: 07/10/20 08:32 Dose: 12.5 mg Documented by: Lactated Ringer's (Ringers, Lactated) 1,000 mls @ 150 mls/hr IV Q6H [facility] Last Admin: 07/10/20 13:04 Dose: 150 mls/hr Documented by: Acetaminophen 1,000 mg/ Premix 100 mls @ 400 mls/hr IV Q6H PRN PRN Reason: Pain Metformin HCl (Glucophage Xr) 500 mg PO BID [facility] Last Admin: 07/10/20 08:31 Dose: 500 mg Documented by: Morphine Sulfate (Morphine) 5 mg IVPUSH Q6H PRN PRN Reason: Pain Last Admin: 07/10/20 08:32 Dose: 5 mg Documented by: Ondansetron HCl (Zofran) 4 mg IVPUSH Q4H PRN PRN Reason: Nausea/Vomiting Sodium Chloride (Saline Flush) 10 ml FLUSH ASDIRECTED PRN PRN Reason: Keep Vein Open Sodium Chloride (Saline Flush) 2.5 ml FLUSH ASDIRECTED PRN PRN Reason: Keep Vein Open Discontinued Medications Amlodipine Besylate (Norvasc) 10 mg PO ONETIME ONE Stop: 07/09/20 14:38 Last Admin: 07/09/20 14:51 Dose: 10 mg Documented by: Bisacodyl (Dulcolax) 10 mg RECTAL ONETIME ONE Stop: 07/09/20 10:16 Last Admin: 07/09/20 12:10 Dose: 10 mg Documented by: Fentanyl (Sublimaze) Confirm Administered Dose 250 mcg .ROUTE .STK-MED ONE Stop: 07/10/20 13:19 Fentanyl (Sublimaze) Confirm Administered Dose 250 mcg .ROUTE .STK-MED ONE Stop: 07/10/20 14:33 Glycopyrrolate (Robinul) Confirm Administered Dose 0.2 mg .ROUTE .STK-MED ONE Stop: 07/10/20 13:20 Hydrochlorothiazide (Hydrochlorothiazide) 12.5 mg PO ONETIME ONE Stop: 07/09/20 14:37 Last Admin: 07/09/20 14:51 Dose: 12.5 mg Documented by: Lactated Ringer's (Ringers, Lactated) 1,000 mls @ 999 mls/hr IV .BOLUS ONE Stop: 07/09/20 06:22 Last Admin: 07/09/20 05:28 Dose: 999 mls/hr Documented by: Lactated Ringer's (Ringers, Lactated) 1,000 mls @ 125 mls/hr IV ASDIRECTED [facility] Last Admin: 07/09/20 07:30 Dose: 125 mls/hr Documented by: Iopamidol (Isovue Multipack-370 (76%)) 100 ml IVPUSH ONETIME STA Stop: 07/09/20 06:14 Last Admin: 07/09/20 06:14 Dose: 100 ml Documented by: Iopamidol (Isovue Multipack-370 (76%)) 100 ml IVPUSH ONETIME ONE Stop: 07/10/20 09:33 Last Admin: 07/10/20 09:33 Dose: 100 ml Documented by: Ketorolac Tromethamine (Toradol) Confirm Administered Dose 30 mg .ROUTE .STK-MED ONE Stop: 07/10/20 13:20 Lidocaine (Xylocaine-Mpf 2%) Confirm Administered Dose 5 ml .ROUTE .STK-MED ONE Stop: 07/10/20 13:20 Midazolam HCl (Versed 1 Mg/Ml) Confirm Administered Dose 2 mg .ROUTE .STK-MED ONE Stop: 07/10/20 13:19 Octyl Cyanoacrylate (Dermabond Advance) Confirm Administered Dose 1 applic .ROUTE .STK-MED ONE Stop: 07/10/20 14:57 Ondansetron HCl (Zofran) 4 mg IVPUSH ONETIME ONE Stop: 07/09/20 08:37 Last Admin: 07/09/20 08:43 Dose: 4 mg Documented by: Ondansetron HCl (Zofran) 4 mg IVPUSH Q6H PRN PRN Reason: Nausea/Vomiting Ondansetron HCl (Zofran) Confirm Administered Dose 4 mg .ROUTE .STK-MED ONE Stop: 07/10/20 13:20 Propofol (Diprivan 20 Ml) Confirm Administered Dose 200 mg .ROUTE .STK-MED ONE Stop: 07/10/20 13:18 Rocuronium [place] (Rocuronium [place]) Confirm Administered Dose 50 mg .ROUTE .STK-MED ONE Stop: 07/10/20 13:20 Sugammadex Sodium (Bridion) Confirm Administered Dose 200 mg .ROUTE .STK-MED ONE Stop: 07/10/20 13:16
--- NOTE | 2020-07-10 16:16 | PCM.POSTAN ---
POST ANESTHESIA ASSESSMENT - MENTAL STATUS Mental Status: Alert - VITAL SIGNS Vital Signs: Last Vital Signs Temp 37 C 07/10/20 15:13 Pulse 96 07/10/20 16:04 Resp 16 07/10/20 16:04 BP 128/78 07/10/20 16:04 Pulse Ox 94 L 07/10/20 16:04 - RESPIRATORY Respiratory Status: Respiratory Rate WNL - CARDIOVASCULAR CV Status: Pulse Rate WNL - GASTROINTESTINAL GI Status: No Symptoms - POST OP HYDRATION Hydration Status: Adequate & Stable
[2020-07-11] MEDS: Lactated Ringers 1,000 ML IV SCH (04:24)
--- NOTE | 2020-07-11 07:10 | PCM48HPAN ---
Post Anesthesia Note - EVALUATION WITHIN 48HRS OF ANESTHETIC Vital Signs in Normal Range: Yes Patient Participated in Evaluation: Yes Respiratory Function Stable: Yes Airway Patent: Yes Cardiovascular Function Stable: Yes Hydration Status Stable: Yes Pain Control Satisfactory: Yes Nausea and Vomiting Control Satisfactory: Yes Mental Status Recovered: Yes Vital Signs: Last Vital Signs Temp 36.7 C 07/11/20 04:42 Pulse 98 07/11/20 04:42 Resp 18 07/11/20 04:42 BP 147/94 H 07/11/20 04:42 Pulse Ox 95 07/11/20 04:42
[2020-07-11] MEDS: metFORMIN 500 MG Tab.ER PO SCH (08:36)
[2020-07-11] MEDS: amLODIPine 5 MG Tab PO SCH (08:36)
[2020-07-11] MEDS: Hydrochlorothiazide 12.5 MG Cap PO SCH (08:36)
--- NOTE | 2020-07-11 11:31 | PCM.SURGPN ---
- General Info Date of Service: 07/11/20 POD#: 1 Functional Status: Reports: Pain Controlled - Review of Systems General: Reports: No Symptoms HEENT: Reports: No Symptoms Pulmonary: Reports: No Symptoms Cardiovascular: Reports: No Symptoms Gastrointestinal: Reports: No Symptoms Genitourinary: Reports: No Symptoms Musculoskeletal: Reports: No Symptoms Skin: Reports: No Symptoms Neurological: Reports: No Symptoms Psychiatric: Reports: No Symptoms - Patient Data Vitals - Most Recent: Last Vital Signs Temp 36.7 C 07/11/20 08:00 Pulse 97 07/11/20 08:00 Resp 20 07/11/20 08:00 BP 132/76 07/11/20 08:36 Pulse Ox 96 07/11/20 08:35 Weight - Most Recent: 120.656 kg I&O - Last 24 Hours: Intake & Output 07/10/20 07/11/20 07/11/20 22:59 06:59 14:59 Intake Total 2928 1785 880 Output Total 1650 2500 Balance 1278 -715 880 Lab Results Last 24 Hrs: Laboratory Results - last 24 hr 07/10/20 07/11/20 Range/Units 13:09 05:50 POC Glucose 96 (60-110) mg/dL Urine HCG, Qual NEGATIVE (NEGATIVE) Med Orders - Current: Current Medications Amlodipine Besylate (Norvasc) 10 mg PO DAILY [facility] Last Admin: 07/11/20 08:36 Dose: 10 mg Documented by: Hydrochlorothiazide (Hydrochlorothiazide) 12.5 mg PO DAILY [facility] Last Admin: 07/11/20 08:36 Dose: 12.5 mg Documented by: Lactated Ringer's (Ringers, Lactated) 1,000 mls @ 150 mls/hr IV Q6H [facility] Last Admin: 07/11/20 04:24 Dose: 150 mls/hr Documented by: Acetaminophen 1,000 mg/ Premix 100 mls @ 400 mls/hr IV Q6H PRN PRN Reason: Pain Metformin HCl (Glucophage Xr) 500 mg PO BID [facility] Last Admin: 07/11/20 08:36 Dose: 500 mg Documented by: Morphine Sulfate (Morphine) 5 mg IVPUSH Q6H PRN PRN Reason: Pain Last Admin: 07/10/20 08:32 Dose: 5 mg Documented by: Ondansetron HCl (Zofran) 4 mg IVPUSH Q4H PRN PRN Reason: Nausea/Vomiting Sodium Chloride (Saline Flush) 10 ml FLUSH ASDIRECTED PRN PRN Reason: Keep Vein Open Sodium Chloride (Saline Flush) 2.5 ml FLUSH ASDIRECTED PRN PRN Reason: Keep Vein Open Discontinued Medications Amlodipine Besylate (Norvasc) 10 mg PO ONETIME ONE Stop: 07/09/20 14:38 Last Admin: 07/09/20 14:51 Dose: 10 mg Documented by: Bisacodyl (Dulcolax) 10 mg RECTAL ONETIME ONE Stop: 07/09/20 10:16 Last Admin: 07/09/20 12:10 Dose: 10 mg Documented by: Fentanyl (Sublimaze) Confirm Administered Dose 250 mcg .ROUTE .STK-MED ONE Stop: 07/10/20 13:19 Fentanyl (Sublimaze) 50 mcg IVPUSH Q5M PRN PRN Reason: Pain Fentanyl (Sublimaze) Confirm Administered Dose 250 mcg .ROUTE .STK-MED ONE Stop: 07/10/20 14:33 Glycopyrrolate (Robinul) Confirm Administered Dose 0.2 mg .ROUTE .STK-MED ONE Stop: 07/10/20 13:20 Hydrochlorothiazide (Hydrochlorothiazide) 12.5 mg PO ONETIME ONE Stop: 07/09/20 14:37 Last Admin: 07/09/20 14:51 Dose: 12.5 mg Documented by: Lactated Ringer's (Ringers, Lactated) 1,000 mls @ 999 mls/hr IV .BOLUS ONE Stop: 07/09/20 06:22 Last Admin: 07/09/20 05:28 Dose: 999 mls/hr Documented by: Lactated Ringer's (Ringers, Lactated) 1,000 mls @ 125 mls/hr IV ASDIRECTED DUC Last Admin: 07/09/20 07:30 Dose: 125 mls/hr Documented by: Iopamidol (Isovue Multipack-370 (76%)) 100 ml IVPUSH ONETIME STA Stop: 07/09/20 06:14 Last Admin: 07/09/20 06:14 Dose: 100 ml Documented by: Iopamidol (Isovue Multipack-370 (76%)) 100 ml IVPUSH ONETIME ONE Stop: 07/10/20 09:33 Last Admin: 07/10/20 09:33 Dose: 100 ml Documented by: Ketorolac Tromethamine (Toradol) Confirm Administered Dose 30 mg .ROUTE .STK-MED ONE Stop: 07/10/20 13:20 Lidocaine (Xylocaine-Mpf 2%) Confirm Administered Dose 5 ml .ROUTE .STK-MED ONE Stop: 07/10/20 13:20 Midazolam HCl (Versed 1 Mg/Ml) Confirm Administered Dose 2 mg .ROUTE .STK-MED ONE Stop: 07/10/20 13:19 Octyl Cyanoacrylate (Dermabond Advance) Confirm Administered Dose 1 applic .ROUTE .STK-MED ONE Stop: 07/10/20 14:57 Ondansetron HCl (Zofran) 4 mg IVPUSH ONETIME ONE Stop: 07/09/20 08:37 Last Admin: 07/09/20 08:43 Dose: 4 mg Documented by: Ondansetron HCl (Zofran) 4 mg IVPUSH Q6H PRN PRN Reason: Nausea/Vomiting Ondansetron HCl (Zofran) Confirm Administered Dose 4 mg .ROUTE .STK-MED ONE Stop: 07/10/20 13:20 Propofol (Diprivan 20 Ml) Confirm Administered Dose 200 mg .ROUTE .STK-MED ONE Stop: 07/10/20 13:18 Rocuronium [place] (Rocuronium [place]) Confirm Administered Dose 50 mg .ROUTE .STK-MED ONE Stop: 07/10/20 13:20 Sugammadex Sodium (Bridion) Confirm Administered Dose 200 mg .ROUTE .STK-MED ONE Stop: 07/10/20 13:16 - Exam Wound/Incisions: Healing Well General: Alert, Oriented HEENT: Pupils Equal Neck: Supple Lungs: Clear to Auscultation, Normal Respiratory Effort Cardiovascular: Regular Rate, Regular Rhythm GI/Abdominal Exam: Normal Bowel Sounds, Soft, Non-Tender, No Organomegaly, No Distention, No Abnormal Bruit, No Mass, Pelvis Stable Extremities: Normal Inspection, Normal Range of Motion, Non-Tender, No Pedal E chyna, Normal Capillary Refill Skin: Warm, Dry, Intact Neurological: No New Focal Deficit Psy/Mental Status: Alert, Normal Affect, Normal Mood Sepsis Event Note - Evaluation Sepsis Screening Result: No Definite Risk - Focused Exam Vital Signs: Vital Signs Temp Pulse Resp BP BP Pulse Ox 07/11/20 08:36 132/76 07/11/20 08:35 96 07/11/20 08:00 36.7 C 97 20 132/76 86 L 07/11/20 04:42 36.7 C 98 18 147/94 H 95 07/10/20 23:58 36.6 C 88 18 160/96 H 99 - Problem List Review Problem List Initiated/Reviewed/Updated: Yes - My Orders Last 24 Hours: Active Orders 24 hr Category Date Time Status Patient Status [ADT] Routine ADT 07/10/20 15:04 Active Overnight Pulse Oximetry [RC] Click to Edit Care 07/10/20 15:49 Active Oxygen Therapy [RC] ASDIRECTED Care 07/10/20 15:49 Active Regular Diet [DIET] Diet 07/11/20 Breakfast Active Acetaminophen [Ofirmev 1000 mg/100 ml] 1,000 mg Med 07/10/20 13:30 Active Premix Bag 1 bag IV Q6H Resuscitation Status Routine Resus Stat 07/10/20 15:04 Ordered Medication Orders Amlodipine Besylate (Norvasc) 10 mg PO DAILY [facility] Last Admin: 07/11/20 08:36 Dose: 10 mg Documented by: [id number] Admin: 07/10/20 08:31 Dose: 10 mg Documented by: [id number] Hydrochlorothiazide (Hydrochlorothiazide) 12.5 mg PO DAILY [facility] Last Admin: 07/11/20 08:36 Dose: 12.5 mg Documented by: [id number] Admin: 07/10/20 08:32 Dose: 12.5 mg Documented by: [id number] Lactated Ringer's (Ringers, Lactated) 1,000 mls @ 150 mls/hr IV Q6H [facility] Last Admin: 07/11/20 04:24 Dose: 150 mls/hr Documented by: Infusion: 07/11/20 04:24 Dose: 150 mls/hr Documented by: Admin: 07/10/20 22:10 Dose: 150 mls/hr Documented by: Infusion: 07/10/20 19:45 Dose: 150 mls/hr Documented by: Admin: 07/10/20 17:14 Dose: Not Given Documented by: [id number] Admin: 07/10/20 13:04 Dose: 150 mls/hr Documented by: [id number] Infusion: 07/10/20 11:45 Dose: 150 mls/hr Documented by: [id number] Admin: 07/10/20 10:43 Dose: Not Given Documented by: Admin: 07/10/20 05:04 Dose: 150 mls/hr Documented by: Infusion: 07/10/20 04:16 Dose: 150 mls/hr Documented by: Admin: 07/10/20 00:51 Dose: Not Given Documented by: Admin: 07/09/20 21:35 Dose: 150 mls/hr Documented by: Infusion: 07/09/20 21:31 Dose: 150 mls/hr Documented by: Admin: 07/09/20 14:50 Dose: 150 mls/hr Documented by: Infusion: 07/09/20 14:50 Dose: 150 mls/hr Documented by: Admin: 07/09/20 12:11 Dose: 150 mls/hr Documented by: [email or web address] Acetaminophen 1,000 mg/ Premix 100 mls @ 400 mls/hr IV Q6H PRN PRN Reason: Pain Metformin HCl (Glucophage Xr) 500 mg PO BID DUC Last Admin: 07/11/20 08:36 Dose: 500 mg Documented by: [id number] Admin: 07/10/20 20:36 Dose: 500 mg Documented by: Admin: 07/10/20 08:31 Dose: 500 mg Documented by: [id number] Admin: 07/09/20 21:31 Dose: 500 mg Documented by: [email or web address] Morphine Sulfate (Morphine) 5 mg IVPUSH Q6H PRN PRN Reason: Pain Last Admin: 07/10/20 08:32 Dose: 5 mg Documented by: [id number] Admin: 07/09/20 20:59 Dose: 5 mg Documented by: Admin: 07/09/20 12:05 Dose: 5 mg Documented by: [id number] Ondansetron HCl (Zofran) 4 mg IVPUSH Q4H PRN PRN Reason: Nausea/Vomiting Sodium Chloride (Saline Flush) 10 ml FLUSH ASDIRECTED PRN PRN Reason: Keep Vein Open Sodium Chloride (Saline Flush) 2.5 ml FLUSH ASDIRECTED PRN PRN Reason: Keep Vein Open - Assessment Assessment (Free Text/Narrative):: Abdomen soft bowel sounds present. Norris passing gas and she have a bowel movement
--- NOTE | 2020-07-11 11:32 | PCM.DCSUM1 ---
Discharge Summary - Hospital Course Diagnosis: Stroke: No - Discharge Data Discharge Date: 07/11/20 Discharge Disposition: Home, Self-Care 01 Condition: Fair - Referral to Home Health Primary Care Physician: PCP None - Patient Summary/Data Operative Procedure(s) Performed: Dignostic laparascopy - Patient Instructions Diet: Usual Diet as Tolerated Activity: As Tolerated Driving: Do Not Drive Showering/Bathing: May Shower - Discharge Plan *PRESCRIPTION DRUG MONITORING PROGRAM REVIEWED*: Not Applicable *COPY OF PRESCRIPTION DRUG MONITORING REPORT IN PATIENT ERIKA: Not Applicable Home Medications: Home Meds amLODIPine [Norvasc] 10 mg PO QAM 07/04/20 [History] hydroCHLOROthiazide [Hydrochlorothiazide] 12.5 mg PO QAM 07/04/20 [History] metFORMIN [Glucophage XR] 500 mg PO BID 07/04/20 [History] Referrals: Rosalio Trevino MD [Physician] - - Discharge Summary/Plan Comment DC Time >30 min.: Yes - General Info Date of Service: 07/11/20 Functional Status: Reports: Pain Controlled - Review of Systems General: Reports: No Symptoms HEENT: Reports: No Symptoms Pulmonary: Reports: No Symptoms Cardiovascular: Reports: No Symptoms Gastrointestinal: Reports: No Symptoms Genitourinary: Reports: No Symptoms Musculoskeletal: Reports: No Symptoms Skin: Reports: No Symptoms Neurological: Reports: No Symptoms Psychiatric: Reports: No Symptoms - Patient Data Vitals - Most Recent: Last Vital Signs Temp 36.7 C 07/11/20 08:00 Pulse 97 07/11/20 08:00 Resp 20 07/11/20 08:00 BP 132/76 07/11/20 08:36 Pulse Ox 96 07/11/20 08:35 Weight - Most Recent: 120.656 kg I&O - Last 24 hours: Intake & Output 07/10/20 07/11/20 07/11/20 22:59 06:59 14:59 Intake Total 2928 1785 880 Output Total 1650 2500 Balance 1278 -715 880 Lab Results - Last 24 hrs: Laboratory Results - last 24 hr 07/10/20 07/11/20 Range/Units 13:09 05:50 POC Glucose 96 (60-110) mg/dL Urine HCG, Qual NEGATIVE (NEGATIVE) Med Orders - Current: Current Medications Amlodipine Besylate (Norvasc) 10 mg PO DAILY DUC Last Admin: 07/11/20 08:36 Dose: 10 mg Documented by: Hydrochlorothiazide (Hydrochlorothiazide) 12.5 mg PO DAILY [facility] Last Admin: 07/11/20 08:36 Dose: 12.5 mg Documented by: Lactated Ringer's (Ringers, Lactated) 1,000 mls @ 150 mls/hr IV Q6H [facility] Last Admin: 07/11/20 04:24 Dose: 150 mls/hr Documented by: Acetaminophen 1,000 mg/ Premix 100 mls @ 400 mls/hr IV Q6H PRN PRN Reason: Pain Metformin HCl (Glucophage Xr) 500 mg PO BID [facility] Last Admin: 07/11/20 08:36 Dose: 500 mg Documented by: Morphine Sulfate (Morphine) 5 mg IVPUSH Q6H PRN PRN Reason: Pain Last Admin: 07/10/20 08:32 Dose: 5 mg Documented by: Ondansetron HCl (Zofran) 4 mg IVPUSH Q4H PRN PRN Reason: Nausea/Vomiting Sodium Chloride (Saline Flush) 10 ml FLUSH ASDIRECTED PRN PRN Reason: Keep Vein Open Sodium Chloride (Saline Flush) 2.5 ml FLUSH ASDIRECTED PRN PRN Reason: Keep Vein Open Discontinued Medications Amlodipine Besylate (Norvasc) 10 mg PO ONETIME ONE Stop: 07/09/20 14:38 Last Admin: 07/09/20 14:51 Dose: 10 mg Documented by: Bisacodyl (Dulcolax) 10 mg RECTAL ONETIME ONE Stop: 07/09/20 10:16 Last Admin: 07/09/20 12:10 Dose: 10 mg Documented by: Fentanyl (Sublimaze) Confirm Administered Dose 250 mcg .ROUTE .STK-MED ONE Stop: 07/10/20 13:19 Fentanyl (Sublimaze) 50 mcg IVPUSH Q5M PRN PRN Reason: Pain Fentanyl (Sublimaze) Confirm Administered Dose 250 mcg .ROUTE .STK-MED ONE Stop: 07/10/20 14:33 Glycopyrrolate (Robinul) Confirm Administered Dose 0.2 mg .ROUTE .STK-MED ONE Stop: 07/10/20 13:20 Hydrochlorothiazide (Hydrochlorothiazide) 12.5 mg PO ONETIME ONE Stop: 07/09/20 14:37 Last Admin: 07/09/20 14:51 Dose: 12.5 mg Documented by: Lactated Ringer's (Ringers, Lactated) 1,000 mls @ 999 mls/hr IV .BOLUS ONE Stop: 07/09/20 06:22 Last Admin: 07/09/20 05:28 Dose: 999 mls/hr Documented by: Lactated Ringer's (Ringers, Lactated) 1,000 mls @ 125 mls/hr IV ASDIRECTED DUC Last Admin: 07/09/20 07:30 Dose: 125 mls/hr Documented by: Iopamidol (Isovue Multipack-370 (76%)) 100 ml IVPUSH ONETIME STA Stop: 07/09/20 06:14 Last Admin: 07/09/20 06:14 Dose: 100 ml Documented by: Iopamidol (Isovue Multipack-370 (76%)) 100 ml IVPUSH ONETIME ONE Stop: 07/10/20 09:33 Last Admin: 07/10/20 09:33 Dose: 100 ml Documented by: Ketorolac Tromethamine (Toradol) Confirm Administered Dose 30 mg .ROUTE .STK-MED ONE Stop: 07/10/20 13:20 Lidocaine (Xylocaine-Mpf 2%) Confirm Administered Dose 5 ml .ROUTE .STK-MED ONE Stop: 07/10/20 13:20 Midazolam HCl (Versed 1 Mg/Ml) Confirm Administered Dose 2 mg .ROUTE .STK-MED ONE Stop: 07/10/20 13:19 Octyl Cyanoacrylate (Dermabond Advance) Confirm Administered Dose 1 applic .ROUTE .STK-MED ONE Stop: 07/10/20 14:57 Ondansetron HCl (Zofran) 4 mg IVPUSH ONETIME ONE Stop: 07/09/20 08:37 Last Admin: 07/09/20 08:43 Dose: 4 mg Documented by: Ondansetron HCl (Zofran) 4 mg IVPUSH Q6H PRN PRN Reason: Nausea/Vomiting Ondansetron HCl (Zofran) Confirm Administered Dose 4 mg .ROUTE .STK-MED ONE Stop: 07/10/20 13:20 Propofol (Diprivan 20 Ml) Confirm Administered Dose 200 mg .ROUTE .STK-MED ONE Stop: 07/10/20 13:18 Rocuronium [place] (Rocuronium [place]) Confirm Administered Dose 50 mg .ROUTE .STK-MED ONE Stop: 07/10/20 13:20 Sugammadex Sodium (Bridion) Confirm Administered Dose 200 mg .ROUTE .STK-MED ONE Stop: 07/10/20 13:16 - Exam General: Reports: Alert, Oriented HEENT: Reports: Pupils Equal, Pupils Reactive, EOMI, Mucous Membr. Moist/[place] Neck: Reports: Supple Lungs: Reports: Clear to Auscultation, Normal Respiratory Effort Cardiovascular: Reports: Regular Rate, Regular Rhythm GI/Abdominal Exam: Normal Bowel Sounds, Soft, Non-Tender, No Organomegaly, No Distention, No Abnormal Bruit, No Mass, Pelvis Stable (Female) Exam: Normal External Exam, Normal Speculum Exam, Normal Bimanual Exam Rectal (Female) Exam: Normal Exam, Normal Rectal Tone Back Exam: Reports: Normal Inspection, Full Range of Motion Extremities: Normal Inspection, Normal Range of Motion, Non-Tender, No Pedal Edema, Normal Capillary Refill Skin: Reports: Warm, Dry, Intact Wound/Incisions: Reports: Healing Well Neurological: Reports: No New Focal Deficit Psy/Mental Status: Reports: Alert, Normal Affect, Normal Mood
--- NOTE | 2020-07-11 17:33 | OR ---
SURGEON: Rosalio Trevino MD DATE OF PROCEDURE: 07/10/2020 PREOPERATIVE DIAGNOSIS: Small bowel obstruction. POSTOPERATIVE DIAGNOSIS: Small bowel obstruction. OPERATIONS PERFORMED: Multiple-puncture diagnostic laparoscopy releasing small bowel that was partially prolapsed in the laparoscopic incision. PRIMARY SURGEON: Rosalio Trevino MD FIELD EXAMINER: OR tech. ANESTHESIA: General endotracheal, Mr. Mak Holt. ESTIMATED BLOOD LOSS: Less than 50 mL. COMPLICATIONS: None. FINDINGS: Partially small bowel obstruction is prolapsed in the 10/12 incision of her previous diagnostic laparoscopy, which was done three days ago. INDICATIONS FOR SURGERY: This patient is status post diagnostic laparoscopy with left salpingo- oophorectomy three days ago. She admitted through the emergency room yesterday with clinical and radiologic sign of a small bowel obstruction and there was clearly a small loop of bowel partially prolapsed in the laparoscopic incision. I tried to manage it expectantly, hoping that it would release by itself; however, the patient did not, and she continued to have the symptoms. So a decision is made to release it manually and to do diagnostic laparoscopy to make sure that the health of the bowel is okay and the incision is closed. PROCEDURE IN DETAIL: The patient was brought to the OR, properly identified, and after adequate level of anesthesia, the patient was placed in lithotomy position with an access to the abdomen and the vagina. The patient was prepped and draped in sterile fashion as usual. Shaw catheter placed in the bladder for drainage and the operation was started. Operation started by exploring the 10/12 trocar laparoscopic incision in the left iliac fossa. The skin was opened and then the subcutaneous tissue was dissected manually, and I was able to feel the small loop of the intestine and reduced it without any problem, and after reducing it, I placed my finger in the peritoneal cavity and felt around the opening of the laparoscopic incision, there was no evidence of further adherence of the bowel to that area. So I went ahead and proceeded by closing the laparoscopic incision with 0 Vicryl, first we closed the fascia and then the subcuticular tissue and then the skin. Next step, I proceeded to open the 5 mm trocar beneath the umbilicus on the left side and 5 mm trocar was easily passed on both sides and then the abdomen was inflated and diagnostic laparoscopy was performed. The health of the intestine was completely healthy. There was no evidence of any compromising of the intestine. I visualized the large laparoscopic opening from the peritoneal cavity and it was ascertained and confirmed that it was totally closed, so hopefully no further prolapsing of the intestine would happen. Then, satisfied with this procedure, the procedure was ended. The abdomen was deflated and the laparoscopic incision closed in layer. Instrument and sponge count was correct. The patient tolerated the procedure well, went to recovery room in stable general condition. RICHARD / MAURIZIO /[id number]
== END 2020-07-11 12:05 | disposition home or self-care (01) ==
LOC: MW.ED 04:35 → MW.MS 06:59
PROVIDERS: ADMIT Obstetrics & Gynecology; ATTEND Obstetrics & Gynecology
DX: K91.30 Postprocedural intestinal obstruction, unspecified as to partial versus complete (principal); E11.9 Type 2 diabetes mellitus without complications; E66.9 Obesity, unspecified; I10 Essential (primary) hypertension; Z79.84 Long term (current) use of oral hypoglycemic drugs; Z01.812 Encounter for preprocedural laboratory examination; Z20.828 Contact with and (suspected) exposure to other viral communicable diseases; Z79.899 Other long term (current) drug therapy
CPT/HCPCS: 36415; 44180; 74177; 80053; 81001; 81025; 82962; 83690; 85025; 87635; A9270; J1885; J2250; J2270; J2405; J2704; J3010; J3490; J7120; Q9967; 00840; 96374; 99283; 99285-25; U0002

== ENCOUNTER 2020-11-13 11:24 | Emergency (ER) | payer OTHER, SELFPAY ==
[2020-11-13] MEDS ORDERED: Lidocaine 1% PF 2 ML SDV INJECT ONE (11:56)
[2020-11-13] MEDS ORDERED: Diphtheria,Pertussis(Acell),Tetanus Vaccine 0.5 ML Syringe IM ONE (11:58)
--- NOTE | 2020-11-13 12:00 | EDM.PDOC ---
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 The patient is a 30-year-old female who presents to the emergency room after cutting her right third finger around midnight last night on a broken glass. The patient cleaned the finger and wrapped it and then was able to finally get to the ER just now. She is unsure of her tetanus status and is 4 months . Patient denies any fever, chills, headache, change in vision, syncope or near syncope. Denies any chest pain, back pain, shortness of breath or cough. Denies any abdominal pain, nausea, vomiting, diarrhea, constipation or dysuria. Has not noted any blood in urine or stool. Patient has been eating and drinking appropriately. Review of systems: As per history of present illness and below otherwise all systems reviewed and negative. Past medical history: As per history of present illness and as reviewed below otherwise noncontributory. Surgical history: As per history of present illness and as reviewed below otherwise noncontributory. Social history: See social history for further information Family history: As per history of present illness and as reviewed below otherwise noncontributory. Physical exam: General: Well developed and well nourished. Alert and orientated x 3. Nontoxic in appearance and in no acute distress. Vital signs are stable and have been reviewed by me. Nursing notes were reviewed. HEENT: Atraumatic, normocephalic, pupils equal and reactive bilaterally, negative for conjunctival pallor or scleral icterus, mucous membranes moist, TMs normal bilaterally, throat clear, neck supple, nontender, trachea midline. No drooling or trismus noted. No meningeal signs. No hot potato voice noted. Lungs: Clear to auscultation bilaterally. No wheezes, rales, or rhonchi. Chest nontender. Normal work of breathing, no accessory muscles used. Heart: S1S2, regular rate and rhythm without overt murmur, gallops, or rubs. No JVD. No peripheral edema Abdomen: Soft, nondistended, nontender. Normoactive bowel sounds. Negative for m asses or costovertebral tenderness.. Skin: right third finger dumont side medial phalange 3 cm "V" shaped laceration without active bleeding. The skin is warm, dry. No lesions or rashes noted. Hematologic: No petechiae or purpra. Mucosa appropriate color and normal nail bed color and refill. Extremities: Atraumatic, moves all extremities per self without difficulty or deficits, negative for cords or calf pain. Neurovascular unremarkable. Neuro: Awake, alert, oriented. Cranial nerves II through XII unremarkable. Cerebellum unremarkable. Motor and sensory unremarkable throughout. Exam nonfocal. Psychiatric: Mood and affect are appropriate. Normal thought process. Answering questions appropriately. Notes: *This patient was seen and evaluated during the 2019 SARS-CoV-2 novel coronavirus pandemic period. Community viral transmission is ongoing at time of this encounter and the emergency department is operating under pandemic response procedures. As stated above the patient came in for repair of a laceration. See procedure note. The patient tolerated the laceration will. The Ziippi tablet was at the bedside for questions. I have instructed the patient on care for suture care. I will discharge the patient with those instructions. I have talked with the patient about today's findings, in addition to providing specific details for plan of care. Reassessment at the time of disposition demonstrates that the patient is in no acute distress. The patient is stable for discharge, counseling was provided and we discussed in great detail signs and symptoms that would prompt them to return to the Emergency Department. Medication, follow up and supportive care measures were reviewed and discussed. Voices understanding and is agreeable to plan of care. Denies any further questions or concerns at this time. Therapeutics: Lidocaine 1% Impression: Laceration Plan: 1. Keep the area clean and dry. Continue to monitor for signs of infection such as increased redness and drainage. Sutures to be removed in 7-10 days. 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 2. Tylenol and/or ibuprofen as needed for pain management. 3. Please follow-up with your primary care provider in the next 1-2 days. Return to the ED as needed and as discussed. Definitive disposition and diagnosis as appropriate pending reevaluation and review of above. - Related Data Allergies Allergy/AdvReac Type Severity Reaction Status Date / Time No Known Allergies Allergy Verified 11/13/20 12:01 Home Meds: Home Meds amLODIPine [Norvasc] 10 mg PO QAM 07/04/20 [History] hydroCHLOROthiazide [Hydrochlorothiazide] 12.5 mg PO QAM 07/04/20 [History] metFORMIN [Glucophage XR] 500 mg PO BID 07/04/20 [History] Past Medical History - Past Health History Medical/Surgical History: Denies Medical/Surgical History Cardiovascular History: Reports: Hypertension Other Cardiovascular History: just started on medication the end of May Respiratory History: Reports: None Other Respiratory History: says she snores Gastrointestinal History: Reports: None Genitourinary History: Reports: None 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, Musculoskeletal History: Reports: None Neurological History: Reports: None Psychiatric History: Reports: None Endocrine/Metabolic History: Reports: Diabetes, Type II, Obesity/BMI 30+ Other Endocrine/Metabolic History: recently had elevated Hgb A1C- started on Metformin Insulin Pump Model and Supplemental Manager: None Hematologic History: Reports: None Immunologic History: Reports: None Oncologic (Cancer) History: Reports: None Dermatologic History: Reports: None - Infectious Disease History Infectious Disease History: Reports: None - Past Surgical History Head Surgeries/Procedures: Reports: None GI Surgical History: Reports: Appendectomy Female Surgical History: Reports: Section Social & Family History - Family History Family Medical History: No Pertinent Family History - Caffeine Use Caffeine Use: Reports: None ED ROS GENERAL - Review of Systems Review Of Systems: Comprehensive ROS is negative, except as noted in HPI. ED EXAM, SKIN/RASH Exam: See Below (See dictation) ED SKIN PROCEDURES - Laceration/Wound Repair Right Digit - 3rd (Middle) Appearance: Subcutaneous Distal NVT: Neuro & Vascular Intact, No Tendon Injury Anesthetic Type: Local Local Anesthesia - Lidocaine (Xylocaine): 1% Plain Local Anesthetic Volume: 3cc Skin Prep: Chlorhexidine (Hibiciens) Saline Irrigation (cc's): 200 Exploration/Debridement/Repair: Wound Explored, In a Bloodless Field, No Foreign Material Found Closed with: Sutures Lac/Wound length In cm: 3 Suture Size: 3-0 # of Sutures: 4 Course - Vital Signs Last Recorded V/S: Last Vital Signs Temp 96.9 F 11/13/20 12:03 Pulse 93 11/13/20 13:17 Resp 16 11/13/20 13:17 BP 127/70 11/13/20 13:17 Pulse Ox 97 11/13/20 13:17 - Orders/Labs/Meds Meds: Medications Discontinued Medications Generic Name Dose Route Start Last Admin Trade Name Moisés PRN Reason Stop Dose Admin Bacitracin 1 dose 11/13/20 12:49 11/13/20 13:12 Bacitracin Oint 1 Gm U/D Packet TOP 11/13/20 12:50 1 dose ONETIME ONE Administration Diphtheria/Tetanus/Acell Pertussis 0.5 ml 11/13/20 11:58 11/13/20 12:23 Diphtheria,Pertussis(Acell),Tetanus Vaccine 0.5 Ml Syringe IM 11/13/20 11:59 0.5 ml .ONCE ONE Administration Lidocaine HCl 2 ml 11/13/20 11:56 11/13/20 12:23 Lidocaine 1% Pf 2 Ml Sdv INJECT 11/13/20 11:57 2 ml ONETIME ONE Administration Departure - Departure Time of Disposition: 12:47 Disposition: Home, Self-Care 01 Condition: Good Clinical Impression: Laceration - Discharge Information *PRESCRIPTION DRUG MONITORING PROGRAM REVIEWED*: Not Applicable *COPY OF PRESCRIPTION DRUG MONITORING REPORT IN PATIENT ERIKA: Not Applicable Instructions: Laceration Care, Adult Referrals: PCP,None [Primary Care Provider] - Forms: ED Department Discharge Additional Instructions: The following information is given to patients seen in the emergency department who are being discharged to home. This information is to outline your options for follow-up care. We provide all patients seen in our emergency department with a follow-up referral. The need for follow-up, as well as the timing and circumstances, are variable depending upon the specifics of your emergency department visit. If you don't have a primary care physician on staff, we will provide you with a referral. We always advise you to contact your personal physician following an emergency department visit to inform them of the circumstance of the visit and for follow-up with them and/or the need for any referrals to a consulting specialist. The emergency department will also refer you to a specialist when appropriate. This referral assures that you have the opportunity for follow-up care with a specialist. All of these measure are taken in an effort to provide you with optimal care, which includes your follow-up. Under all circumstances we always encourage you to contact your private tony calloway who remains a resource for coordinating your care. When calling for follow-up care, please make the office aware that this follow-up is from your recent emergency room visit. If for any reason you are refused follow-up, please contact the [facility] Emergency Department at and asked to speak to the emergency department charge nurse. [facility] - Primary [facility] [address] [place] [id number] [facility] [address] [place] [id number] Plan: 1. Keep the area clean and dry. Continue to monitor for signs of infection such as increased redness and drainage. Sutures to be removed in 7-10 days. 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 2. Tylenol and/or ibuprofen as needed for pain management. 3. Please follow-up with your primary care provider in the next 1-2 days. Return to the ED as needed and as discussed. Sepsis Event Note (ED) - Focused Exam Vital Signs: Vital Signs Temp Pulse Resp BP Pulse Ox 11/13/20 13:17 93 16 127/70 97 11/13/20 12:03 96.9 F 100 16 149/102 H 98
[2020-11-13] MEDS ORDERED: Bacitracin Oint 1 GM U/D Packet TOP ONE (12:49)
== END 2020-11-13 13:18 | disposition home or self-care (01) ==
LOC: MW.ED 11:24
DX: S61.212A Laceration without foreign body of right middle finger without damage to nail, initial encounter (principal); E11.9 Type 2 diabetes mellitus without complications; E66.9 Obesity, unspecified; Z23 Encounter for immunization; I10 Essential (primary) hypertension; W25.XXXA Contact with sharp glass, initial encounter
CPT/HCPCS: 12001; 12002; 90471; 90715; 99282-25; 99283

== ENCOUNTER 2020-11-18 23:51 | Emergency (ER) | payer OTHER, SELFPAY ==
[2020-11-19] MEDS ORDERED: Adenosine 6 MG/2 ML SDV ONE (00:02)
[2020-11-19] MEDS ORDERED: Sodium Chloride 0.9% 10 ML Syringe FLUSH PRN (00:04)
[2020-11-19] MEDS ORDERED: Sodium Chloride 0.9% 2.5 ML Syringe FLUSH PRN (00:04)
[2020-11-19] MEDS ORDERED: Adenosine 6 MG/2 ML SDV IVPUSH ONE (00:05)
[2020-11-19 00:33] LABS: BLOOD UREA NITROGEN,BUN 20 mg/dL (7.0-18.0); CARBON DIOXIDE,CO2 24.1 mmol/L (21.0-32.0); CHLORIDE,CL 101 mmol/L (98-107); GLUCOSE RANDOM 105 mg/dL (74-106); POTASSIUM,K 3.2 mmol/L (3.5-5.1); SODIUM,NA 137 mmol/L (136-145)
--- NOTE | 2020-11-19 00:40 | CR ---
INDICATION: Shortness of breath TECHNIQUE: Chest radiograph 1 view COMPARISON: 05/16/2019 FINDINGS: Severe degradation of image quality noted due to body habitus. Mediastinum: The mediastinum is normal in appearance. Gjnn-qc-yrcxgyxy cardiomegaly is noted without interval change. Lung: Both lungs are unremarkable in appearance with small lung volumes. No sign of pleural effusion seen. No pneumothorax is identified. Bone and Soft tissue: Unremarkable for age. IMPRESSION: 1. Ooyb-cf-crpcraly cardiomegaly is noted without interval change. Dictated by Berlin Mackey MD @ 11/19/2020 12:39:19 AM Dictated by: Berlin Mackey MD @ 11/19/2020 00:39:30 (Electronically Signed)
--- NOTE | 2020-11-19 00:55 | EDM.PDOC ---
ED HPI GENERAL MEDICAL PROBLEM - General Chief Complaint: Cardiovascular Problem Stated Complaint: TROUBLE BREATHING, CHEST PAIN Time Seen by Provider: 11/18/20 23:57 - History of Present Illness INITIAL COMMENTS - FREE TEXT/NARRATIVE: History of present illness: [] The patient was at work. Suddenly she got short of breath and had chest pain. She did not perceive her tachycardia. On arrival she is in SVT. Her heart rate is 190. Patient has never had this happen before. She is 4 months . Review of systems: As per history of present illness and below otherwise all systems reviewed and negative. Past medical history: As per history of present illness and as reviewed below otherwise noncontributory. Surgical history: As per history of present illness and as reviewed below otherwise noncontributory. Social history: No reported history of drug or alcohol abuse. Family history: As per history of present illness and as reviewed below otherwise noncontributory. Physical exam: Constitutional - well developed, well-nourished and in no acute distress HEENT - normocephalic, no evidence of trauma - external nose and mouth normal - no mass in neck and no JVD - mucosae moist EYES - full EOM, PERRL, no icterus - no evidence of inflammation, injection, or drainage Respiratory - no respiratory distress, equal bilateral expansion, lungs clear to auscultation and no abnormal lung sounds Cardiovascular - Regular Rhythm with S1 and S2 appreciated and no murmur, gallop or rub. GI - abdomen soft without distension or organomegaly - normal bowel sounds - no guard or rebound Musculoskeletal no gross deformity of long bones or joints - no tenderness, swelling or edema Neurologic - Alert and oriented times four - CN II-XII grossly intact - motor sensory and coordination symmetrically normal Psychiatric - appropriate mood and affect with normal thought content Hematologic - No petechiae or purpura - mucosa appropriate color and sclera not pale - normal nail bed color and refill Integument - no rash or evidence of trauma - normal turgor Diagnostics: [] Therapeutics: [] Impression: [] Plan: [] Definitive disposition and diagnosis as appropriate pending reevaluation and review of above. Left Upper Abdomen Pain Score (Numeric/FACES): 10 - Related Data Allergies Allergy/AdvReac Type Severity Reaction Status Date / Time No Known Allergies Allergy Verified 11/19/20 00:39 Home Meds: Home Meds amLODIPine [Norvasc] 10 mg PO QAM 07/04/20 [History] hydroCHLOROthiazide [Hydrochlorothiazide] 12.5 mg PO QAM 07/04/20 [History] metFORMIN [Glucophage XR] 500 mg PO BID 07/04/20 [History] Past Medical History - Past Health History Medical/Surgical History: Denies Medical/Surgical History Cardiovascular History: Reports: Hypertension Other Cardiovascular History: just started on medication the end of May Respiratory History: Reports: None Other Respiratory History: says she snores Gastrointestinal History: Reports: None Genitourinary History: Reports: None [employer] History: Reports: Fibroids, Musculoskeletal History: Reports: None Neurological History: Reports: None Psychiatric History: Reports: None Endocrine/Metabolic History: Reports: Diabetes, Type II, Obesity/BMI 30+ Other Endocrine/Metabolic History: recently had elevated Hgb A1C- started on Metformin Insulin Pump Model and Orthopedic Physical Therapist: None Hematologic History: Reports: None Immunologic History: Reports: None Oncologic (Cancer) History: Reports: None Dermatologic History: Reports: None - Infectious Disease History Infectious Disease History: Reports: None - Past Surgical History Head Surgeries/Procedures: Reports: None GI Surgical History: Reports: Appendectomy Female Surgical History: Reports: Section Social & Family History - Family History Family Medical History: No Pertinent Family History - Tobacco Use Tobacco Use Status *Q: Never Tobacco User Second Hand Smoke Exposure: No - Caffeine Use Caffeine Use: Reports: None - Recreational Drug Use Recreational Drug Use: No ED ROS GENERAL - Review of Systems Review Of Systems: Comprehensive ROS is negative, except as noted in HPI. ED EXAM, GENERAL - Physical Exam Exam: See Below Free Text/Narrative:: My physical exam is in the HPI #2 Interpretation EKG Interpretation Comments: EKG #2 at 1213 patient is converted to sinus tachycardia heart rate 110 MD 166 [place] third 21 QT duration 432 late transition to QRS in the precordium. Possible delta wave in aVF only. Impression no obvious WPW but the possibility is raised. Otherwise normal EKG Course - Vital Signs Text/Narrative:: The patient was in SVT. We set up a line with 2 ports. We placed adenosine 6 mg and flushed quickly and raised her arm. She converted to sinus rhythm. 4:59 AM the patient has an ultrasound done that shows 14-week 2-day with heart rate 160. Last Recorded V/S: Last Vital Signs Temp 36.9 C 11/19/20 00:31 Pulse 95 11/19/20 04:14 Resp 16 11/19/20 04:14 BP 144/86 H 11/19/20 04:14 Pulse Ox 97 11/19/20 04:14 - Orders/Labs/Meds Orders: Active Orders 24 hr Category Date Time Status EKG 12 Lead [EKG Documentation Completion] [RC] STAT Care 11/19/20 00:16 Active EKG Documentation Completion [RC] AM Care 11/19/20 00:04 Active OB 1st Tri Sgl 1st Gest [US] Stat Exams 11/19/20 04:05 Ordered Sodium Chloride 0.9% [Saline Flush] Med 11/19/20 00:04 Active 10 ml FLUSH ASDIRECTED PRN Sodium Chloride 0.9% [Saline Flush] Med 11/19/20 00:04 Active 2.5 ml FLUSH ASDIRECTED PRN Saline Lock Insert [OM.PC] Stat Oth 11/19/20 00:04 Ordered Medication Orders Sodium Chloride (Sodium Chloride 0.9% 10 Ml Syringe) 10 ml FLUSH ASDIRECTED PRN PRN Reason: Keep Vein Open Last Admin: 11/19/20 00:21 Dose: 10 ml Documented by: AJAY Sodium Chloride (Sodium Chloride 0.9% 2.5 Ml Syringe) 2.5 ml FLUSH ASDIRECTED PRN PRN Reason: Keep Vein Open Last Admin: 11/19/20 00:21 Dose: 2.5 ml Documented by: AJAY Labs: Laboratory Tests 11/18/20 11/19/20 11/19/20 Range/Units 20:00 00:00 00:00 WBC 5.59 (4.0-11.0) K/uL RBC 4.22 L (4.30-5.90) M/uL Hgb 11.2 L (12.0-16.0) g/dL Hct 33.7 L (36.0-46.0) % MCV 79.9 L (80.0-98.0) fL MCH 26.5 L (27.0-32.0) pg MCHC 33.2 (31.0-37.0) g/dL RDW Std Deviation 37.3 (28.0-62.0) fl RDW Coeff of Zoila 13 (11.0-15.0) % Plt Count 170 (150-400) K/uL MPV 13.00 H (7.40-12.00) fL Neut % (Auto) 49.9 (48.0-80.0) % Lymph % (Auto) 35.6 (16.0-40.0) % Meagher % (Auto) 10.2 (0.0-15.0) % Eos % (Auto) 4.1 (0.0-7.0) % Baso % (Auto) 0.2 (0.0-1.5) % Neut # (Auto) 2.8 (1.4-5.7) K/uL Lymph # (Auto) 2.0 (0.6-2.4) K/uL Meagher # (Auto) 0.6 (0.0-0.8) K/uL Eos # (Auto) 0.2 (0.0-0.7) K/uL Baso # (Auto) 0.0 (0.0-0.1) K/uL D-Dimer, Quantitative (0.0-0.50) mg/L FEU Sodium 137 (136-145) mmol/L Potassium 3.2 L (3.5-5.1) mmol/L Chloride 101 (98-107) mmol/L Carbon Dioxide 24.1 (21.0-32.0) mmol/L BUN 20 H (7.0-18.0) mg/dL Creatinine 0.9 (0.6-1.0) mg/dL Est Cr Clr Drug Dosing TNP Estimated GFR (MDRD) > 60.0 ml/min Glucose 105 (74-106) mg/dL Calcium 9.2 (8.5-10.1) mg/dL Magnesium 1.7 L (1.8-2.4) mg/dL Total Bilirubin 0.2 (0.2-1.0) mg/dL AST 19 (15-37) IU/L ALT 27 (14-63) IU/L Alkaline Phosphatase 66 (46-116) U/L Troponin I (0.000-0.056) ng/mL Total Protein 8.3 H (6.4-8.2) g/dL Albumin 3.4 (3.4-5.0) g/dL Globulin 4.9 H (2.6-4.0) g/dL Albumin/Globulin Ratio 0.7 L (0.9-1.6) TSH 3rd Generation 1.00 (0.36-3.74) uIU/mL HCG, Quant 14124.0 mIU/mL Urine Color Urine Appearance Urine pH (5.0-8.0) Ur Specific Graham (1.001-1.035) Urine Protein (NEGATIVE) mg/dL Urine Glucose (UA) (NEGATIVE) mg/dL Urine Ketones (NEGATIVE) mg/dL Urine Occult Blood (NEGATIVE) Urine Nitrite (NEGATIVE) Urine Bilirubin (NEGATIVE) Urine Urobilinogen (<2.0) EU/dL Ur Leukocyte Esterase (NEGATIVE) 11/19/20 11/19/20 11/19/20 Range/Units 00:00 00:30 01:20 WBC (4.0-11.0) K/uL RBC (4.30-5.90) M/uL Hgb (12.0-16.0) g/dL Hct (36.0-46.0) % MCV (80.0-98.0) fL MCH (27.0-32.0) pg MCHC (31.0-37.0) g/dL RDW Std Deviation (28.0-62.0) fl RDW Coeff of Zoila (11.0-15.0) % Plt Count (150-400) K/uL MPV (7.40-12.00) fL Neut % (Auto) (48.0-80.0) % Lymph % (Auto) (16.0-40.0) % Meagher % (Auto) (0.0-15.0) % Eos % (Auto) (0.0-7.0) % Baso % (Auto) (0.0-1.5) % Neut # (Auto) (1.4-5.7) K/uL Lymph # (Auto) (0.6-2.4) K/uL Meagher # (Auto) (0.0-0.8) K/uL Eos # (Auto) (0.0-0.7) K/uL Baso # (Auto) (0.0-0.1) K/uL D-Dimer, Quantitative 1.33 H (0.0-0.50) mg/L FEU Sodium (136-145) mmol/L Potassium (3.5-5.1) mmol/L Chloride (98-107) mmol/L Carbon Dioxide (21.0-32.0) mmol/L BUN (7.0-18.0) mg/dL Creatinine (0.6-1.0) mg/dL Est Cr Clr Drug Dosing Estimated GFR (MDRD) ml/min Glucose (74-106) mg/dL Calcium (8.5-10.1) mg/dL Magnesium (1.8-2.4) mg/dL Total Bilirubin (0.2-1.0) mg/dL AST (15-37) IU/L ALT (14-63) IU/L Alkaline Phosphatase (46-116) U/L Troponin I <0.050 (0.000-0.056) ng/mL Total Protein (6.4-8.2) g/dL Albumin (3.4-5.0) g/dL Globulin (2.6-4.0) g/dL Albumin/Globulin Ratio (0.9-1.6) TSH 3rd Generation (0.36-3.74) uIU/mL HCG, Quant mIU/mL Urine Color YELLOW Urine Appearance CLEAR Urine pH 6.0 (5.0-8.0) Ur Specific Graham 1.015 (1.001-1.035) Urine Protein NEGATIVE (NEGATIVE) mg/dL Urine Glucose (UA) NEGATIVE (NEGATIVE) mg/dL Urine Ketones NEGATIVE (NEGATIVE) mg/dL Urine Occult Blood NEGATIVE (NEGATIVE) Urine Nitrite NEGATIVE (NEGATIVE) Urine Bilirubin NEGATIVE (NEGATIVE) Urine Urobilinogen 0.2 (<2.0) EU/dL Ur Leukocyte Esterase NEGATIVE (NEGATIVE) Meds: Medications Generic Name Dose Route Start Last Admin Trade Name Freq PRN Reason Stop Dose Admin Sodium Chloride 10 ml 11/19/20 00:04 11/19/20 00:21 Sodium Chloride 0.9% 10 Ml Syringe FLUSH 10 ml ASDIRECTED PRN Administration Keep Vein Open Sodium Chloride 2.5 ml 11/19/20 00:04 11/19/20 00:21 Sodium Chloride 0.9% 2.5 Ml Syringe FLUSH 2.5 ml ASDIRECTED PRN Administration Keep Vein Open Discontinued Medications Generic Name Dose Route Start Last Admin Trade Name Freq PRN Reason Stop Dose Admin Adenosine Confirm 11/19/20 00:02 11/19/20 00:22 Adenosine 6 Mg/2 Ml Sdv Administered 11/19/20 00:03 Not Given Dose 6 mg .ROUTE .STK-MED ONE Adenosine 6 mg 11/19/20 00:05 11/19/20 00:21 Adenosine 6 Mg/2 Ml Sdv IVPUSH 11/19/20 00:06 6 mg NOW ONE Administration Sodium Chloride 1,000 mls @ 999 mls/hr 11/19/20 02:48 11/19/20 02:56 Normal Saline IV 11/19/20 03:48 999 mls/hr .BOLUS ONE Administration Departure - Departure Time of Disposition: 04:59 Disposition: Home, Self-Care 01 Clinical Impression: SVT (supraventricular tachycardia), IUP (intrauterine ), incidental Instructions: Supraventricular Tachycardia, Adult, [id number] Referrals: PCP,None [Primary Care Provider] - Forms: ED Department Discharge Additional Instructions: Need to make an appointment with cardiology so they can evaluate for possibility that you need medication to prevent further episodes of SVT. Need to make an appointment with obesity can have proper care [facility] - cardiology [address] [place] [address] [facility] [address] [place] [id number] [place] [address] The following information is given to patients seen in the emergency department who are being discharged to home. This information is to outline your options for follow-up care. We provide all patients seen in our emergency department with a follow-up referral. The need for follow-up, as well as the timing and circumstances, are variable depending upon the specifics of your emergency department visit. If you don't have a primary care physician on staff, we will provide you with a referral. We always advise you to contact your personal physician following an emergency department visit to inform them of the circumstance of the visit and for follow-up with them and/or the need for any referrals to a consulting specialist. The emergency department will also refer you to a specialist when appropriate. This referral assures that you have the opportunity for follow-up care with a specialist. All of these measure are taken in an effort to provide you with optimal care, which includes your follow-up. Under all circumstances we always encourage you to contact your private physician who remains a resource for coordinating your care. When calling for follow-up care, please make the office aware that this follow-up is from your recent emergency room visit. If for any reason you are refused follow-up, please contact the [facility] Emergency Department at and asked to speak to the emergency department charge nurse. Sepsis Event Note (ED) - Evaluation Sepsis Screening Result: No Definite Risk - Focused Exam Vital Signs: Vital Signs Temp Pulse Resp BP Pulse Ox 11/19/20 04:14 95 16 144/86 H 97 11/19/20 02:38 109 H 16 149/80 H 100 11/19/20 01:36 100 18 136/82 100 11/19/20 00:31 36.9 C 187 H 28 H 150/84 H 96 - My Orders Last 24 Hours: My Active Orders 11/19/20 00:04 EKG Documentation Completion [RC] AM Sodium Chloride 0.9% [Saline Flush] 10 ml FLUSH ASDIRECTED PRN Sodium Chloride 0.9% [Saline Flush] 2.5 ml FLUSH ASDIRECTED PRN Saline Lock Insert [OM.PC] Stat 11/19/20 00:16 EKG 12 Lead [EKG Documentation Completion] [RC] STAT 11/19/20 04:05 OB 1st Tri Sgl 1st Gest [US] Stat - Assessment/Plan Last 24 Hours: My Active Orders 11/19/20 00:04 EKG Documentation Completion [RC] AM Sodium Chloride 0.9% [Saline Flush] 10 ml FLUSH ASDIRECTED PRN Sodium Chloride 0.9% [Saline Flush] 2.5 ml FLUSH ASDIRECTED PRN Saline Lock Insert [OM.PC] Stat 11/19/20 00:16 EKG 12 Lead [EKG Documentation Completion] [RC] STAT 11/19/20 04:05 OB 1st Tri Sgl 1st Gest [US] Stat
[2020-11-19] MEDS ORDERED: Sodium Chloride 0.9% 1,000 ML IV ONE (02:48)
--- NOTE | 2020-11-19 05:57 | US ---
INDICATION: Unable to obtain heart tones. TECHNIQUE: Ultrasound OB pelvis transabdominal. Real time upton scale imaging of the pelvis was performed. COMPARISON: None FINDINGS: Sonographic imaging demonstrates a single living intrauterine gestation. The embryo demonstrates a regular cardiac rate measuring 161 beats per minute. Breech presentation. Anterior placenta. Biometry data: Estimated gestational age is 14 weeks 4 days. Estimated date of delivery is 05/16/2021. Estimated weight is 98 grams. BPD-2.7 cm-14 weeks 5 days HC-9.6 cm-14 weeks 3 days AC-8.5 cm-14 weeks 6 days FL-1.4 cm-14 weeks 2 days IMPRESSION: Single live IUP with cardiac rate of 161 beats per minute. Estimated gestational age 14 weeks 4 days. Dictated by Johnny Santana MD @ 11/19/2020 5:56:[address] Johnny Santana @ Nov 19 2020 5:56AM
== END 2020-11-19 05:15 | disposition home or self-care (01) ==
LOC: MW.ED 23:51
DX: I47.1 Supraventricular tachycardia (principal); Z33.1 Pregnant state, incidental; I10 Essential (primary) hypertension; E11.9 Type 2 diabetes mellitus without complications; E66.9 Obesity, unspecified
CPT/HCPCS: 36415; 71045; 76801; 80053; 81003; 83735; 84443; 84484; 84702; 85025; 85379; 93005; 96374; 99285; J0153; J7030; 93010; 99284

== ENCOUNTER 2021-04-27 19:52 | Inpatient (IN) | payer SELFPAY ==
[2021-04-27] MEDS ORDERED: Tranexamic Acid 1,000 MG in Sodium Chloride 0.9% 100 ML IV PRN (20:20)
[2021-04-27] MEDS ORDERED: Sodium Chloride 0.9% 20 ML SDV IV PRN (20:20)
[2021-04-27] MEDS ORDERED: Lidocaine 1% 50 ML MDV INJECT PRN (20:20)
[2021-04-27] MEDS ORDERED: Nalbuphine 10 MG/1 ML Vial IVPUSH PRN (20:20)
[2021-04-27] MEDS ORDERED: Carboprost Tromethamine 250 MCG/1 ML Amp IM PRN (20:20)
[2021-04-27] MEDS ORDERED: Sodium Chloride 0.9% 2.5 ML Syringe FLUSH PRN (20:20)
[2021-04-27] MEDS ORDERED: Butorphanol 1 MG/ML SDV IVPUSH PRN (20:20)
[2021-04-27] MEDS ORDERED: Ondansetron 4 MG/2 ML SDV IVPUSH PRN (20:20)
[2021-04-27] MEDS ORDERED: Misoprostol 200 MCG Tab PO PRN (20:20)
[2021-04-27] MEDS ORDERED: Methylergonovine 0.2 MG/1 ML Amp IM PRN (20:20)
[2021-04-27] MEDS ORDERED: Sodium Chloride 0.9% 10 ML Syringe FLUSH PRN (20:20)
[2021-04-27] MEDS ORDERED: Water For Irrigation,Sterile 1,000 ML Container IRR PRN (20:20)
[2021-04-27] MEDS ORDERED: Oxytocin/0.9 % Sodium Chloride 30 UNIT/500 ML BAG IV SCH (20:30)
[2021-04-27] MEDS ORDERED: Labetalol 100 MG Tab PO ONE (20:59)
[2021-04-27] MEDS ORDERED: Labetalol 100 MG/20 ML MDV IVPUSH ONE ×4 (21:00→22:35)
[2021-04-27] MEDS: Lactated Ringers 1,000 ML IV SCH (21:24)
[2021-04-27 21:48] LABS: BLOOD UREA NITROGEN,BUN 15 mg/dL (7.0-18.0)
[2021-04-27] MEDS: Labetalol 100 MG/20 ML MDV IVPUSH PRN (22:52)
[2021-04-27] MEDS ORDERED: hydrALAZINE 20 MG/ML SDV IVPUSH PRN (23:28)
[2021-04-28] MEDS: Labetalol 100 MG/20 ML MDV IVPUSH PRN ×3 (02:18→03:15)
[2021-04-28] MEDS: Lactated Ringers 1,000 ML IV SCH (07:41)
--- NOTE | 2021-04-28 08:41 | PCM.LDHP ---
L&D History of Present Illness - General Date of Service: 04/28/21 Admit Problem/Dx: Patient Status Order with Admit Dx/Problem 04/27/21 20:21 Patient Status [ADT] Routine Admission Diagnosis/Problem Admission Diagnosis/Problem Source of Information: Patient History Limitations: Reports: No Limitations, Physical Impairment, Other - History of Present Illness Improves with: Reports: None Worsens with: Reports: None Associated Symptoms: Reports: N - Related Data Allergies/Adverse Reactions: Allergies Allergy/AdvReac Type Severity Reaction Status Date / Time No Known Allergies Allergy Verified 04/28/21 06:10 Home Medications: Home Meds amLODIPine [Norvasc] 10 mg PO QAM 07/04/20 [History] hydroCHLOROthiazide [Hydrochlorothiazide] 12.5 mg PO QAM 07/04/20 [History] metFORMIN [Glucophage XR] 500 mg PO BID 07/04/20 [History] Past Medical History - Past Health History Medical/Surgical History: Denies Medical/Surgical History HEENT History: Reports: None Cardiovascular History: Reports: Hypertension, SOB on Exertion, Other (See Below) Other Cardiovascular History: Started on medication the end of May. Tachycardia. Respiratory History: Reports: Sleep Apnea, SOB Other Respiratory History: says patient snores. 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 2009 - at 40 weeks - female - 7#14oz. 2012 - PC/S at 40 weeks - female - 11#0oz - general anesthesia, classical incision. 2015 - at 40 weeks - female - 6#8oz - elevated BP. 2017 - RC/S at 40 weeks - female - 6#8oz. Musculoskeletal History: Reports: None Neurological History: Reports: None Psychiatric History: Reports: None Endocrine/Metabolic History: Reports: Diabetes, Type II, Obesity/BMI 30+ Other Endocrine/Metabolic History: Elevated Hgb A1C- started on Metformin. 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 Model and Bomb Loader: None Hematologic History: Reports: Anemia, Iron Deficiency Immunologic History: Reports: None Oncologic (Cancer) History: Reports: None Dermatologic History: Reports: None - Infectious Disease History Infectious Disease History: Reports: None - Past Surgical History Head Surgeries/Procedures: Reports: None HEENT Surgical History: Reports: None Cardiovascular Surgical History: Reports: None Respiratory Surgical History: Reports: None GI Surgical History: Reports: Appendectomy Female Surgical History: Reports: Section Other Female Surgeries/Procedures: 2013 - Primary C/S - general anesthesia, classical incision. 2017 - Repeat C/S Endocrine Surgical History: Reports: None Neurological Surgical History: Reports: None Musculoskeletal Surgical History: Reports: None Oncologic Surgical History: Reports: None Dermatological Surgical History: Reports: None Social & Family History - Family History Family Medical History: No Pertinent Family History - Tobacco Use Tobacco Use Status *Q: Never Tobacco User Second Hand Smoke Exposure: No - Caffeine Use Caffeine Use: Reports: None - Recreational Drug Use Recreational Drug Use: No H&P Review of Systems - Review of Systems: Review Of Systems: See Below General: Reports: No Symptoms HEENT: Reports: No Symptoms Pulmonary: Reports: No Symptoms Cardiovascular: Reports: No Symptoms Gastrointestinal: Reports: No Symptoms Genitourinary: Reports: No Symptoms Musculoskeletal: Reports: No Symptoms Skin: Reports: No Symptoms Psychiatric: Reports: No Symptoms Neurological: Reports: No Symptoms Hematologic/Lymphatic: Reports: No Symptoms Immunologic: Reports: No Symptoms L&D Exam - Exam Exam: See Below - Vital Signs Vital Signs: Last Vital Signs Temp 36.8 C 04/27/21 20:45 Pulse 93 04/27/21 21:14 Resp 36 H 04/27/21 20:45 BP 183/107 H 04/27/21 21:14 Pulse Ox 98 04/27/21 20:45 Weight: 123.377 kg - OB Specific Contraction Intensity: Mild - Erickson Score Erickson Score Cervix Position: Posterior Erickson Score Consistency: Firm Erickson Score Effacement: 31-50% Erickson Score Dilation: Closed Erickson Score Infant's Station: -3 Erickson Score Total: 1 - Exam General: Alert, Oriented HEENT: PERRLA, Conjunctiva Clear, EACs Clear, EOMI, Hearing Intact, Mucosa Moist & [place], Nares Patent, Normal Nasal Septum, Posterior Pharynx Clear, TMs Clear Neck: Supple, Trachea Midline Lungs: Clear to Auscultation, Normal Respiratory Effort Cardiovascular: Regular Rate, Regular Rhythm GI/Abdominal Exam: Normal Bowel Sounds, Soft, Non-Tender, No Organomegaly, No Distention, No Abnormal Bruit, No Mass, Pelvis Stable Rectal Exam: Normal Exam, Normal Rectal Tone Genitourinary: Normal external exam, Normal bimanual exam, Normal speculum exam Back Exam: Normal Inspection, Full Range of Motion Extremities: Normal Inspection, Normal Range of Motion, Non-Tender, No Pedal Pop ma, Normal Capillary Refill Skin: Warm, Dry, Intact Neurological: Cranial Nerves Intact, Reflexes Equal Bilateral Psychiatric: Alert, Normal Affect, Normal Mood - Patient Data Lab Results Last 24 hrs: Laboratory Results - last 24 hr 04/27/21 04/27/21 04/27/21 Range/Units 19:58 19:58 20:15 WBC (4.0-11.0) K/uL RBC (4.30-5.90) M/uL Hgb (12.0-16.0) g/dL Hct (36.0-46.0) % MCV (80.0-98.0) fL MCH (27.0-32.0) pg MCHC (31.0-37.0) g/dL RDW Std Deviation (28.0-62.0) fl RDW Coeff of Zoila (11.0-15.0) % Plt Count (150-400) K/uL Neut % (Auto) (48.0-80.0) % Lymph % (Auto) (16.0-40.0) % [place] % (Auto) (0.0-15.0) % Eos % (Auto) (0.0-7.0) % Baso % (Auto) (0.0-1.5) % Neut # (Auto) (1.4-5.7) K/uL Lymph # (Auto) (0.6-2.4) K/uL Summit # (Auto) (0.0-0.8) K/uL Eos # (Auto) (0.0-0.7) K/uL Baso # (Auto) (0.0-0.1) K/uL Nucleated RBC % /100WBC Nucleated RBCs # K/uL BUN (7.0-18.0) mg/dL Creatinine (0.6-1.0) mg/dL Est Cr Clr Drug Dosing mL/min Estimated GFR (MDRD) ml/min POC Glucose (70-99) mg/dL Uric Acid (2.6-7.2) mg/dL AST (15-37) IU/L ALT (14-63) IU/L Lactate Dehydrogenase (81-234) U/L Urine Color YELLOW Urine Appearance CLEAR Urine pH 6.0 (5.0-8.0) Ur Specific Massey 1.025 (1.001-1.035) Urine Protein 100 H (NEGATIVE) mg/dL Urine Glucose (UA) NEGATIVE (NEGATIVE) mg/dL Urine Ketones NEGATIVE (NEGATIVE) mg/dL Urine Occult Blood NEGATIVE (NEGATIVE) Urine Nitrite NEGATIVE (NEGATIVE) Urine Bilirubin NEGATIVE (NEGATIVE) Urine Urobilinogen 0.2 (<2.0) EU/dL Ur Leukocyte Esterase NEGATIVE (NEGATIVE) Ur Random Creatinine 165.4 mg/dL U Random Total Protein 250.2 H (<11.9) mg/dL Protein/Creatinin Ratio 1.5 SARS-CoV-2 RNA (KODI) (NEGATIVE) Blood Type A NEGATIVE Antibody Screen POSITIVE Antibody Identification Anti-D Crossmatch See Detail 04/27/21 04/27/21 04/27/21 Range/Units 20:15 20:15 20:40 WBC 6.92 (4.0-11.0) K/uL RBC 3.88 L (4.30-5.90) M/uL Hgb 10.3 L (12.0-16.0) g/dL Hct 32.0 L (36.0-46.0) % MCV 82.5 (80.0-98.0) fL MCH 26.5 L (27.0-32.0) pg MCHC 32.2 (31.0-37.0) g/dL RDW Std Deviation 42.2 (28.0-62.0) fl RDW Coeff of Zoila 14 (11.0-15.0) % Plt Count 140 L (150-400) K/uL Neut % (Auto) 65.1 (48.0-80.0) % Lymph % (Auto) 26.6 (16.0-40.0) % Summit % (Auto) 7.4 (0.0-15.0) % Eos % (Auto) 0.9 (0.0-7.0) % Baso % (Auto) 0.0 (0.0-1.5) % Neut # (Auto) 4.5 (1.4-5.7) K/uL Lymph # (Auto) 1.8 (0.6-2.4) K/uL Summit # (Auto) 0.5 (0.0-0.8) K/uL Eos # (Auto) 0.1 (0.0-0.7) K/uL Baso # (Auto) 0.0 (0.0-0.1) K/uL Nucleated RBC % 0.0 /100WBC Nucleated RBCs # 0 K/uL BUN 15 (7.0-18.0) mg/dL Creatinine 0.7 (0.6-1.0) mg/dL Est Cr Clr Drug Dosing 131.91 mL/min Estimated GFR (MDRD) > 60.0 ml/min POC Glucose (70-99) mg/dL Uric Acid 6.1 (2.6-7.2) mg/dL AST 17 (15-37) IU/L ALT 24 (14-63) IU/L Lactate Dehydrogenase 223 (81-234) U/L Urine Color Urine Appearance Urine pH (5.0-8.0) Ur Specific Massey (1.001-1.035) Urine Protein (NEGATIVE) mg/dL Urine Glucose (UA) (NEGATIVE) mg/dL Urine Ketones (NEGATIVE) mg/dL Urine Occult Blood (NEGATIVE) Urine Nitrite (NEGATIVE) Urine Bilirubin (NEGATIVE) Urine Urobilinogen (<2.0) EU/dL Ur Leukocyte Esterase (NEGATIVE) Ur Random Creatinine mg/dL U Random Total Protein (<11.9) mg/dL Protein/Creatinin Ratio SARS-CoV-2 RNA (KODI) NEGATIVE (NEGATIVE) Blood Type Antibody Screen Antibody Identification Crossmatch 04/28/21 Range/Units 07:16 WBC (4.0-11.0) K/uL RBC (4.30-5.90) M/uL Hgb (12.0-16.0) g/dL Hct (36.0-46.0) % MCV (80.0-98.0) fL MCH (27.0-32.0) pg MCHC (31.0-37.0) g/dL RDW Std Deviation (28.0-62.0) fl RDW Coeff of Zoila (11.0-15.0) % Plt Count (150-400) K/uL Neut % (Auto) (48.0-80.0) % Lymph % (Auto) (16.0-40.0) % [place] % (Auto) (0.0-15.0) % Eos % (Auto) (0.0-7.0) % Baso % (Auto) (0.0-1.5) % Neut # (Auto) (1.4-5.7) K/uL Lymph # (Auto) (0.6-2.4) K/uL Summit # (Auto) (0.0-0.8) K/uL Eos # (Auto) (0.0-0.7) K/uL Baso # (Auto) (0.0-0.1) K/uL Nucleated RBC % /100WBC Nucleated RBCs # K/uL BUN (7.0-18.0) mg/dL Creatinine (0.6-1.0) mg/dL Est Cr Clr Drug Dosing mL/min Estimated GFR (MDRD) ml/min POC Glucose 105 H (70-99) mg/dL Uric Acid (2.6-7.2) mg/dL AST (15-37) IU/L ALT (14-63) IU/L Lactate Dehydrogenase (81-234) U/L Urine Color Urine Appearance Urine pH (5.0-8.0) Ur Specific Massey (1.001-1.035) Urine Protein (NEGATIVE) mg/dL Urine Glucose (UA) (NEGATIVE) mg/dL Urine Ketones (NEGATIVE) mg/dL Urine Occult Blood (NEGATIVE) Urine Nitrite (NEGATIVE) Urine Bilirubin (NEGATIVE) Urine Urobilinogen (<2.0) EU/dL Ur Leukocyte Esterase (NEGATIVE) Ur Random Creatinine mg/dL U Random Total Protein (<11.9) mg/dL Protein/Creatinin Ratio SARS-CoV-2 RNA (KODI) (NEGATIVE) Blood Type Antibody Screen Antibody Identification Crossmatch Result Diagrams: 04/27/21 20:15 04/27/21 20:15 Problem List Initiated/Reviewed/Updated: Yes Orders Last 24hrs: Active Orders 24 hr Category Date Time Status Patient Status [ADT] Routine ADT 04/27/21 20:21 Active Heart Tones [RC] CONTINUOUS Care 04/27/21 20:21 Active Non Stress Test [RC] PER UNIT ROUTINE Care 04/27/21 20:21 Active May Shower [RC] ASDIRECTED Care 04/27/21 20:21 Active Notify Provider [RC] PRN Care 04/27/21 20:21 Active Up ad Paulette [RC] ASDIRECTED Care 04/27/21 20:21 Active Vital Signs [RC] PER UNIT ROUTINE Care 04/27/21 20:21 Active ANTIBODY IDENTIFICATION [BBK] Urgent Lab 04/27/21 20:15 Results RED BLOOD CELLS LP [BBK] Urgent Lab 04/28/21 07:00 Results RPR (SYPHILIS SERO) W/ RFLX [REF] Routine Lab 04/27/21 20:15 Received TYPE AND SCREEN [BBK] Urgent Lab 04/27/21 20:15 Results Butorphanol [Stadol] Med 04/27/21 20:20 Active 1 mg IVPUSH Q1H PRN Carboprost Tromethamine [Hemabate DS] Med 04/27/21 20:20 Active 250 mcg IM ASDIRECTED PRN Famotidine [Pepcid] Med 04/28/21 11:00 Once 20 mg IVPUSH ONETIME ONE Labetalol [Normodyne] Med 04/28/21 01:29 Active 20 mg IVPUSH ONETIME PRN Labetalol [Normodyne] Med 04/28/21 09:00 Active 300 mg PO BID Labetalol [Normodyne] Med 04/27/21 22:48 Active 40 mg IVPUSH ONETIME PRN Lactated Ringers [Ringers, Lactated] 1,000 ml Med 04/27/21 20:30 Active IV ASDIRECTED Lidocaine 1% [Xylocaine 1%] Med 04/27/21 20:20 Active 50 ml INJECT ONETIME PRN Methylergonovine [Methergine] Med 04/27/21 20:20 Active 0.2 mg IM ASDIRECTED PRN NIFEdipine [Procardia XL] Med 04/28/21 09:00 Active 30 mg PO DAILY Nalbuphine [Nubain] Med 04/27/21 20:20 Active 10 mg IVPUSH Q1H PRN Ondansetron [Zofran] Med 04/27/21 20:20 Active 4 mg IVPUSH Q4H PRN Oxytocin/0.9 % Sodium Chloride [Oxytocin 30 Unit in NS Med 04/27/21 20:30 Active 0.9% 500 ML Premix] 30 unit in 500 ml IV TITRATE Sodium Chloride 0.9% [Normal Saline] Med 04/27/21 20:20 Active 10 ml IV ASDIRECTED PRN Sodium Chloride 0.9% [Saline Flush] Med 04/27/21 20:20 Active 10 ml FLUSH ASDIRECTED PRN Sodium Chloride 0.9% [Saline Flush] Med 04/27/21 20:20 Active 2.5 ml FLUSH ASDIRECTED PRN Tranexamic Acid [Cyklokapron] 1,000 mg Med 04/27/21 20:20 Active Sodium Chloride 0.9% [Normal Saline] 100 ml IV ONETIME Water For Irrigation,Sterile [Sterile Water for Med 04/27/21 20:20 Active Irrigation] 1,000 ml IRR ASDIRECTED PRN hydrALAZINE [Apresoline] Med 04/27/21 23:28 Active 10 mg IVPUSH ONETIME PRN miSOPROStoL [Cytotec] Med 04/27/21 20:20 Active 200 mcg PO ONETIME PRN Scalp Electrode [WOMSER] Per Unit Routine Oth 04/27/21 20:21 Ordered PIH Panel [OM.PC] Urgent Oth 04/27/21 20:20 Ordered Peripheral IV Insertion Adult [OM.PC] Routine Oth 04/27/21 20:21 Ordered Resuscitation Status Routine Resus Stat 04/27/21 20:20 Ordered Medication Orders Butorphanol Tartrate (Butorphanol 1 Mg/Ml Sdv) 1 mg IVPUSH Q1H PRN PRN Reason: Pain (severe 7-10) Carboprost Tromethamine (Carboprost Tromethamine 250 Mcg/1 Ml Amp) 250 mcg IM ASDIRECTED PRN PRN Reason: Post Hemorrhage Famotidine (Famotidine 20 Mg/2 Ml Sdv) 20 mg IVPUSH ONETIME ONE Stop: 04/28/21 11:01 Hydralazine HCl (Hydralazine 20 Mg/Ml Sdv) 10 mg IVPUSH ONETIME PRN PRN Reason: Hypertension Oxytocin/Sodium Chloride (Oxytocin 30 Unit In Ns 0.9% 500 Ml Premix) 30 unit in 500 mls @ 999 mls/hr IV TITRATE DUC Tranexamic Acid 1,000 mg/ (Sodium Chloride) 110 mls @ 660 mls/hr IV ONETIME PRN PRN Reason: Bleeding Lactated Ringer's (Ringers, Lactated) 1,000 mls @ 150 mls/hr IV ASDIRECTED DUC Last Admin: 04/28/21 07:41 Dose: 150 mls/hr Documented by: Infusion: 04/28/21 04:05 Dose: 150 mls/hr Documented by: Admin: 04/27/21 21:24 Dose: 150 mls/hr Documented by: ABDULKADIR Labetalol HCl (Labetalol 100 Mg/20 Ml Mdv) 40 mg IVPUSH ONETIME PRN; Protocol PRN Reason: Hypertension Last Admin: 04/28/21 03:15 Dose: 40 mg Documented by: Admin: 04/28/21 02:35 Dose: 40 mg Documented by: Admin: 04/27/21 22:52 Dose: 40 mg Documented by: ABDULKADIR Labetalol HCl (Labetalol 100 Mg/20 Ml Mdv) 20 mg IVPUSH ONETIME PRN; Protocol PRN Reason: Hypertension Last Admin: 04/28/21 02:18 Dose: 20 mg Documented by: ABDULKADIR Labetalol HCl (Labetalol 100 Mg Tab) 300 mg PO BID [facility] Lidocaine HCl (Lidocaine 1% 50 Ml Mdv) 50 ml INJECT ONETIME PRN PRN Reason: Laceration repair Methylergonovine Maleate (Methylergonovine 0.2 Mg/1 Ml Amp) 0.2 mg IM ASDIRECTED PRN PRN Reason: Post Hemorrhage Misoprostol (Misoprostol 200 Mcg Tab) 200 mcg PO ONETIME PRN PRN Reason: Post Hemorrhage Nalbuphine HCl (Nalbuphine 10 Mg/1 Ml Vial) 10 mg IVPUSH Q1H PRN PRN Reason: Pain (severe 7-10) Nifedipine (Nifedipine 30 Mg Tab.Er) 30 mg PO DAILY [facility] Ondansetron HCl (Ondansetron 4 Mg/2 Ml Sdv) 4 mg IVPUSH Q4H PRN PRN Reason: Nausea/Vomiting Sodium Chloride (Sodium Chloride 0.9% 10 Ml Syringe) 10 ml FLUSH ASDIRECTED PRN PRN Reason: Keep Vein Open Sodium Chloride (Sodium Chloride 0.9% 2.5 Ml Syringe) 2.5 ml FLUSH ASDIRECTED PRN PRN Reason: Keep Vein Open Sodium Chloride (Sodium Chloride 0.9% 20 Ml Sdv) 10 ml IV ASDIRECTED PRN PRN Reason: IV Use Sterile Water (Water For Irrigation,Sterile 1,000 Ml Container) 1,000 ml IRR ASDIRECTED PRN PRN Reason: delivery Assessment/Plan Comment:: For 31 years old patient multipurpose have multiple section before the patient have chronic hypertension prior to getting and she was on medication we continued her medication she was followed according to the high- risk protocol. She is 37+3 weeks she saw the faucets assembler in consultation yesterday blood pressure is extremely elevated she was admitted she was putting on IV medication to lower her blood pressure and in consultation and based on the recommendation of the faucets assembler we elected to do her section today instead of next week I explained this finding and the rationale to the patient and her .
[2021-04-28] MEDS: NIFEdipine 30 MG Tab.ER PO SCH (08:43)
[2021-04-28] MEDS: Labetalol 100 MG Tab PO SCH ×2 (08:48→20:10)
[2021-04-28] MEDS ORDERED: Sodium Chloride 0.9% 10 ML Syringe FLUSH PRN (09:20)
[2021-04-28] MEDS ORDERED: Citric Acid/Sodium Citrate Solution 30 ML Cup PO ONE (09:20)
[2021-04-28] MEDS ORDERED: Sodium Chloride 0.9% 2.5 ML Syringe FLUSH PRN (09:20)
[2021-04-28] MEDS ORDERED: Sodium Chloride 0.9% 20 ML SDV IV PRN (09:20)
[2021-04-28] MEDS ORDERED: CEFAZOLIN IV ONE (09:25)
[2021-04-28] MEDS ORDERED: Oxytocin/0.9 % Sodium Chloride 30 UNIT/500 ML BAG IV SCH (09:30)
[2021-04-28] MEDS ORDERED: Lactated Ringers 1,000 ML IV SCH ×2 (09:30→13:30)
[2021-04-28] MEDS ORDERED: Famotidine 20 MG/2 ML SDV IVPUSH ONE (11:00)
[2021-04-28] MEDS ORDERED: fentaNYL 100 MCG/2 ML SDV ONE (11:45)
[2021-04-28] MEDS ORDERED: Bisacodyl 10 MG Supp RECTAL PRN (13:16)
[2021-04-28] MEDS ORDERED: Oxytocin 10 Units/1 ML SDV IM PRN (13:16)
[2021-04-28] MEDS ORDERED: Methylergonovine 0.2 MG/1 ML Amp IM PRN (13:16)
[2021-04-28] MEDS ORDERED: Ondansetron 4 MG/2 ML SDV IVPUSH PRN (13:16)
[2021-04-28] MEDS ORDERED: Tranexamic Acid 1,000 MG in Sodium Chloride 0.9% 100 ML IV PRN (13:16)
[2021-04-28] MEDS ORDERED: Ibuprofen 800 MG Tab PO PRN (13:16)
[2021-04-28] MEDS ORDERED: Misoprostol 200 MCG Tab RECTAL PRN (13:16)
[2021-04-28] MEDS ORDERED: Lanolin 100% Cream 7 GM Tube TOP PRN (13:16)
--- NOTE | 2021-04-28 13:20 | PCM.OPNOTE ---
- General Post-Op/Procedure Note Date of Surgery/Procedure: 04/28/21 Post-Op Diagnosis: Same Anesthesia Technique: Spinal Primary Surgeon: Rosalio Trevino Rope Walker: huan Mcintosh EBL in mLs: 1,000 Complications: None Condition: Good Free Text/Narrative:: Intake & Output 04/27/21 04/28/21 04/28/21 22:59 06:59 14:59 Intake Total 750 Output Total 600 Balance 150
[2021-04-28] MEDS ORDERED: Ketorolac 30 MG/ML SDV IVPUSH SCH (13:30)
[2021-04-28] MEDS ORDERED: Phenylephrine 1% 10 MG/ML SDV ONE (13:49)
[2021-04-28] MEDS ORDERED: Oxytocin 10 Units/1 ML SDV ONE (13:50)
[2021-04-28] MEDS: Acetaminophen/oxyCODONE 325-5 MG Tab PO PRN ×2 (14:57→22:06)
[2021-04-28] MEDS: diphenhydrAMINE 50 MG/ML SDV IVPUSH PRN ×2 (14:59→17:53)
[2021-04-28 15:05] LABS: BLOOD UREA NITROGEN,BUN 14 mg/dL (7.0-18.0); CARBON DIOXIDE,CO2 25.8 mmol/L (21.0-32.0); CHLORIDE,CL 107 mmol/L (98-107); GLUCOSE RANDOM 88 mg/dL (74-106); POTASSIUM,K 3.7 mmol/L (3.5-5.1); SODIUM,NA 139 mmol/L (136-145)
[2021-04-28] MEDS ORDERED: Furosemide 20 MG/2 ML VIAL IVPUSH ONE ×2 (16:45→17:15)
[2021-04-28] MEDS ORDERED: Dexamethasone 10 MG/ML SDV IVPUSH ONE (18:00)
--- NOTE | 2021-04-28 19:15 | CR ---
INDICATION: Shortness of breath, . TECHNIQUE: Portable AP chest. Comparison: 11/19/2020. FINDINGS: Heart size exaggerated by portable technique, shallow inspiration, and lordotic projection. Lungs grossly clear. No effusion or pneumothorax identified. No acute findings. Dictated by Alo Gonzalez MD @ 04/28/2021 7:13:23 PM (Electronically Signed)
[2021-04-28 19:56] LABS: BLOOD UREA NITROGEN,BUN 17 mg/dL (7.0-18.0); CARBON DIOXIDE,CO2 24.7 mmol/L (21.0-32.0); CHLORIDE,CL 106 mmol/L (98-107); GLUCOSE RANDOM 95 mg/dL (74-106); POTASSIUM,K 4.6 mmol/L (3.5-5.1); SODIUM,NA 139 mmol/L (136-145)
[2021-04-28] MEDS: Docusate Sodium 100 MG Cap PO SCH (20:09)
--- NOTE | 2021-04-28 20:20 | PCM.CONS ---
H&P History of Present Illness - General Date of Service: 04/28/21 Admit Problem/Dx: Patient Status Order with Admit Dx/Problem 04/27/21 20:21 Patient Status [ADT] Routine Admission Diagnosis/Problem Admission Diagnosis/Problem - History of Present Illness Initial Comments - Free Text/Narative: Consultation on a 31 y/o post patient for anaphylaxis to either lasix or toradol. Pt is a 31 y/o female who was admitted yesterday for uncontrolled HTN at (37+3 )weeks . Earlier in the day she saw her prekindergarten teacher in consultation who recommended that she gets admitted for BP control. Since her admission she has received oral and IV BP medications. Today her coal miner decided to perform a C section. Post she received a dose of lasix and then toradol prn within the same hour. Moments later her lips, tongue and throat swelled up. The hospitalist team was consulted to assist with management of the anaphylactic reactions. Pt was given benadryl and later transferred to the ICU for close monitoring. She denied feeling short of breath. She was noted to snore loudly as she fell asleep. Her confirmed that she snores on pretty much a daily basis. Incisional Pain Score (Numeric/FACES): 5 - Related Data Allergies/Adverse Reactions: Allergies Allergy/AdvReac Type Severity Reaction Status Date / Time ketorolac [From Toradol] Allergy Facial Verified 04/29/21 00:05 Swelling Home Medications: Home Meds amLODIPine [Norvasc] 10 mg PO QAM 07/04/20 [History] hydroCHLOROthiazide [Hydrochlorothiazide] 12.5 mg PO QAM 07/04/20 [History] metFORMIN [Glucophage XR] 500 mg PO BID 07/04/20 [History] Past Medical History - Past Health History Medical/Surgical History: Denies Medical/Surgical History HEENT History: Reports: None Cardiovascular History: Reports: Hypertension, SOB on Exertion, Other (See Below) Other Cardiovascular History: Started on medication the end of May. Tachycardia. Respiratory History: Reports: Sleep Apnea, SOB Other Respiratory History: says patient snores. 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 2009 - at 40 weeks - female - 7#14oz. 2012 - PC/S at 40 weeks - female - 11#0oz - general anesthesia, classical incision. 2015 - at 40 weeks - female - 6#8oz - elevated BP. 2017 - RC/S at 40 weeks - female - 6#8oz. Musculoskeletal History: Reports: None Neurological History: Reports: None Psychiatric History: Reports: None Endocrine/Metabolic History: Reports: Diabetes, Type II, Obesity/BMI 30+ Other Endocrine/Metabolic History: Elevated Hgb A1C- started on Metformin. 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: None Hematologic History: Reports: Anemia, Iron Deficiency Immunologic History: Reports: None Oncologic (Cancer) History: Reports: None Dermatologic History: Reports: None - Infectious Disease History Infectious Disease History: Reports: None - Past Surgical History Head Surgeries/Procedures: Reports: None HEENT Surgical History: Reports: None Cardiovascular Surgical History: Reports: None Respiratory Surgical History: Reports: None GI Surgical History: Reports: Appendectomy Female Surgical History: Reports: Section Other Female Surgeries/Procedures: 2013 - Primary C/S - general anesthesia, classical incision. 2017 - Repeat C/S Endocrine Surgical History: Reports: None Neurological Surgical History: Reports: None Musculoskeletal Surgical History: Reports: None Oncologic Surgical History: Reports: None Dermatological Surgical History: Reports: None Social & Family History - Family History Family Medical History: No Pertinent Family History - Tobacco Use Tobacco Use Status *Q: Never Tobacco User Second Hand Smoke Exposure: No - Caffeine Use Caffeine Use: Reports: None - Recreational Drug Use Recreational Drug Use: No H&P Review of Systems - Review of Systems: Review Of Systems: See Below Exam - Exam Exam: See Below - Vital Signs Vital Signs: Last Vital Signs Temp 98.3 F 04/27/21 20:45 Pulse 87 04/28/21 20:10 Resp 26 H 04/28/21 17:00 BP 168/107 H 04/28/21 20:10 Pulse Ox 100 04/28/21 18:28 Weight: 272 lb - Exam Physical Exam Comments:: General: obese young female. In no acute distress. Able to speak in full sentences CVS: S1S2 appreciated. RRR. No murmurs, rubs or gallops lungs: clear bilaterally with no rales or wheezes pa: soft, obese. Clean dressings over the hysterectomy incision wounds ext: no clubbing or cyanosis. 1+ peripheral pedal edema neuro: drowsy but arousable. Moves all extremities. psych: stable mood and affect. - Patient Data Lab Results Last 24 hrs: Laboratory Results - last 24 hr 04/27/21 04/27/21 04/27/21 Range/Units 19:58 19:58 20:15 WBC (4.0-11.0) K/uL RBC (4.30-5.90) M/uL Hgb (12.0-16.0) g/dL Hct (36.0-46.0) % MCV (80.0-98.0) fL MCH (27.0-32.0) pg MCHC (31.0-37.0) g/dL RDW Std Deviation (28.0-62.0) fl RDW Coeff of Zoila (11.0-15.0) % Plt Count (150-400) K/uL MPV (7.40-12.00) fL Neut % (Auto) (48.0-80.0) % Lymph % (Auto) (16.0-40.0) % [place] % (Auto) (0.0-15.0) % Eos % (Auto) (0.0-7.0) % Baso % (Auto) (0.0-1.5) % Neut # (Auto) (1.4-5.7) K/uL Lymph # (Auto) (0.6-2.4) K/uL [place] # (Auto) (0.0-0.8) K/uL Eos # (Auto) (0.0-0.7) K/uL Baso # (Auto) (0.0-0.1) K/uL Nucleated RBC % /100WBC Nucleated RBCs # K/uL INR Fibrinogen (215-411) mg/dL Sodium (136-145) mmol/L Potassium (3.5-5.1) mmol/L Chloride (98-107) mmol/L Carbon Dioxide (21.0-32.0) mmol/L BUN (7.0-18.0) mg/dL Creatinine (0.6-1.0) mg/dL Est Cr Clr Drug Dosing mL/min Estimated GFR (MDRD) ml/min Glucose (74-106) mg/dL POC Glucose (70-99) mg/dL Uric Acid (2.6-7.2) mg/dL Calcium (8.5-10.1) mg/dL Total Bilirubin (0.2-1.0) mg/dL AST (15-37) IU/L ALT (14-63) IU/L Alkaline Phosphatase (46-116) U/L Lactate Dehydrogenase (81-234) U/L Total Protein (6.4-8.2) g/dL Albumin (3.4-5.0) g/dL Globulin (2.6-4.0) g/dL Albumin/Globulin Ratio (0.9-1.6) Urine Color YELLOW Urine Appearance CLEAR Urine pH 6.0 (5.0-8.0) Ur Specific [place] 1.025 (1.001-1.035) Urine Protein 100 H (NEGATIVE) mg/dL Urine Glucose (UA) NEGATIVE (NEGATIVE) mg/dL Urine Ketones NEGATIVE (NEGATIVE) mg/dL Urine Occult Blood NEGATIVE (NEGATIVE) Urine Nitrite NEGATIVE (NEGATIVE) Urine Bilirubin NEGATIVE (NEGATIVE) Urine Urobilinogen 0.2 (<2.0) EU/dL Ur Leukocyte Esterase NEGATIVE (NEGATIVE) Ur Random Creatinine 165.4 mg/dL U Random Total Protein 250.2 H (<11.9) mg/dL Protein/Creatinin Ratio 1.5 SARS-CoV-2 RNA (KODI) (NEGATIVE) Blood Type A NEGATIVE Antibody Screen POSITIVE Antibody Identification Anti-D Rhogam Indicated Crossmatch See Detail 04/27/21 04/27/21 04/27/21 Range/Units 20:15 20:15 20:40 WBC 6.92 (4.0-11.0) K/uL RBC 3.88 L (4.30-5.90) M/uL Hgb 10.3 L (12.0-16.0) g/dL Hct 32.0 L (36.0-46.0) % MCV 82.5 (80.0-98.0) fL MCH 26.5 L (27.0-32.0) pg MCHC 32.2 (31.0-37.0) g/dL RDW Std Deviation 42.2 (28.0-62.0) fl RDW Coeff of Zoila 14 (11.0-15.0) % Plt Count 140 L (150-400) K/uL MPV (7.40-12.00) fL Neut % (Auto) 65.1 (48.0-80.0) % Lymph % (Auto) 26.6 (16.0-40.0) % [place] % (Auto) 7.4 (0.0-15.0) % Eos % (Auto) 0.9 (0.0-7.0) % Baso % (Auto) 0.0 (0.0-1.5) % Neut # (Auto) 4.5 (1.4-5.7) K/uL Lymph # (Auto) 1.8 (0.6-2.4) K/uL [place] # (Auto) 0.5 (0.0-0.8) K/uL Eos # (Auto) 0.1 (0.0-0.7) K/uL Baso # (Auto) 0.0 (0.0-0.1) K/uL Nucleated RBC % 0.0 /100WBC Nucleated RBCs # 0 K/uL INR Fibrinogen (215-411) mg/dL Sodium (136-145) mmol/L Potassium (3.5-5.1) mmol/L Chloride (98-107) mmol/L Carbon Dioxide (21.0-32.0) mmol/L BUN 15 (7.0-18.0) mg/dL Creatinine 0.7 (0.6-1.0) mg/dL Est Cr Clr Drug Dosing 131.91 mL/min Estimated GFR (MDRD) > 60.0 ml/min Glucose (74-106) mg/dL POC Glucose (70-99) mg/dL Uric Acid 6.1 (2.6-7.2) mg/dL Calcium (8.5-10.1) mg/dL Total Bilirubin (0.2-1.0) mg/dL AST 17 (15-37) IU/L ALT 24 (14-63) IU/L Alkaline Phosphatase (46-116) U/L Lactate Dehydrogenase 223 (81-234) U/L Total Protein (6.4-8.2) g/dL Albumin (3.4-5.0) g/dL Globulin (2.6-4.0) g/dL Albumin/Globulin Ratio (0.9-1.6) Urine Color Urine Appearance Urine pH (5.0-8.0) Ur Specific [place] (1.001-1.035) Urine Protein (NEGATIVE) mg/dL Urine Glucose (UA) (NEGATIVE) mg/dL Urine Ketones (NEGATIVE) mg/dL Urine Occult Blood (NEGATIVE) Urine Nitrite (NEGATIVE) Urine Bilirubin (NEGATIVE) Urine Urobilinogen (<2.0) EU/dL Ur Leukocyte Esterase (NEGATIVE) Ur Random Creatinine mg/dL U Random Total Protein (<11.9) mg/dL Protein/Creatinin Ratio SARS-CoV-2 RNA (KODI) NEGATIVE (NEGATIVE) Blood Type Antibody Screen Antibody Identification Rhogam Indicated Crossmatch 04/28/21 04/28/21 04/28/21 Range/Units 07:16 11:06 11:11 WBC 7.47 (4.0-11.0) K/uL RBC 3.74 L (4.30-5.90) M/uL Hgb 9.9 L (12.0-16.0) g/dL Hct 30.7 L (36.0-46.0) % MCV 82.1 (80.0-98.0) fL MCH 26.5 L (27.0-32.0) pg MCHC 32.2 (31.0-37.0) g/dL RDW Std Deviation 42.3 (28.0-62.0) fl RDW Coeff of Zoila 14 (11.0-15.0) % Plt Count 131 L (150-400) K/uL MPV (7.40-12.00) fL Neut % (Auto) 64.3 (48.0-80.0) % Lymph % (Auto) 24.6 (16.0-40.0) % [place] % (Auto) 10.2 (0.0-15.0) % Eos % (Auto) 0.8 (0.0-7.0) % Baso % (Auto) 0.1 (0.0-1.5) % Neut # (Auto) 4.8 (1.4-5.7) K/uL Lymph # (Auto) 1.8 (0.6-2.4) K/uL [place] # (Auto) 0.8 (0.0-0.8) K/uL Eos # (Auto) 0.1 (0.0-0.7) K/uL Baso # (Auto) 0.0 (0.0-0.1) K/uL Nucleated RBC % 0.0 /100WBC Nucleated RBCs # 0 K/uL INR Fibrinogen (215-411) mg/dL Sodium (136-145) mmol/L Potassium (3.5-5.1) mmol/L Chloride (98-107) mmol/L Carbon Dioxide (21.0-32.0) mmol/L BUN (7.0-18.0) mg/dL Creatinine (0.6-1.0) mg/dL Est Cr Clr Drug Dosing mL/min Estimated GFR (MDRD) ml/min Glucose (74-106) mg/dL POC Glucose 105 H 80 (70-99) mg/dL Uric Acid (2.6-7.2) mg/dL Calcium (8.5-10.1) mg/dL Total Bilirubin (0.2-1.0) mg/dL AST (15-37) IU/L ALT (14-63) IU/L Alkaline Phosphatase (46-116) U/L Lactate Dehydrogenase (81-234) U/L Total Protein (6.4-8.2) g/dL Albumin (3.4-5.0) g/dL Globulin (2.6-4.0) g/dL Albumin/Globulin Ratio (0.9-1.6) Urine Color Urine Appearance Urine pH (5.0-8.0) Ur Specific [place] (1.001-1.035) Urine Protein (NEGATIVE) mg/dL Urine Glucose (UA) (NEGATIVE) mg/dL Urine Ketones (NEGATIVE) mg/dL Urine Occult Blood (NEGATIVE) Urine Nitrite (NEGATIVE) Urine Bilirubin (NEGATIVE) Urine Urobilinogen (<2.0) EU/dL Ur Leukocyte Esterase (NEGATIVE) Ur Random Creatinine mg/dL U Random Total Protein (<11.9) mg/dL Protein/Creatinin Ratio SARS-CoV-2 RNA (KODI) (NEGATIVE) Blood Type Antibody Screen Antibody Identification Rhogam Indicated Crossmatch 04/28/21 04/28/21 04/28/21 Range/Units 12:45 13:57 13:57 WBC 6.21 (4.0-11.0) K/uL RBC 3.48 L (4.30-5.90) M/uL Hgb 9.2 L (12.0-16.0) g/dL Hct 28.8 L (36.0-46.0) % MCV 82.8 (80.0-98.0) fL MCH 26.4 L (27.0-32.0) pg MCHC 31.9 (31.0-37.0) g/dL RDW Std Deviation 42.6 (28.0-62.0) fl RDW Coeff of Zoila 14 (11.0-15.0) % Plt Count 121 L (150-400) K/uL MPV (7.40-12.00) fL Neut % (Auto) 61.8 (48.0-80.0) % Lymph % (Auto) 26.2 (16.0-40.0) % [place] % (Auto) 10.8 (0.0-15.0) % Eos % (Auto) 1.0 (0.0-7.0) % Baso % (Auto) 0.2 (0.0-1.5) % Neut # (Auto) 3.8 (1.4-5.7) K/uL Lymph # (Auto) 1.6 (0.6-2.4) K/uL [place] # (Auto) 0.7 (0.0-0.8) K/uL Eos # (Auto) 0.1 (0.0-0.7) K/uL Baso # (Auto) 0.0 (0.0-0.1) K/uL Nucleated RBC % 0.0 /100WBC Nucleated RBCs # 0 K/uL INR 0.99 Fibrinogen 407 (215-411) mg/dL Sodium (136-145) mmol/L Potassium (3.5-5.1) mmol/L Chloride (98-107) mmol/L Carbon Dioxide (21.0-32.0) mmol/L BUN (7.0-18.0) mg/dL Creatinine (0.6-1.0) mg/dL Est Cr Clr Drug Dosing mL/min Estimated GFR (MDRD) ml/min Glucose (74-106) mg/dL POC Glucose (70-99) mg/dL Uric Acid (2.6-7.2) mg/dL Calcium (8.5-10.1) mg/dL Total Bilirubin (0.2-1.0) mg/dL AST (15-37) IU/L ALT (14-63) IU/L Alkaline Phosphatase (46-116) U/L Lactate Dehydrogenase (81-234) U/L Total Protein (6.4-8.2) g/dL Albumin (3.4-5.0) g/dL Globulin (2.6-4.0) g/dL Albumin/Globulin Ratio (0.9-1.6) Urine Color Urine Appearance Urine pH (5.0-8.0) Ur Specific [place] (1.001-1.035) Urine Protein (NEGATIVE) mg/dL Urine Glucose (UA) (NEGATIVE) mg/dL Urine Ketones (NEGATIVE) mg/dL Urine Occult Blood (NEGATIVE) Urine Nitrite (NEGATIVE) Urine Bilirubin (NEGATIVE) Urine Urobilinogen (<2.0) EU/dL Ur Leukocyte Esterase (NEGATIVE) Ur Random Creatinine mg/dL U Random Total Protein (<11.9) mg/dL Protein/Creatinin Ratio SARS-CoV-2 RNA (KODI) (NEGATIVE) Blood Type Antibody Screen Antibody Identification Rhogam Indicated NO,MOM ANTI-D Crossmatch 04/28/21 04/28/21 Range/Units 13:57 19:26 WBC (4.0-11.0) K/uL RBC (4.30-5.90) M/uL Hgb (12.0-16.0) g/dL Hct (36.0-46.0) % MCV (80.0-98.0) fL MCH (27.0-32.0) pg MCHC (31.0-37.0) g/dL RDW Std Deviation (28.0-62.0) fl RDW Coeff of Zoila (11.0-15.0) % Plt Count (150-400) K/uL MPV (7.40-12.00) fL Neut % (Auto) (48.0-80.0) % Lymph % (Auto) (16.0-40.0) % [place] % (Auto) (0.0-15.0) % Eos % (Auto) (0.0-7.0) % Baso % (Auto) (0.0-1.5) % Neut # (Auto) (1.4-5.7) K/uL Lymph # (Auto) (0.6-2.4) K/uL [place] # (Auto) (0.0-0.8) K/uL Eos # (Auto) (0.0-0.7) K/uL Baso # (Auto) (0.0-0.1) K/uL Nucleated RBC % /100WBC Nucleated RBCs # K/uL INR Fibrinogen (215-411) mg/dL Sodium 139 139 (136-145) mmol/L Potassium 3.7 4.6 (3.5-5.1) mmol/L Chloride 107 106 (98-107) mmol/L Carbon Dioxide 25.8 24.7 (21.0-32.0) mmol/L BUN 14 17 (7.0-18.0) mg/dL Creatinine 0.8 0.8 (0.6-1.0) mg/dL Est Cr Clr Drug Dosing 104.53 104.53 mL/min Estimated GFR (MDRD) > 60.0 > 60.0 ml/min Glucose 88 95 (74-106) mg/dL POC Glucose (70-99) mg/dL Uric Acid (2.6-7.2) mg/dL Calcium 7.9 L 7.8 L (8.5-10.1) mg/dL Total Bilirubin 0.2 (0.2-1.0) mg/dL AST 13 L (15-37) IU/L ALT 16 (14-63) IU/L Alkaline Phosphatase 134 H (46-116) U/L Lactate Dehydrogenase (81-234) U/L Total Protein 6.0 L (6.4-8.2) g/dL Albumin 1.7 L (3.4-5.0) g/dL Globulin 4.3 H (2.6-4.0) g/dL Albumin/Globulin Ratio 0.4 L (0.9-1.6) Urine Color Urine Appearance Urine pH (5.0-8.0) Ur Specific [place] (1.001-1.035) Urine Protein (NEGATIVE) mg/dL Urine Glucose (UA) (NEGATIVE) mg/dL Urine Ketones (NEGATIVE) mg/dL Urine Occult Blood (NEGATIVE) Urine Nitrite (NEGATIVE) Urine Bilirubin (NEGATIVE) Urine Urobilinogen (<2.0) EU/dL Ur Leukocyte Esterase (NEGATIVE) Ur Random Creatinine mg/dL U Random Total Protein (<11.9) mg/dL Protein/Creatinin Ratio SARS-CoV-2 RNA (KODI) (NEGATIVE) Blood Type Antibody Screen Antibody Identification Rhogam Indicated Crossmatch Result Diagrams: 04/29/21 06:34 04/29/21 06:34 Sepsis Event Note - Evaluation Sepsis Screening Result: No Definite Risk - Focused Exam Vital Signs: Vital Signs Pulse Pulse Resp BP BP Pulse Ox Pulse Ox 04/28/21 20:10 87 168/107 H 04/28/21 18:28 100 04/28/21 17:00 78 26 H 133/65 100 04/28/21 16:00 74 26 H 121/58 L 100 04/28/21 08:48 83 144/65 H Consult PN Assessment/Plan Procedures: Procedures AIRWAY INHALATION TREATMENT (05/16/19) ASSAY GLUCOSE BLOOD QUANT (04/11/21) ASSAY OF BLOOD/URIC ACID (04/11/21) ASSAY OF LIPASE (07/09/20) ASSAY OF MAGNESIUM (11/18/20) ASSAY OF PROTEIN URINE (04/24/21) ASSAY OF TROPONIN QUANT (11/18/20) ASSAY OF URINE CREATININE (04/24/21) ASSAY THYROID STIM HORMONE (11/23/20) BLOOD TYPING SEROLOGIC ABO (11/02/20) BLOOD TYPING SEROLOGIC RH(D) (11/02/20) CHORIONIC GONADOTROPIN ASSAY (07/07/20) CHORIONIC GONADOTROPIN TEST (11/18/20) CHYLMD TRACH DNA AMP PROBE (04/13/21) COMPLETE CBC AUTOMATED (04/11/21) COMPLETE CBC W/AUTO DIFF WBC (04/11/21) COMPREHEN METABOLIC PANEL (04/11/21) CT ABD & PELV W/CONTRAST (07/09/20) DRUG TEST PRSMV DIR OPT OBS (10/31/20) ECHO EXAM OF ABDOMEN (05/17/20) ELECTROCARDIOGRAM TRACING (11/18/20) EMERGENCY DEPT VISIT (11/18/20) EMERGENCY DEPT VISIT (11/13/20) EMERGENCY DEPT VISIT (03/21/20) BIOPHYS PROFIL W/O NST (04/11/21) NON-STRESS TEST (04/19/21) FIBRIN DEGRADATION QUANT (11/18/20) GLUCOSE BLOOD TEST (07/09/20) GLUCOSE TEST (02/01/21) GLYCOSYLATED HEMOGLOBIN TEST (11/23/20) HEPATIC FUNCTION PANEL (04/11/21) HEPATITIS B SURFACE AG IA (10/31/20) HEPATITIS C AB TEST (11/02/20) HIV-1 AG W/HIV-1 & -2 AB AG IA (11/02/20) HYDRATE IV INFUSION ADD-ON (05/16/19) IMMUNIZATION ADMIN (11/13/20) INFLUENZA ASSAY W/OPTIC (05/16/19) LAP ENTEROLYSIS (07/09/20) LAPAROSCOPY REMOVE ADNEXA (07/07/20) METABOLIC PANEL TOTAL CA (07/07/20) N.GONORRHOEAE DNA AMP PROB (04/13/21) OB US < 14 WKS SINGLE FETUS (11/18/20) OB US >/= 14 WKS SNGL FETUS (01/16/21) OB US FOLLOW-UP PER FETUS (04/06/21) RBC ANTIBODY IDENTIFICATION (02/01/21) RBC ANTIBODY SCREEN (02/01/21) ROUTINE VENIPUNCTURE (04/11/21) RPR S/N/AX/GEN/TRNK2.6-7.5CM (11/13/20) RUBELLA ANTIBODY (11/02/20) SARS-COV-2 COVID-19 AMP PRB (04/11/21) STREP A ASSAY W/OPTIC (05/16/19) STREP B DNA AMP PROBE (04/19/21) SYPHILIS TEST NON-TREP QUAL (11/02/20) TDAP VACCINE 7 YRS/> IM (11/13/20) THER/PROPH/DIAG INJ IV PUSH (11/18/20) THER/PROPH/DIAG INJ SC/IM (05/16/19) THER/PROPH/DIAG IV INF INIT (05/16/19) TISSUE EXAM BY PATHOLOGIST (07/07/20) TRANSVAGINAL US OBSTETRIC (01/16/21) TTE W/DOPPLER COMPLETE (04/19/21) TX/PRO/DX INJ NEW DRUG ADDON (03/21/20) URINALYSIS AUTO W/O SCOPE (11/18/20) URINALYSIS AUTO W/SCOPE (04/11/21) URINE CULTURE/COLONY COUNT (04/13/21) URINE TEST (07/09/20) VITAMIN D 25 HYDROXY (11/02/20) X-RAY EXAM CHEST 1 VIEW (11/18/20) X-RAY EXAM CHEST 2 VIEWS (05/16/19) (1) T2DM (type 2 diabetes mellitus) SNOMED Code(s): 58975546 Code(s): E11.9 - TYPE 2 DIABETES MELLITUS WITHOUT COMPLICATIONS Current Visit: Yes (2) Anaphylactic reaction SNOMED Code(s): 68590523 Code(s): T78.2XXA - ANAPHYLACTIC SHOCK, UNSPECIFIED, INITIAL ENCOUNTER Current Visit: Yes (3) Morbid obesity SNOMED Code(s): 432750112 Code(s): E66.01 - MORBID (SEVERE) OBESITY DUE TO EXCESS CALORIES Current Visit: Yes (4) CRISTHIAN (obstructive sleep apnea) SNOMED Code(s): 42393351 Code(s): G47.33 - OBSTRUCTIVE SLEEP APNEA (ADULT) (PEDIATRIC) Current Visit: Yes (5) condition SNOMED Code(s): 78785063 Code(s): P96.9 - CONDITION ORIGINATING IN THE PERIOD, UNSPECIFIED Current Visit: Yes Problem List Initiated/Reviewed/Updated: Yes My Orders Last 24 Hours: My Active Orders 04/28/21 20:14 Transfer Patient (Change bed) [ADT] Routine Plan: Anaphylactic reaction to medication either lasix or toradol Transfer pt to the ICU for close monitoring Continous pulse oximetry Benadryl, H2 brian and prednisone oxygen supplementation HTN Continue home BP meds. prn BP meds T2DM SSI coverage Morbid obesity life style modification counselling Full code status Will continue to follow along. Thank you for this consultation.
[2021-04-28] MEDS ORDERED: hydrALAZINE 20 MG/ML SDV ONE (20:27)
[2021-04-28] MEDS ORDERED: hydrALAZINE 20 MG/ML SDV IVPUSH PRN (20:30)
[2021-04-28] MEDS ORDERED: EPINEPHrine 1 MG/1 ML Amp SUBCUT ONE (20:34)
[2021-04-28] MEDS ORDERED: Glucagon,Human Recombinant 1 MG Vial IM PRN (20:38)
[2021-04-28] MEDS ORDERED: 50% Dextrose in Water 50 ML Syringe IVPUSH PRN (20:38)
[2021-04-28] MEDS: Famotidine 20 MG Tab PO SCH (20:53)
[2021-04-28] MEDS ORDERED: EPINEPHrine 1 MG/ML SDV ONE (21:24)
[2021-04-28] MEDS: hydrALAZINE 25 MG Tab PO SCH (21:50)
[2021-04-29] MEDS: Acetaminophen/oxyCODONE 325-5 MG Tab PO PRN ×4 (02:41→22:34)
[2021-04-29] MEDS: hydrALAZINE 25 MG Tab PO SCH ×3 (05:36→21:22)
[2021-04-29] MEDS: Insulin Aspart 100 Units/ML 3 ML Pen SUBCUT SCH ×3 (06:38→18:10)
[2021-04-29 07:31] LABS: BLOOD UREA NITROGEN,BUN 17 mg/dL (7.0-18.0); CARBON DIOXIDE,CO2 25.3 mmol/L (21.0-32.0); CHLORIDE,CL 104 mmol/L (98-107); GLUCOSE RANDOM 112 mg/dL (74-106); POTASSIUM,K 4.4 mmol/L (3.5-5.1); SODIUM,NA 138 mmol/L (136-145)
[2021-04-29] MEDS: NIFEdipine 30 MG Tab.ER PO SCH (08:22)
[2021-04-29] MEDS: Docusate Sodium 100 MG Cap PO SCH ×2 (08:22→21:17)
[2021-04-29] MEDS: predniSONE 20 MG Tab PO SCH (08:23)
[2021-04-29] MEDS: Labetalol 100 MG Tab PO SCH ×2 (08:23→21:19)
[2021-04-29] MEDS: Famotidine 20 MG Tab PO SCH ×2 (08:23→21:17)
--- NOTE | 2021-04-29 10:20 | PCM.PNPP ---
- General Info Date of Service: 04/29/21 Functional Status: Reports: Pain Controlled - Review of Systems General: Reports: No Symptoms HEENT: Reports: No Symptoms Pulmonary: Reports: No Symptoms Cardiovascular: Reports: No Symptoms Gastrointestinal: Reports: No Symptoms Genitourinary: Reports: No Symptoms Musculoskeletal: Reports: No Symptoms Skin: Reports: No Symptoms Neurological: Reports: No Symptoms Psychiatric: Reports: No Symptoms - General Info Date of Service: 04/29/21 - Patient Data Vital Signs - Most Recent: Last Vital Signs Temp 36.4 C 04/29/21 08:00 Pulse 98 04/29/21 08:23 Resp 34 H 04/29/21 10:00 BP 163/88 H 04/29/21 10:00 Pulse Ox 96 04/29/21 10:00 Weight - Most Recent: 124.4 kg I&O - Last 24 Hours: Intake & Output 04/28/21 04/29/21 04/29/21 22:59 06:59 14:59 Intake Total 625 600 Output Total 252 550 Balance 373 50 Lab Results - Last 24 Hours: Laboratory Results - last 24 hr 04/28/21 04/28/21 04/28/21 Range/Units 11:06 11:11 12:45 WBC 7.47 (4.0-11.0) K/uL RBC 3.74 L (4.30-5.90) M/uL Hgb 9.9 L (12.0-16.0) g/dL Hct 30.7 L (36.0-46.0) % MCV 82.1 (80.0-98.0) fL MCH 26.5 L (27.0-32.0) pg MCHC 32.2 (31.0-37.0) g/dL RDW Std Deviation 42.3 (28.0-62.0) fl RDW Coeff of Zoila 14 (11.0-15.0) % Plt Count 131 L (150-400) K/uL MPV (7.40-12.00) fL Neut % (Auto) 64.3 (48.0-80.0) % Lymph % (Auto) 24.6 (16.0-40.0) % [place] % (Auto) 10.2 (0.0-15.0) % Eos % (Auto) 0.8 (0.0-7.0) % Baso % (Auto) 0.1 (0.0-1.5) % Neut # (Auto) 4.8 (1.4-5.7) K/uL Lymph # (Auto) 1.8 (0.6-2.4) K/uL [place] # (Auto) 0.8 (0.0-0.8) K/uL Eos # (Auto) 0.1 (0.0-0.7) K/uL Baso # (Auto) 0.0 (0.0-0.1) K/uL Add Manual Diff Neutrophils % (Manual) (48.0-80.0) % Band Neutrophils % % Lymphocytes % (Manual) (16.0-40.0) % Monocytes % (Manual) (0.0-15.0) % Nucleated RBC % 0.0 /100WBC Absolute Seg Neuts (1.4-5.7) Band Neutrophils # Lymphocytes # (Manual) (0.6-2.4) Monocytes # (Manual) (0.0-0.8) Nucleated RBCs # 0 K/uL Hypersegmented Neuts Giant Platelets INR Fibrinogen (215-411) mg/dL Sodium (136-145) mmol/L Potassium (3.5-5.1) mmol/L Chloride (98-107) mmol/L Carbon Dioxide (21.0-32.0) mmol/L BUN (7.0-18.0) mg/dL Creatinine (0.6-1.0) mg/dL Est Cr Clr Drug Dosing mL/min Estimated GFR (MDRD) ml/min Glucose (74-106) mg/dL POC Glucose 80 (70-99) mg/dL Calcium (8.5-10.1) mg/dL Total Bilirubin (0.2-1.0) mg/dL AST (15-37) IU/L ALT (14-63) IU/L Alkaline Phosphatase (46-116) U/L Total Protein (6.4-8.2) g/dL Albumin (3.4-5.0) g/dL Globulin (2.6-4.0) g/dL Albumin/Globulin Ratio (0.9-1.6) Rhogam Indicated NO,MOM ANTI-D 04/28/21 04/28/21 04/28/21 Range/Units 13:57 13:57 13:57 WBC 6.21 (4.0-11.0) K/uL RBC 3.48 L (4.30-5.90) M/uL Hgb 9.2 L (12.0-16.0) g/dL Hct 28.8 L (36.0-46.0) % MCV 82.8 (80.0-98.0) fL MCH 26.4 L (27.0-32.0) pg MCHC 31.9 (31.0-37.0) g/dL RDW Std Deviation 42.6 (28.0-62.0) fl RDW Coeff of Zoila 14 (11.0-15.0) % Plt Count 121 L (150-400) K/uL MPV (7.40-12.00) fL Neut % (Auto) 61.8 (48.0-80.0) % Lymph % (Auto) 26.2 (16.0-40.0) % [place] % (Auto) 10.8 (0.0-15.0) % Eos % (Auto) 1.0 (0.0-7.0) % Baso % (Auto) 0.2 (0.0-1.5) % Neut # (Auto) 3.8 (1.4-5.7) K/uL Lymph # (Auto) 1.6 (0.6-2.4) K/uL [place] # (Auto) 0.7 (0.0-0.8) K/uL Eos # (Auto) 0.1 (0.0-0.7) K/uL Baso # (Auto) 0.0 (0.0-0.1) K/uL Add Manual Diff Neutrophils % (Manual) (48.0-80.0) % Band Neutrophils % % Lymphocytes % (Manual) (16.0-40.0) % Monocytes % (Manual) (0.0-15.0) % Nucleated RBC % 0.0 /100WBC Absolute Seg Neuts (1.4-5.7) Band Neutrophils # Lymphocytes # (Manual) (0.6-2.4) Monocytes # (Manual) (0.0-0.8) Nucleated RBCs # 0 K/uL Hypersegmented Neuts Giant Platelets INR 0.99 Fibrinogen 407 (215-411) mg/dL Sodium 139 (136-145) mmol/L Potassium 3.7 (3.5-5.1) mmol/L Chloride 107 (98-107) mmol/L Carbon Dioxide 25.8 (21.0-32.0) mmol/L BUN 14 (7.0-18.0) mg/dL Creatinine 0.8 (0.6-1.0) mg/dL Est Cr Clr Drug Dosing 104.53 mL/min Estimated GFR (MDRD) > 60.0 ml/min Glucose 88 (74-106) mg/dL POC Glucose (70-99) mg/dL Calcium 7.9 L (8.5-10.1) mg/dL Total Bilirubin 0.2 (0.2-1.0) mg/dL AST 13 L (15-37) IU/L ALT 16 (14-63) IU/L Alkaline Phosphatase 134 H (46-116) U/L Total Protein 6.0 L (6.4-8.2) g/dL Albumin 1.7 L (3.4-5.0) g/dL Globulin 4.3 H (2.6-4.0) g/dL Albumin/Globulin Ratio 0.4 L (0.9-1.6) Rhogam Indicated 04/28/21 04/29/21 04/29/21 Range/Units 19:26 06:33 06:34 WBC 11.55 H (4.0-11.0) K/uL RBC 2.89 L (4.30-5.90) M/uL Hgb 7.7 L (12.0-16.0) g/dL Hct 23.8 L (36.0-46.0) % MCV 82.4 (80.0-98.0) fL MCH 26.6 L (27.0-32.0) pg MCHC 32.4 (31.0-37.0) g/dL RDW Std Deviation 42.7 (28.0-62.0) fl RDW Coeff of Zoila 14 (11.0-15.0) % Plt Count 140 L (150-400) K/uL MPV 13.80 H (7.40-12.00) fL Neut % (Auto) (48.0-80.0) % Lymph % (Auto) (16.0-40.0) % [place] % (Auto) (0.0-15.0) % Eos % (Auto) (0.0-7.0) % Baso % (Auto) (0.0-1.5) % Neut # (Auto) (1.4-5.7) K/uL Lymph # (Auto) (0.6-2.4) K/uL [place] # (Auto) (0.0-0.8) K/uL Eos # (Auto) (0.0-0.7) K/uL Baso # (Auto) (0.0-0.1) K/uL Add Manual Diff YES Neutrophils % (Manual) 75 (48.0-80.0) % Band Neutrophils % 1 % Lymphocytes % (Manual) 17 (16.0-40.0) % Monocytes % (Manual) 7 (0.0-15.0) % Nucleated RBC % 0.0 /100WBC Absolute Seg Neuts 8.7 H (1.4-5.7) Band Neutrophils # 0.1 Lymphocytes # (Manual) 2.0 (0.6-2.4) Monocytes # (Manual) 0.8 (0.0-0.8) Nucleated RBCs # 0 K/uL Hypersegmented Neuts FEW Giant Platelets OCCASIONAL INR Fibrinogen (215-411) mg/dL Sodium 139 (136-145) mmol/L Potassium 4.6 (3.5-5.1) mmol/L Chloride 106 (98-107) mmol/L Carbon Dioxide 24.7 (21.0-32.0) mmol/L BUN 17 (7.0-18.0) mg/dL Creatinine 0.8 (0.6-1.0) mg/dL Est Cr Clr Drug Dosing 104.53 mL/min Estimated GFR (MDRD) > 60.0 ml/min Glucose 95 (74-106) mg/dL POC Glucose 99 (70-99) mg/dL Calcium 7.8 L (8.5-10.1) mg/dL Total Bilirubin (0.2-1.0) mg/dL AST (15-37) IU/L ALT (14-63) IU/L Alkaline Phosphatase (46-116) U/L Total Protein (6.4-8.2) g/dL Albumin (3.4-5.0) g/dL Globulin (2.6-4.0) g/dL Albumin/Globulin Ratio (0.9-1.6) Rhogam Indicated 04/29/21 Range/Units 06:34 WBC (4.0-11.0) K/uL RBC (4.30-5.90) M/uL Hgb (12.0-16.0) g/dL Hct (36.0-46.0) % MCV (80.0-98.0) fL MCH (27.0-32.0) pg MCHC (31.0-37.0) g/dL RDW Std Deviation (28.0-62.0) fl RDW Coeff of Zoila (11.0-15.0) % Plt Count (150-400) K/uL MPV (7.40-12.00) fL Neut % (Auto) (48.0-80.0) % Lymph % (Auto) (16.0-40.0) % [place] % (Auto) (0.0-15.0) % Eos % (Auto) (0.0-7.0) % Baso % (Auto) (0.0-1.5) % Neut # (Auto) (1.4-5.7) K/uL Lymph # (Auto) (0.6-2.4) K/uL [place] # (Auto) (0.0-0.8) K/uL Eos # (Auto) (0.0-0.7) K/uL Baso # (Auto) (0.0-0.1) K/uL Add Manual Diff Neutrophils % (Manual) (48.0-80.0) % Band Neutrophils % % Lymphocytes % (Manual) (16.0-40.0) % Monocytes % (Manual) (0.0-15.0) % Nucleated RBC % /100WBC Absolute Seg Neuts (1.4-5.7) Band Neutrophils # Lymphocytes # (Manual) (0.6-2.4) Monocytes # (Manual) (0.0-0.8) Nucleated RBCs # K/uL Hypersegmented Neuts Giant Platelets INR Fibrinogen (215-411) mg/dL Sodium 138 (136-145) mmol/L Potassium 4.4 (3.5-5.1) mmol/L Chloride 104 (98-107) mmol/L Carbon Dioxide 25.3 (21.0-32.0) mmol/L BUN 17 (7.0-18.0) mg/dL Creatinine 1.0 (0.6-1.0) mg/dL Est Cr Clr Drug Dosing 83.62 mL/min Estimated GFR (MDRD) > 60.0 ml/min Glucose 112 H (74-106) mg/dL POC Glucose (70-99) mg/dL Calcium 8.0 L (8.5-10.1) mg/dL Total Bilirubin (0.2-1.0) mg/dL AST (15-37) IU/L ALT (14-63) IU/L Alkaline Phosphatase (46-116) U/L Total Protein (6.4-8.2) g/dL Albumin (3.4-5.0) g/dL Globulin (2.6-4.0) g/dL Albumin/Globulin Ratio (0.9-1.6) Rhogam Indicated Med Orders - Current: Current Medications Bisacodyl (Bisacodyl 10 Mg Supp) 10 mg RECTAL ONETIME PRN PRN Reason: Constipation Butorphanol Tartrate (Butorphanol 1 Mg/Ml Sdv) 1 mg IVPUSH Q1H PRN PRN Reason: Pain (severe 7-10) Carboprost Tromethamine (Carboprost Tromethamine 250 Mcg/1 Ml Amp) 250 mcg IM ASDIRECTED PRN PRN Reason: Post Hemorrhage Dextrose/Water (50% Dextrose In Water 50 Ml Syringe) 50 ml IVPUSH ASDIRECTED PRN PRN Reason: Hypoglycemia Diphenhydramine HCl (Diphenhydramine 50 Mg/Ml Sdv) 25 mg IVPUSH Q6H PRN PRN Reason: Itching or Nausea Last Admin: 04/28/21 17:53 Dose: 25 mg Documented by: Docusate Sodium (Docusate Sodium 100 Mg Cap) 100 mg PO BID [facility] Last Admin: 04/29/21 08:22 Dose: 100 mg Documented by: Emollient Ointment (Lanolin 100% Cream 7 Gm Tube) 0 gm TOP ASDIRECTED PRN PRN Reason: Sore Nipples Famotidine (Famotidine 20 Mg Tab) 20 mg PO BID [facility] Last Admin: 04/29/21 08:23 Dose: 20 mg Documented by: Glucagon (Glucagon,Human Recombinant 1 Mg Vial) 1 mg IM ASDIRECTED PRN PRN Reason: Hypoglycemia Hydralazine HCl (Hydralazine 20 Mg/Ml Sdv) 5 mg IVPUSH ONETIME PRN; Protocol PRN Reason: Hypertension Last Admin: 04/28/21 20:38 Dose: 5 mg Documented by: Hydralazine HCl (Hydralazine 25 Mg Tab) 25 mg PO Q8H [facility] Last Admin: 04/29/21 05:36 Dose: 25 mg Documented by: Oxytocin/Sodium Chloride (Oxytocin 30 Unit In Ns 0.9% 500 Ml Premix) 30 unit in 500 mls @ 999 mls/hr IV TITRATE [facility] Tranexamic Acid 1,000 mg/ (Sodium Chloride) 110 mls @ 660 mls/hr IV ONETIME PRN PRN Reason: Bleeding Lactated Ringer's (Ringers, Lactated) 1,000 mls @ 150 mls/hr IV ASDIRECTED [facility] Last Admin: 04/28/21 07:41 Dose: 150 mls/hr Documented by: Lactated Ringer's (Ringers, Lactated) 1,000 mls @ 500 mls/hr IV BOLUS [facility] Last Admin: 04/28/21 11:39 Dose: 500 mls/hr Documented by: Oxytocin/Sodium Chloride (Oxytocin 30 Unit In Ns 0.9% 500 Ml Premix) 30 unit in 500 mls @ 250 mls/hr IV TITRATE [facility] Lactated Ringer's (Ringers, Lactated) 1,000 mls @ 125 mls/hr IV ASDIRECTED [facility] Tranexamic Acid 1,000 mg/ (Sodium Chloride) 110 mls @ 660 mls/hr IV ONETIME PRN PRN Reason: Bleeding Insulin Aspart (Insulin Aspart 100 Units/Ml 3 Ml Pen) 0 unit SUBCUT TIDAC [facility]; Protocol Last Admin: 04/29/21 06:38 Dose: Not Given Documented by: Labetalol HCl (Labetalol 100 Mg/20 Ml Mdv) 40 mg IVPUSH ONETIME PRN; Protocol PRN Reason: Hypertension Last Admin: 04/28/21 03:15 Dose: 40 mg Documented by: Labetalol HCl (Labetalol 100 Mg/20 Ml Mdv) 20 mg IVPUSH ONETIME PRN; Protocol PRN Reason: Hypertension Last Admin: 04/28/21 02:18 Dose: 20 mg Documented by: Labetalol HCl (Labetalol 100 Mg Tab) 300 mg PO BID [facility] Last Admin: 04/29/21 08:23 Dose: 300 mg Documented by: Lidocaine HCl (Lidocaine 1% 50 Ml Mdv) 50 ml INJECT ONETIME PRN PRN Reason: Laceration repair Methylergonovine Maleate (Methylergonovine 0.2 Mg/1 Ml Amp) 0.2 mg IM ASDIRECTED PRN PRN Reason: Post Hemorrhage Methylergonovine Maleate (Methylergonovine 0.2 Mg/1 Ml Amp) 0.2 mg IM ONETIME PRN PRN Reason: Excessive Vaginal Bleeding Misoprostol (Misoprostol 200 Mcg Tab) 200 mcg PO ONETIME PRN PRN Reason: Post Hemorrhage Misoprostol (Misoprostol 200 Mcg Tab) 1,000 mcg RECTAL ONETIME PRN PRN Reason: excessive bleeding Nalbuphine HCl (Nalbuphine 10 Mg/1 Ml Vial) 10 mg IVPUSH Q1H PRN PRN Reason: Pain (severe 7-10) Nifedipine (Nifedipine 30 Mg Tab.Er) 30 mg PO DAILY [facility] Last Admin: 04/29/21 08:22 Dose: 30 mg Documented by: Ondansetron HCl (Ondansetron 4 Mg/2 Ml Sdv) 4 mg IVPUSH Q4H PRN PRN Reason: Nausea/Vomiting Oxycodone/Acetaminophen (Acetaminophen/Oxycodone 325-5 Mg Tab) 1 tab PO Q4H PRN PRN Reason: Pain (severe 7-10) Last Admin: 04/28/21 22:06 Dose: 1 tab Documented by: Oxycodone/Acetaminophen (Acetaminophen/Oxycodone 325-5 Mg Tab) 2 tab PO Q4H PRN PRN Reason: Pain (severe 7-10) Last Admin: 04/29/21 02:41 Dose: 2 tab Documented by: Oxytocin (Oxytocin 10 Units/1 Ml Sdv) 10 unit IM ASDIRECTED PRN PRN Reason: Excessive Vaginal Bleeding Prednisone (Prednisone 20 Mg Tab) 40 mg PO DAILY [facility] Last Admin: 04/29/21 08:23 Dose: 40 mg Documented by: Sodium Chloride (Sodium Chloride 0.9% 10 Ml Syringe) 10 ml FLUSH ASDIRECTED PRN PRN Reason: Keep Vein Open Sodium Chloride (Sodium Chloride 0.9% 2.5 Ml Syringe) 2.5 ml FLUSH ASDIRECTED PRN PRN Reason: Keep Vein Open Sodium Chloride (Sodium Chloride 0.9% 20 Ml Sdv) 10 ml IV ASDIRECTED PRN PRN Reason: IV Use Sodium Chloride (Sodium Chloride 0.9% 10 Ml Syringe) 10 ml FLUSH ASDIRECTED PRN PRN Reason: Keep Vein Open Sodium Chloride (Sodium Chloride 0.9% 2.5 Ml Syringe) 2.5 ml FLUSH ASDIRECTED PRN PRN Reason: Keep Vein Open Sodium Chloride (Sodium Chloride 0.9% 20 Ml Sdv) 10 ml IV ASDIRECTED PRN PRN Reason: IV Use Sterile Water (Water For Irrigation,Sterile 1,000 Ml Container) 1,000 ml IRR ASDIRECTED PRN PRN Reason: delivery Discontinued Medications Citric Acid/Sodium Citrate (Citric Acid/Sodium Citrate Solution 30 Ml Cup) 30 ml PO ONETIME ONE Stop: 04/28/21 09:21 Last Admin: 04/28/21 11:13 Dose: 30 ml Documented by: Dexamethasone (Dexamethasone 10 Mg/Ml Sdv) 8 mg IVPUSH ONETIME ONE Stop: 04/28/21 18:01 Last Admin: 04/28/21 18:06 Dose: 8 mg Documented by: Epinephrine HCl (Epinephrine 1 Mg/1 Ml Amp) 0.3 mg SUBCUT ONETIME ONE Stop: 04/28/21 20:35 Last Admin: 04/28/21 21:50 Dose: 0.3 mg Documented by: Epinephrine HCl (Epinephrine 1 Mg/Ml Sdv) Confirm Administered Dose 1 mg .ROUTE .STK-MED ONE Stop: 04/28/21 21:25 Last Admin: 04/28/21 21:50 Dose: Not Given Documented by: Famotidine (Famotidine 20 Mg/2 Ml Sdv) 20 mg IVPUSH ONETIME ONE Stop: 04/28/21 11:01 Last Admin: 04/28/21 11:40 Dose: 20 mg Documented by: Fentanyl (Fentanyl 100 Mcg/2 Ml Sdv) Confirm Administered Dose 100 mcg .ROUTE .STK-MED ONE Stop: 04/28/21 11:46 Furosemide (Furosemide 20 Mg/2 Ml Vial) 20 mg IVPUSH ONETIME ONE Stop: 04/28/21 17:16 Last Admin: 04/28/21 17:10 Dose: 20 mg Documented by: Hydralazine HCl (Hydralazine 20 Mg/Ml Sdv) 10 mg IVPUSH ONETIME PRN PRN Reason: Hypertension Last Admin: 04/28/21 15:06 Dose: 10 mg Documented by: Hydralazine HCl (Hydralazine 20 Mg/Ml Sdv) Confirm Administered Dose 20 mg .ROUTE .STK-MED ONE Stop: 04/28/21 20:28 Last Admin: 04/28/21 20:38 Dose: Not Given Documented by: Cefazolin Sodium/Dextrose 2 gm / Cefazolin Sodium/Dextrose 1 gm/ Premix 100 mls @ 200 mls/hr IV ONETIME ONE Stop: 04/28/21 09:54 Last Admin: 04/28/21 12:01 Dose: 200 mls/hr Documented by: Ibuprofen (Ibuprofen 800 Mg Tab) 800 mg PO Q8H PRN PRN Reason: Cramping Ketorolac Tromethamine (Ketorolac 30 Mg/Ml Sdv) 30 mg IVPUSH Q6H DUC Stop: 04/29/21 13:31 Last Admin: 04/28/21 17:11 Dose: 30 mg Documented by: Labetalol HCl (Labetalol 100 Mg Tab) 200 mg PO ONETIME ONE Stop: 04/27/21 21:00 Last Admin: 04/27/21 21:14 Dose: 200 mg Documented by: Labetalol HCl (Labetalol 100 Mg/20 Ml Mdv) 20 mg IVPUSH ONETIME ONE; Protocol Stop: 04/27/21 21:01 Last Admin: 04/27/21 21:17 Dose: 20 mg Documented by: Labetalol HCl (Labetalol 100 Mg/20 Ml Mdv) 40 mg IVPUSH ONETIME ONE; Protocol Stop: 04/27/21 21:31 Last Admin: 04/27/21 21:33 Dose: 40 mg Documented by: Labetalol HCl (Labetalol 100 Mg/20 Ml Mdv) 80 mg IVPUSH ONETIME ONE; Protocol Stop: 04/27/21 21:55 Last Admin: 04/27/21 23:18 Dose: 80 mg Documented by: Labetalol HCl (Labetalol 100 Mg/20 Ml Mdv) 20 mg IVPUSH ONETIME ONE; Protocol Stop: 04/27/21 22:36 Last Admin: 04/27/21 22:37 Dose: 20 mg Documented by: Ondansetron HCl (Ondansetron 4 Mg/2 Ml Sdv) 4 mg IVPUSH Q4H PRN PRN Reason: Nausea/Vomiting Oxytocin (Oxytocin 10 Units/1 Ml Sdv) Confirm Administered Dose 50 unit .ROUTE .STK-MED ONE Stop: 04/28/21 13:51 Phenylephrine HCl (Phenylephrine 1% 10 Mg/Ml Sdv) Confirm Administered Dose 10 mg .ROUTE .STK-MED ONE Stop: 04/28/21 13:50 - Infant Interaction Support Person: - Recovery Exam Fundal Tone: Firm Fundal Level: 1 Fingerbreadths Below Umbilicus Fundal Placement: Midline Lochia Amount: Scant Lochia Color: Rubra/Red Perineum Description: Intact, Minimal Bruising/Swelling Episiotomy/Laceration: None Bladder Status: Indwelling Catheter in Place Urinary Elimination: Indwelling Catheter - Exam General: Alert, Oriented HEENT: Pupils Equal Neck: Supple Lungs: Clear to Auscultation, Normal Respiratory Effort Cardiovascular: Regular Rate, Regular Rhythm GI/Abdominal Exam: Normal Bowel Sounds, Soft, Non-Tender, No Organomegaly, No Distention, No Abnormal Bruit, No Mass, Pelvis Stable Extremities: Normal Inspection, Normal Range of Motion, Non-Tender, No Pedal Edema, Normal Capillary Refill Skin: Warm, Dry, Intact Wound/Incisions: Healing Well Neurological: No New Focal Deficit Psy/Mental Status: Alert, Normal Affect, Normal Mood - Problem List Review Problem List Initiated/Reviewed/Updated: Yes - My Orders Last 24 Hours: My Active Orders 04/28/21 09:20 Insert Urinary Catheter [OM.PC] Routine Up ad Paulette [RC] ASDIRECTED Vital Signs [RC] PER UNIT ROUTINE Sodium Chloride 0.9% [Normal Saline] 10 ml IV ASDIRECTED PRN Sodium Chloride 0.9% [Saline Flush] 10 ml FLUSH ASDIRECTED PRN Sodium Chloride 0.9% [Saline Flush] 2.5 ml FLUSH ASDIRECTED PRN Peripheral IV Insertion Adult [OM.PC] Routine Schedule Procedure [COMM] Per Unit Routine Sequential Compression Device [OM.PC] Routine 04/28/21 09:21 Antiembolic Devices [RC] Q12H Urinary Catheter Assessment [RC] Q4H 04/28/21 09:23 Notify Provider Vital Signs [RC] PRN 04/28/21 09:30 Lactated Ringers [Ringers, Lactated] 1,000 ml IV BOLUS Oxytocin/0.9 % Sodium Chloride [Oxytocin 30 Unit in NS 0.9% 500 ML Premix] 30 unit in 500 ml IV TITRATE 04/28/21 13:16 Patient Status [ADT] Routine Ambulate [RC] PER UNIT ROUTINE Communication Order [RC] PER UNIT ROUTINE Communication Order [RC] PER UNIT ROUTINE Communication Order [RC] Per Unit Routine May Shower [RC] ASDIRECTED RT Incentive Spirometry [RC] Q2HWA Vital Signs [RC] Q1H Acetaminophen/oxyCODONE [Percocet 325-5 MG] 1 tab PO Q4H PRN Acetaminophen/oxyCODONE [Percocet 325-5 MG] 2 tab PO Q4H PRN Lanolin [Lansinoh HPA] See Dose Instructions TOP ASDIRECTED PRN Methylergonovine [Methergine] 0.2 mg IM ONETIME PRN Ondansetron [Zofran] 4 mg IVPUSH Q4H PRN Oxytocin [Pitocin] 10 unit IM ASDIRECTED PRN Tranexamic Acid [Cyklokapron] 1,000 mg Sodium Chloride 0.9% [Normal Saline] 100 ml IV ONETIME bisacodyL [Dulcolax] 10 mg RECTAL ONETIME PRN diphenhydrAMINE [Benadryl] 25 mg IVPUSH Q6H PRN miSOPROStoL [Cytotec] 1,000 mcg RECTAL ONETIME PRN Assess Lochia [WOMSER] Per Unit Routine Assess Uterine Involution [WOMSER] Per Unit Routine Breast Pump [WOMSER] Per Unit Routine Peripheral IV Discontinue [OM.PC] Routine Sequential Compression Device [OM.PC] Per Unit Routine 04/28/21 13:17 Antiembolic Devices [RC] PER UNIT ROUTINE 04/28/21 13:30 Lactated Ringers [Ringers, Lactated] 1,000 ml IV ASDIRECTED 04/28/21 19:00 Consult to Physician [CONS] Routine 04/28/21 20:30 hydrALAZINE [Apresoline] 5 mg IVPUSH ONETIME PRN 04/28/21 21:00 Docusate Sodium [Colace] 100 mg PO BID 04/29/21 01:29 Notify Provider Consults [RC] ASDIRECTED 04/29/21 10:06 Transfer Patient (Change bed) [ADT] Routine - Assessment Assessment:: Chest is clear. O2 saturation is 100%. will transfer back Juan&d. I am giving her 20 mg of Lasix iv. - Plan Plan:: For 31 years old patient multipurpose have multiple section before the patient have chronic hypertension prior to getting and she was on medication we continued her medication she was followed according to the high- risk protocol. She is 37+3 weeks she saw the press loader in consultation yesterday blood pressure is extremely elevated she was admitted she was putting on IV medication to lower her blood pressure and in consultation and based on the recommendation of the press loader we elected to do her section today instead of next week I explained this finding and the rationale to the patient and her .
[2021-04-29] MEDS ORDERED: Furosemide 20 MG/2 ML VIAL IVPUSH ONE (11:30)
[2021-04-29] MEDS ORDERED: NIFEdipine 30 MG Tab.ER PO ONE (15:00)
[2021-04-29] MEDS: Labetalol 100 MG/20 ML MDV IVPUSH PRN ×4 (15:20→22:11)
--- NOTE | 2021-04-29 20:51 | OR ---
SURGEON: Rosalio Trevino MD DATE OF PROCEDURE: 04/28/2021 PREOPERATIVE DIAGNOSES: 1. Intrauterine at 37 and +3. 2. Chronic hypertension. 3. Previous section x4. POSTOPERATIVE DIAGNOSES: 1. Intrauterine at 37 and +3. 2. Chronic hypertension. 3. Previous section x4. OPERATION PERFORMED: Repeat low transverse section. PRIMARY SURGEON: Rosalio Trevino MD SOFTWARE SALES REPRESENTATIVE: Kaci Rodriguez. ANESTHESIA: Spinal. ESTIMATED BLOOD LOSS: 1000 mL. COMPLICATIONS: None. FINDINGS: Male fetus. score of 7 and 8, and weight . Meconium-stained amniotic fluid is noticed. INDICATION FOR SURGERY: This patient is 31. She is para 4-0-0-4. She had multiple sections before. She is followed in the office. She has chronic hypertension. She is on medication for her high blood pressure. However, the patient is noncompliant. The patient saw her sports attorney yesterday. She had an echo and her blood pressure was extremely elevated and based on the advice of the sports attorney, and I agreed with it, that the patient needs to be delivered. She was scheduled for repeat section next week, however, we are going to move her section to be done today. PROCEDURE IN DETAIL: Patient brought to the OR, properly identified, and after adequate level of spinal anesthesia with a Shaw catheter, patient was prepped and draped in sterile fashion as usual. A midline skin incision excising the old scar was done. The Sergey fascia and rectus fascia were opened in direction of the incision and the peritoneal cavity was entered. Then, carefully assessing the adhesions in the lower uterine segment and then bladder flap was developed pushing the bladder completely away from the operative field. Then, a low transverse uterine incision was done. The fetus was in a vertex position and meconium-stained amniotic fluid. Fetus delivered without any problem, handed to the resuscitating team. The score reported to be 7 and 8, and the weight was . The placenta delivered spontaneous, complete, and intact. Repair of the lower uterine segment was done with 2-0 Vicryl continuous interlocking in two layers. Inspection of the operative field showed an area of oozing in the left corner of the incision. Using 2-0 Vicryl [id number] was applied and the bleeding stopped. Again, inspection of the lower uterine segment showed no oozing, no bleeding. Then, the peritoneal cavity evacuated completely from all blood and blood clot and closed in the midline with 2-0 PDS double strand continuous, Sergey fascia with 3-0 Vicryl continuous, the skin closed with 3-0 in a subcuticular fashion. The instrument and sponge count were correct. The patient tolerated the procedure well, went to recovery room in stable general condition. RICHARD / MAURIZIO /[id number]
[2021-04-29] MEDS ORDERED: Labetalol 100 MG/20 ML MDV ONE (22:05)
[2021-04-30] MEDS: Labetalol 100 MG/20 ML MDV IVPUSH PRN ×4 (03:57→22:43)
[2021-04-30] MEDS: hydrALAZINE 25 MG Tab PO SCH ×3 (05:12→21:17)
[2021-04-30] MEDS: Insulin Aspart 100 Units/ML 3 ML Pen SUBCUT SCH ×3 (07:31→19:03)
[2021-04-30] MEDS: Docusate Sodium 100 MG Cap PO SCH ×2 (08:31→21:17)
[2021-04-30] MEDS: Famotidine 20 MG Tab PO SCH ×2 (08:31→21:17)
[2021-04-30] MEDS: predniSONE 20 MG Tab PO SCH (08:32)
[2021-04-30 08:42] LABS: BLOOD UREA NITROGEN,BUN 14 mg/dL (7.0-18.0); CARBON DIOXIDE,CO2 25.1 mmol/L (21.0-32.0); CHLORIDE,CL 106 mmol/L (98-107); GLUCOSE RANDOM 82 mg/dL (74-106); SODIUM,NA 141 mmol/L (136-145)
[2021-04-30] MEDS: NIFEdipine 30 MG Tab.ER PO SCH (09:04)
[2021-04-30] MEDS: Labetalol 100 MG Tab PO SCH ×2 (09:05→21:16)
--- NOTE | 2021-04-30 10:47 | PCM.PNPP ---
- General Info Date of Service: 04/30/21 Functional Status: Reports: Pain Controlled - Review of Systems General: Reports: No Symptoms HEENT: Reports: No Symptoms Pulmonary: Reports: No Symptoms Cardiovascular: Reports: No Symptoms Gastrointestinal: Reports: No Symptoms Genitourinary: Reports: No Symptoms Musculoskeletal: Reports: No Symptoms Skin: Reports: No Symptoms Neurological: Reports: No Symptoms Psychiatric: Reports: No Symptoms - General Info Date of Service: 04/30/21 - Patient Data Vital Signs - Most Recent: Last Vital Signs Temp 36.9 C 04/30/21 07:00 Pulse 97 04/30/21 09:05 Resp 26 H 04/30/21 09:00 BP 146/85 H 04/30/21 09:05 Pulse Ox 98 04/30/21 09:00 Weight - Most Recent: 124.4 kg I&O - Last 24 Hours: Intake & Output 04/29/21 04/30/21 04/30/21 22:59 06:59 14:59 Intake Total 1200 Output Total 3875 1000 Balance -2675 -1000 Lab Results - Last 24 Hours: Laboratory Results - last 24 hr 04/29/21 04/29/21 04/30/21 Range/Units 11:35 17:53 07:19 WBC (4.0-11.0) K/uL RBC (4.30-5.90) M/uL Hgb (12.0-16.0) g/dL Hct (36.0-46.0) % MCV (80.0-98.0) fL MCH (27.0-32.0) pg MCHC (31.0-37.0) g/dL RDW Std Deviation (28.0-62.0) fl RDW Coeff of Zoila (11.0-15.0) % Plt Count (150-400) K/uL MPV (7.40-12.00) fL Nucleated RBC % /100WBC Nucleated RBCs # K/uL Sodium (136-145) mmol/L Potassium (3.5-5.1) mmol/L Chloride (98-107) mmol/L Carbon Dioxide (21.0-32.0) mmol/L BUN (7.0-18.0) mg/dL Creatinine (0.6-1.0) mg/dL Est Cr Clr Drug Dosing mL/min Estimated GFR (MDRD) ml/min Glucose (74-106) mg/dL POC Glucose 118 H 97 83 (70-99) mg/dL Calcium (8.5-10.1) mg/dL Total Bilirubin (0.2-1.0) mg/dL AST (15-37) IU/L ALT (14-63) IU/L Alkaline Phosphatase (46-116) U/L Total Protein (6.4-8.2) g/dL Albumin (3.4-5.0) g/dL Globulin (2.6-4.0) g/dL Albumin/Globulin Ratio (0.9-1.6) 04/30/21 04/30/21 Range/Units 07:58 07:58 WBC 11.07 H (4.0-11.0) K/uL RBC 2.66 L (4.30-5.90) M/uL Hgb 7.0 L (12.0-16.0) g/dL Hct 22.0 L (36.0-46.0) % MCV 82.7 (80.0-98.0) fL MCH 26.3 L (27.0-32.0) pg MCHC 31.8 (31.0-37.0) g/dL RDW Std Deviation 43.9 (28.0-62.0) fl RDW Coeff of Zoila 15 (11.0-15.0) % Plt Count 118 L (150-400) K/uL MPV 13.00 H (7.40-12.00) fL Nucleated RBC % 0.0 /100WBC Nucleated RBCs # 0 K/uL Sodium 141 (136-145) mmol/L Potassium 4.0 (3.5-5.1) mmol/L Chloride 106 (98-107) mmol/L Carbon Dioxide 25.1 (21.0-32.0) mmol/L BUN 14 (7.0-18.0) mg/dL Creatinine 0.7 (0.6-1.0) mg/dL Est Cr Clr Drug Dosing 119.46 mL/min Estimated GFR (MDRD) > 60.0 ml/min Glucose 82 (74-106) mg/dL POC Glucose (70-99) mg/dL Calcium 8.0 L (8.5-10.1) mg/dL Total Bilirubin 0.2 (0.2-1.0) mg/dL AST 13 L (15-37) IU/L ALT 11 L (14-63) IU/L Alkaline Phosphatase 126 H (46-116) U/L Total Protein 6.3 L (6.4-8.2) g/dL Albumin 2.0 L (3.4-5.0) g/dL Globulin 4.3 H (2.6-4.0) g/dL Albumin/Globulin Ratio 0.5 L (0.9-1.6) Med Orders - Current: Current Medications Bisacodyl (Bisacodyl 10 Mg Supp) 10 mg RECTAL ONETIME PRN PRN Reason: Constipation Butorphanol Tartrate (Butorphanol 1 Mg/Ml Sdv) 1 mg IVPUSH Q1H PRN PRN Reason: Pain (severe 7-10) Carboprost Tromethamine (Carboprost Tromethamine 250 Mcg/1 Ml Amp) 250 mcg IM ASDIRECTED PRN PRN Reason: Post Hemorrhage Dextrose/Water (50% Dextrose In Water 50 Ml Syringe) 50 ml IVPUSH ASDIRECTED PRN PRN Reason: Hypoglycemia Diphenhydramine HCl (Diphenhydramine 50 Mg/Ml Sdv) 25 mg IVPUSH Q6H PRN PRN Reason: Itching or Nausea Last Admin: 04/28/21 17:53 Dose: 25 mg Documented by: Docusate Sodium (Docusate Sodium 100 Mg Cap) 100 mg PO BID [facility] Last Admin: 04/30/21 08:31 Dose: 100 mg Documented by: Emollient Ointment (Lanolin 100% Cream 7 Gm Tube) 0 gm TOP ASDIRECTED PRN PRN Reason: Sore Nipples Famotidine (Famotidine 20 Mg Tab) 20 mg PO BID [facility] Last Admin: 04/30/21 08:31 Dose: 20 mg Documented by: Glucagon (Glucagon,Human Recombinant 1 Mg Vial) 1 mg IM ASDIRECTED PRN PRN Reason: Hypoglycemia Hydralazine HCl (Hydralazine 20 Mg/Ml Sdv) 5 mg IVPUSH ONETIME PRN; Protocol PRN Reason: Hypertension Last Admin: 04/28/21 20:38 Dose: 5 mg Documented by: Hydralazine HCl (Hydralazine 25 Mg Tab) 25 mg PO Q8H [facility] Last Admin: 04/30/21 05:12 Dose: 25 mg Documented by: Oxytocin/Sodium Chloride (Oxytocin 30 Unit In Ns 0.9% 500 Ml Premix) 30 unit in 500 mls @ 999 mls/hr IV TITRATE [facility] Tranexamic Acid 1,000 mg/ (Sodium Chloride) 110 mls @ 660 mls/hr IV ONETIME PRN PRN Reason: Bleeding Lactated Ringer's (Ringers, Lactated) 1,000 mls @ 150 mls/hr IV ASDIRECTED DUC Last Admin: 04/28/21 07:41 Dose: 150 mls/hr Documented by: Lactated Ringer's (Ringers, Lactated) 1,000 mls @ 500 mls/hr IV BOLUS [facility] Last Admin: 04/28/21 11:39 Dose: 500 mls/hr Documented by: Oxytocin/Sodium Chloride (Oxytocin 30 Unit In Ns 0.9% 500 Ml Premix) 30 unit in 500 mls @ 250 mls/hr IV TITRATE [facility] Lactated Ringer's (Ringers, Lactated) 1,000 mls @ 125 mls/hr IV ASDIRECTED [facility] Tranexamic Acid 1,000 mg/ (Sodium Chloride) 110 mls @ 660 mls/hr IV ONETIME PRN PRN Reason: Bleeding Insulin Aspart (Insulin Aspart 100 Units/Ml 3 Ml Pen) 0 unit SUBCUT TIDAC [facility]; Protocol Last Admin: 04/30/21 07:31 Dose: Not Given Documented by: Labetalol HCl (Labetalol 100 Mg/20 Ml Mdv) 40 mg IVPUSH ONETIME PRN; Protocol PRN Reason: Hypertension Last Admin: 04/30/21 04:52 Dose: 40 mg Documented by: Labetalol HCl (Labetalol 100 Mg/20 Ml Mdv) 20 mg IVPUSH ONETIME PRN; Protocol PRN Reason: Hypertension Last Admin: 04/30/21 03:57 Dose: 20 mg Documented by: Labetalol HCl (Labetalol 100 Mg Tab) 400 mg PO BID [facility] Last Admin: 04/30/21 09:05 Dose: 400 mg Documented by: Lidocaine HCl (Lidocaine 1% 50 Ml Mdv) 50 ml INJECT ONETIME PRN PRN Reason: Laceration repair Methylergonovine Maleate (Methylergonovine 0.2 Mg/1 Ml Amp) 0.2 mg IM ASDIRECTED PRN PRN Reason: Post Hemorrhage Methylergonovine Maleate (Methylergonovine 0.2 Mg/1 Ml Amp) 0.2 mg IM ONETIME PRN PRN Reason: Excessive Vaginal Bleeding Misoprostol (Misoprostol 200 Mcg Tab) 200 mcg PO ONETIME PRN PRN Reason: Post Hemorrhage Misoprostol (Misoprostol 200 Mcg Tab) 1,000 mcg RECTAL ONETIME PRN PRN Reason: excessive bleeding Nalbuphine HCl (Nalbuphine 10 Mg/1 Ml Vial) 10 mg IVPUSH Q1H PRN PRN Reason: Pain (severe 7-10) Nifedipine (Nifedipine 30 Mg Tab.Er) 60 mg PO DAILY [facility] Last Admin: 04/30/21 09:04 Dose: 60 mg Documented by: Ondansetron HCl (Ondansetron 4 Mg/2 Ml Sdv) 4 mg IVPUSH Q4H PRN PRN Reason: Nausea/Vomiting Oxycodone/Acetaminophen (Acetaminophen/Oxycodone 325-5 Mg Tab) 1 tab PO Q4H PRN PRN Reason: Pain (severe 7-10) Last Admin: 04/28/21 22:06 Dose: 1 tab Documented by: Oxycodone/Acetaminophen (Acetaminophen/Oxycodone 325-5 Mg Tab) 2 tab PO Q4H PRN PRN Reason: Pain (severe 7-10) Last Admin: 04/29/21 22:34 Dose: 2 tab Documented by: Oxytocin (Oxytocin 10 Units/1 Ml Sdv) 10 unit IM ASDIRECTED PRN PRN Reason: Excessive Vaginal Bleeding Prednisone (Prednisone 20 Mg Tab) 40 mg PO DAILY [facility] Last Admin: 04/30/21 08:32 Dose: 40 mg Documented by: Sodium Chloride (Sodium Chloride 0.9% 10 Ml Syringe) 10 ml FLUSH ASDIRECTED PRN PRN Reason: Keep Vein Open Sodium Chloride (Sodium Chloride 0.9% 2.5 Ml Syringe) 2.5 ml FLUSH ASDIRECTED PRN PRN Reason: Keep Vein Open Sodium Chloride (Sodium Chloride 0.9% 20 Ml Sdv) 10 ml IV ASDIRECTED PRN PRN Reason: IV Use Sodium Chloride (Sodium Chloride 0.9% 10 Ml Syringe) 10 ml FLUSH ASDIRECTED PRN PRN Reason: Keep Vein Open Sodium Chloride (Sodium Chloride 0.9% 2.5 Ml Syringe) 2.5 ml FLUSH ASDIRECTED PRN PRN Reason: Keep Vein Open Sodium Chloride (Sodium Chloride 0.9% 20 Ml Sdv) 10 ml IV ASDIRECTED PRN PRN Reason: IV Use Sterile Water (Water For Irrigation,Sterile 1,000 Ml Container) 1,000 ml IRR ASDIRECTED PRN PRN Reason: delivery Discontinued Medications Citric Acid/Sodium Citrate (Citric Acid/Sodium Citrate Solution 30 Ml Cup) 30 ml PO ONETIME ONE Stop: 04/28/21 09:21 Last Admin: 04/28/21 11:13 Dose: 30 ml Documented by: Dexamethasone (Dexamethasone 10 Mg/Ml Sdv) 8 mg IVPUSH ONETIME ONE Stop: 04/28/21 18:01 Last Admin: 04/28/21 18:06 Dose: 8 mg Documented by: Epinephrine HCl (Epinephrine 1 Mg/1 Ml Amp) 0.3 mg SUBCUT ONETIME ONE Stop: 04/28/21 20:35 Last Admin: 04/28/21 21:50 Dose: 0.3 mg Documented by: Epinephrine HCl (Epinephrine 1 Mg/Ml Sdv) Confirm Administered Dose 1 mg .ROUTE .STK-MED ONE Stop: 04/28/21 21:25 Last Admin: 04/28/21 21:50 Dose: Not Given Documented by: Famotidine (Famotidine 20 Mg/2 Ml Sdv) 20 mg IVPUSH ONETIME ONE Stop: 04/28/21 11:01 Last Admin: 04/28/21 11:40 Dose: 20 mg Documented by: Fentanyl (Fentanyl 100 Mcg/2 Ml Sdv) Confirm Administered Dose 100 mcg .ROUTE .STK-MED ONE Stop: 04/28/21 11:46 Furosemide (Furosemide 20 Mg/2 Ml Vial) 20 mg IVPUSH ONETIME ONE Stop: 04/28/21 17:16 Last Admin: 04/28/21 17:10 Dose: 20 mg Documented by: Furosemide (Furosemide 20 Mg/2 Ml Vial) 20 mg IVPUSH NOW ONE Stop: 04/29/21 11:31 Last Admin: 04/29/21 11:37 Dose: 20 mg Documented by: Hydralazine HCl (Hydralazine 20 Mg/Ml Sdv) 10 mg IVPUSH ONETIME PRN PRN Reason: Hypertension Last Admin: 04/28/21 15:06 Dose: 10 mg Documented by: Hydralazine HCl (Hydralazine 20 Mg/Ml Sdv) Confirm Administered Dose 20 mg .ROUTE .STK-MED ONE Stop: 04/28/21 20:28 Last Admin: 04/28/21 20:38 Dose: Not Given Documented by: Cefazolin Sodium/Dextrose 2 gm / Cefazolin Sodium/Dextrose 1 gm/ Premix 100 mls @ 200 mls/hr IV ONETIME ONE Stop: 04/28/21 09:54 Last Admin: 04/28/21 12:01 Dose: 200 mls/hr Documented by: Ibuprofen (Ibuprofen 800 Mg Tab) 800 mg PO Q8H PRN PRN Reason: Cramping Ketorolac Tromethamine (Ketorolac 30 Mg/Ml Sdv) 30 mg IVPUSH Q6H DUC Stop: 04/29/21 13:31 Last Admin: 04/28/21 17:11 Dose: 30 mg Documented by: Labetalol HCl (Labetalol 100 Mg Tab) 200 mg PO ONETIME ONE Stop: 04/27/21 21:00 Last Admin: 04/27/21 21:14 Dose: 200 mg Documented by: Labetalol HCl (Labetalol 100 Mg/20 Ml Mdv) 20 mg IVPUSH ONETIME ONE; Protocol Stop: 04/27/21 21:01 Last Admin: 04/27/21 21:17 Dose: 20 mg Documented by: Labetalol HCl (Labetalol 100 Mg/20 Ml Mdv) 40 mg IVPUSH ONETIME ONE; Protocol Stop: 04/27/21 21:31 Last Admin: 04/27/21 21:33 Dose: 40 mg Documented by: Labetalol HCl (Labetalol 100 Mg/20 Ml Mdv) 80 mg IVPUSH ONETIME ONE; Protocol Stop: 04/27/21 21:55 Last Admin: 04/27/21 23:18 Dose: 80 mg Documented by: Labetalol HCl (Labetalol 100 Mg/20 Ml Mdv) 20 mg IVPUSH ONETIME ONE; Protocol Stop: 04/27/21 22:36 Last Admin: 04/27/21 22:37 Dose: 20 mg Documented by: Labetalol HCl (Labetalol 100 Mg Tab) 300 mg PO BID [facility] Last Admin: 04/29/21 08:23 Dose: 300 mg Documented by: Labetalol HCl (Labetalol 100 Mg/20 Ml Mdv) Confirm Administered Dose 100 mg .ROU TE .STK-MED ONE Stop: 04/29/21 22:06 Last Admin: 04/29/21 22:11 Dose: Not Given Documented by: Nifedipine (Nifedipine 30 Mg Tab.Er) 30 mg PO DAILY DUC Last Admin: 04/29/21 08:22 Dose: 30 mg Documented by: Nifedipine (Nifedipine 30 Mg Tab.Er) 30 mg PO ONETIME ONE Stop: 04/29/21 15:01 Last Admin: 04/29/21 14:01 Dose: 30 mg Documented by: Ondansetron HCl (Ondansetron 4 Mg/2 Ml Sdv) 4 mg IVPUSH Q4H PRN PRN Reason: Nausea/Vomiting Oxytocin (Oxytocin 10 Units/1 Ml Sdv) Confirm Administered Dose 50 unit .ROUTE .STK-MED ONE Stop: 04/28/21 13:51 Phenylephrine HCl (Phenylephrine 1% 10 Mg/Ml Sdv) Confirm Administered Dose 10 mg .ROUTE .STK-MED ONE Stop: 04/28/21 13:50 - Interaction Disposition, : in Room with Family Interaction: Holding Infant Feeding: Attempted ; Nursed Fair/Poor Support Person: - Recovery Exam Fundal Tone: Firm Fundal Level: 1 Fingerbreadths Above Umbilicus Fundal Placement: Midline Lochia Amount: Scant Lochia Color: Rubra/Red Perineum Description: Intact, Minimal Bruising/Swelling Episiotomy/Laceration: None Bladder Status: Indwelling Catheter in Place Urinary Elimination: Indwelling Catheter - Exam General: Alert, Oriented HEENT: Pupils Equal Neck: Supple Lungs: Clear to Auscultation, Normal Respiratory Effort Cardiovascular: Regular Rate, Regular Rhythm GI/Abdominal Exam: Normal Bowel Sounds, Soft, Non-Tender, No Organomegaly, No Distention, No Abnormal Bruit, No Mass, Pelvis Stable Extremities: Normal Inspection, Normal Range of Motion, Non-Tender, No Pedal Edema, Normal Capillary Refill Skin: Warm, Dry, Intact Wound/Incisions: Healing Well Neurological: No New Focal Deficit Psy/Mental Status: Alert, Normal Affect, Normal Mood - Problem List Review Problem List Initiated/Reviewed/Updated: Yes - My Orders Last 24 Hours: My Active Orders 04/29/21 10:06 Transfer Patient (Change bed) [ADT] Routine - Assessment Assessment:: Chest is clear. O2 saturation is 100%. will transfer back Juan&d. I am giving her 20 mg of Lasix iv. 04/30/21 doing well will send home tomorrow - Plan Plan:: For 31 years old patient multipurpose have multiple section before the patient have chronic hypertension prior to getting and she was on medication we continued her medication she was followed according to the high- risk protocol. She is 37+3 weeks she saw the long goods drier in consultation yesterday blood pressure is extremely elevated she was admitted she was putting on IV medication to lower her blood pressure and in consultation and based on the recommendation of the long goods drier we elected to do her section today instead of next week I explained this finding and the rationale to the patient and her .
[2021-04-30] MEDS: Acetaminophen/oxyCODONE 325-5 MG Tab PO PRN (19:41)
[2021-04-30] MEDS ORDERED: Labetalol 100 MG/20 ML MDV ONE (22:37)
[2021-05-01] MEDS: Acetaminophen/oxyCODONE 325-5 MG Tab PO PRN ×2 (02:21→11:46)
[2021-05-01] MEDS: hydrALAZINE 25 MG Tab PO SCH (06:00)
--- NOTE | 2021-05-01 08:52 | PCM.DCSUM1 ---
Discharge Summary - Hospital Course Diagnosis: Stroke: No - Discharge Data Discharge Date: 05/01/21 Discharge Disposition: Home, Self-Care 01 Condition: Good - Referral to Home Health Primary Care Physician: PCP None - Patient Summary/Data Consults: Consultations 04/28/21 19:00 Consult to Physician [CONS] Routine - Patient Instructions Diet: Usual Diet as Tolerated, Full Liquid Diet Activity: As Tolerated Driving: Do Not Drive Showering/Bathing: May Shower Wound/Incision Care: Keep Operative Site/Wound Site Clean and Dry Notify Provider of: Fever, Increased Pain - Discharge Plan Home Medications: Home Meds amLODIPine [Norvasc] 10 mg PO QAM 07/04/20 [History] hydroCHLOROthiazide [Hydrochlorothiazide] 12.5 mg PO QAM 07/04/20 [History] metFORMIN [Glucophage XR] 500 mg PO BID 07/04/20 [History] Referrals: Edison Franklin,[place] [Ordering Only Provider] - 06/09/21 9:30 am (Six week post check up with Dr. Trevino. Bring insurance and ID cards with you. Masks are required.) Rosalio Trevino MD [Physician] - 05/08/21 9:30 am (One week post-op appointment. You may bring your with to your appointment. Bring insurance and ID cards with you. Masks are required.) - Discharge Summary/Plan Comment DC Time >30 min.: Yes Total # of Minutes for Discharge Time: 30. And blood pressure is under control and she was instructed to take her medication at home for her high blood pressure and she also given an appointment to come to the office for follow-up in one week - General Info Date of Service: 05/01/21 Functional Status: Reports: Pain Controlled - Review of Systems General: Reports: No Symptoms HEENT: Reports: No Symptoms Pulmonary: Reports: No Symptoms Cardiovascular: Reports: No Symptoms Gastrointestinal: Reports: No Symptoms Genitourinary: Reports: No Symptoms Musculoskeletal: Reports: No Symptoms Skin: Reports: No Symptoms Neurological: Reports: No Symptoms Psychiatric: Reports: No Symptoms - Patient Data Vitals - Most Recent: Last Vital Signs Temp 36.0 C L 05/01/21 08:00 Pulse 86 05/01/21 08:00 Resp 18 05/01/21 08:00 BP 148/88 H 05/01/21 08:00 Pulse Ox 99 05/01/21 08:00 Weight - Most Recent: 124.4 kg Lab Results - Last 24 hrs: Laboratory Results - last 24 hr 04/27/21 Range/Units 20:15 Crossmatch See Detail Med Orders - Current: Current Medications Bisacodyl (Bisacodyl 10 Mg Supp) 10 mg RECTAL ONETIME PRN PRN Reason: Constipation Butorphanol Tartrate (Butorphanol 1 Mg/Ml Sdv) 1 mg IVPUSH Q1H PRN PRN Reason: Pain (severe 7-10) Carboprost Tromethamine (Carboprost Tromethamine 250 Mcg/1 Ml Amp) 250 mcg IM ASDIRECTED PRN PRN Reason: Post Hemorrhage Dextrose/Water (50% Dextrose In Water 50 Ml Syringe) 50 ml IVPUSH ASDIRECTED PRN PRN Reason: Hypoglycemia Diphenhydramine HCl (Diphenhydramine 50 Mg/Ml Sdv) 25 mg IVPUSH Q6H PRN PRN Reason: Itching or Nausea Last Admin: 04/28/21 17:53 Dose: 25 mg Documented by: Docusate Sodium (Docusate Sodium 100 Mg Cap) 100 mg PO BID [facility] Last Admin: 04/30/21 21:17 Dose: 100 mg Documented by: Emollient Ointment (Lanolin 100% Cream 7 Gm Tube) 0 gm TOP ASDIRECTED PRN PRN Reason: Sore Nipples Famotidine (Famotidine 20 Mg Tab) 20 mg PO BID [facility] Last Admin: 04/30/21 21:17 Dose: 20 mg Documented by: Glucagon (Glucagon,Human Recombinant 1 Mg Vial) 1 mg IM ASDIRECTED PRN PRN Reason: Hypoglycemia Hydralazine HCl (Hydralazine 20 Mg/Ml Sdv) 5 mg IVPUSH ONETIME PRN; Protocol PRN Reason: Hypertension Last Admin: 04/28/21 20:38 Dose: 5 mg Documented by: Hydralazine HCl (Hydralazine 25 Mg Tab) 25 mg PO Q8H [facility] Last Admin: 05/01/21 06:00 Dose: 25 mg Documented by: Oxytocin/Sodium Chloride (Oxytocin 30 Unit In Ns 0.9% 500 Ml Premix) 30 unit in 500 mls @ 999 mls/hr IV TITRATE [facility] Tranexamic Acid 1,000 mg/ (Sodium Chloride) 110 mls @ 660 mls/hr IV ONETIME PRN PRN Reason: Bleeding Lactated Ringer's (Ringers, Lactated) 1,000 mls @ 150 mls/hr IV ASDIRECTED [facility] Last Admin: 04/28/21 07:41 Dose: 150 mls/hr Documented by: Lactated Ringer's (Ringers, Lactated) 1,000 mls @ 500 mls/hr IV BOLUS [facility] Last Admin: 04/28/21 11:39 Dose: 500 mls/hr Documented by: Oxytocin/Sodium Chloride (Oxytocin 30 Unit In Ns 0.9% 500 Ml Premix) 30 unit in 500 mls @ 250 mls/hr IV TITRATE [facility] Lactated Ringer's (Ringers, Lactated) 1,000 mls @ 125 mls/hr IV ASDIRECTED [facility] Tranexamic Acid 1,000 mg/ (Sodium Chloride) 110 mls @ 660 mls/hr IV ONETIME PRN PRN Reason: Bleeding Insulin Aspart (Insulin Aspart 100 Units/Ml 3 Ml Pen) 0 unit SUBCUT TIDAC [facility]; Protocol Last Admin: 04/30/21 19:03 Dose: Not Given Documented by: Labetalol HCl (Labetalol 100 Mg/20 Ml Mdv) 40 mg IVPUSH ONETIME PRN; Protocol PRN Reason: Hypertension Last Admin: 04/30/21 22:43 Dose: 40 mg Documented by: Labetalol HCl (Labetalol 100 Mg/20 Ml Mdv) 20 mg IVPUSH ONETIME PRN; Protocol PRN Reason: Hypertension Last Admin: 04/30/21 21:38 Dose: 20 mg Documented by: Labetalol HCl (Labetalol 100 Mg Tab) 400 mg PO BID [facility] Last Admin: 04/30/21 21:16 Dose: 400 mg Documented by: Lidocaine HCl (Lidocaine 1% 50 Ml Mdv) 50 ml INJECT ONETIME PRN PRN Reason: Laceration repair Methylergonovine Maleate (Methylergonovine 0.2 Mg/1 Ml Amp) 0.2 mg IM ASDIRECTED PRN PRN Reason: Post Hemorrhage Methylergonovine Maleate (Methylergonovine 0.2 Mg/1 Ml Amp) 0.2 mg IM ONETIME PRN PRN Reason: Excessive Vaginal Bleeding Misoprostol (Misoprostol 200 Mcg Tab) 200 mcg PO ONETIME PRN PRN Reason: Post Hemorrhage Misoprostol (Misoprostol 200 Mcg Tab) 1,000 mcg RECTAL ONETIME PRN PRN Reason: excessive bleeding Nalbuphine HCl (Nalbuphine 10 Mg/1 Ml Vial) 10 mg IVPUSH Q1H PRN PRN Reason: Pain (severe 7-10) Nifedipine (Nifedipine 30 Mg Tab.Er) 60 mg PO DAILY [facility] Last Admin: 04/30/21 09:04 Dose: 60 mg Documented by: Ondansetron HCl (Ondansetron 4 Mg/2 Ml Sdv) 4 mg IVPUSH Q4H PRN PRN Reason: Nausea/Vomiting Oxycodone/Acetaminophen (Acetaminophen/Oxycodone 325-5 Mg Tab) 1 tab PO Q4H PRN PRN Reason: Pain (severe 7-10) Last Admin: 05/01/21 02:21 Dose: 1 tab Documented by: Oxycodone/Acetaminophen (Acetaminophen/Oxycodone 325-5 Mg Tab) 2 tab PO Q4H PRN PRN Reason: Pain (severe 7-10) Last Admin: 04/29/21 22:34 Dose: 2 tab Documented by: Oxytocin (Oxytocin 10 Units/1 Ml Sdv) 10 unit IM ASDIRECTED PRN PRN Reason: Excessive Vaginal Bleeding Prednisone (Prednisone 20 Mg Tab) 40 mg PO DAILY [facility] Last Admin: 04/30/21 08:32 Dose: 40 mg Documented by: Sodium Chloride (Sodium Chloride 0.9% 10 Ml Syringe) 10 ml FLUSH ASDIRECTED PRN PRN Reason: Keep Vein Open Sodium Chloride (Sodium Chloride 0.9% 2.5 Ml Syringe) 2.5 ml FLUSH ASDIRECTED PRN PRN Reason: Keep Vein Open Sodium Chloride (Sodium Chloride 0.9% 20 Ml Sdv) 10 ml IV ASDIRECTED PRN PRN Reason: IV Use Sodium Chloride (Sodium Chloride 0.9% 10 Ml Syringe) 10 ml FLUSH ASDIRECTED PRN PRN Reason: Keep Vein Open Sodium Chloride (Sodium Chloride 0.9% 2.5 Ml Syringe) 2.5 ml FLUSH ASDIRECTED PRN PRN Reason: Keep Vein Open Sodium Chloride (Sodium Chloride 0.9% 20 Ml Sdv) 10 ml IV ASDIRECTED PRN PRN Reason: IV Use Sterile Water (Water For Irrigation,Sterile 1,000 Ml Container) 1,000 ml IRR ASDIRECTED PRN PRN Reason: delivery Discontinued Medications Citric Acid/Sodium Citrate (Citric Acid/Sodium Citrate Solution 30 Ml Cup) 30 ml PO ONETIME ONE Stop: 04/28/21 09:21 Last Admin: 04/28/21 11:13 Dose: 30 ml Documented by: Dexamethasone (Dexamethasone 10 Mg/Ml Sdv) 8 mg IVPUSH ONETIME ONE Stop: 04/28/21 18:01 Last Admin: 04/28/21 18:06 Dose: 8 mg Documented by: Epinephrine HCl (Epinephrine 1 Mg/1 Ml Amp) 0.3 mg SUBCUT ONETIME ONE Stop: 04/28/21 20:35 Last Admin: 04/28/21 21:50 Dose: 0.3 mg Documented by: Epinephrine HCl (Epinephrine 1 Mg/Ml Sdv) Confirm Administered Dose 1 mg .ROUTE .STK-MED ONE Stop: 04/28/21 21:25 Last Admin: 04/28/21 21:50 Dose: Not Given Documented by: Famotidine (Famotidine 20 Mg/2 Ml Sdv) 20 mg IVPUSH ONETIME ONE Stop: 04/28/21 11:01 Last Admin: 04/28/21 11:40 Dose: 20 mg Documented by: Fentanyl (Fentanyl 100 Mcg/2 Ml Sdv) Confirm Administered Dose 100 mcg .ROUTE .STK-MED ONE Stop: 04/28/21 11:46 Furosemide (Furosemide 20 Mg/2 Ml Vial) 20 mg IVPUSH ONETIME ONE Stop: 04/28/21 17:16 Last Admin: 04/28/21 17:10 Dose: 20 mg Documented by: Furosemide (Furosemide 20 Mg/2 Ml Vial) 20 mg IVPUSH NOW ONE Stop: 04/29/21 11:31 Last Admin: 04/29/21 11:37 Dose: 20 mg Documented by: Hydralazine HCl (Hydralazine 20 Mg/Ml Sdv) 10 mg IVPUSH ONETIME PRN PRN Reason: Hypertension Last Admin: 04/28/21 15:06 Dose: 10 mg Documented by: Hydralazine HCl (Hydralazine 20 Mg/Ml Sdv) Confirm Administered Dose 20 mg .ROUTE .STK-MED ONE Stop: 04/28/21 20:28 Last Admin: 04/28/21 20:38 Dose: Not Given Documented by: Cefazolin Sodium/Dextrose 2 gm / Cefazolin Sodium/Dextrose 1 gm/ Premix 100 mls @ 200 mls/hr IV ONETIME ONE Stop: 04/28/21 09:54 Last Admin: 04/28/21 12:01 Dose: 200 mls/hr Documented by: Ibuprofen (Ibuprofen 800 Mg Tab) 800 mg PO Q8H PRN PRN Reason: Cramping Ketorolac Tromethamine (Ketorolac 30 Mg/Ml Sdv) 30 mg IVPUSH Q6H [facility] Stop: 04/29/21 13:31 Last Admin: 04/28/21 17:11 Dose: 30 mg Documented by: Labetalol HCl (Labetalol 100 Mg Tab) 200 mg PO ONETIME ONE Stop: 04/27/21 21:00 Last Admin: 04/27/21 21:14 Dose: 200 mg Documented by: Labetalol HCl (Labetalol 100 Mg/20 Ml Mdv) 20 mg IVPUSH ONETIME ONE; Protocol Stop: 04/27/21 21:01 Last Admin: 04/27/21 21:17 Dose: 20 mg Documented by: Labetalol HCl (Labetalol 100 Mg/20 Ml Mdv) 40 mg IVPUSH ONETIME ONE; Protocol Stop: 04/27/21 21:31 Last Admin: 04/27/21 21:33 Dose: 40 mg Documented by: Labetalol HCl (Labetalol 100 Mg/20 Ml Mdv) 80 mg IVPUSH ONETIME ONE; Protocol Stop: 04/27/21 21:55 Last Admin: 04/27/21 23:18 Dose: 80 mg Documented by: Labetalol HCl (Labetalol 100 Mg/20 Ml Mdv) 20 mg IVPUSH ONETIME ONE; Protocol Stop: 04/27/21 22:36 Last Admin: 04/27/21 22:37 Dose: 20 mg Documented by: Labetalol HCl (Labetalol 100 Mg Tab) 300 mg PO BID [facility] Last Admin: 04/29/21 08:23 Dose: 300 mg Documented by: Labetalol HCl (Labetalol 100 Mg/20 Ml Mdv) Confirm Administered Dose 100 mg .ROUTE .STK-MED ONE Stop: 04/29/21 22:06 Last Admin: 04/29/21 22:11 Dose: Not Given Documented by: Labetalol HCl (Labetalol 100 Mg/20 Ml Mdv) Confirm Administered Dose 100 mg .ROUTE .STK-MED ONE Stop: 04/30/21 22:38 Last Admin: 04/30/21 22:43 Dose: Not Given Documented by: Nifedipine (Nifedipine 30 Mg Tab.Er) 30 mg PO DAILY DUC Last Admin: 04/29/21 08:22 Dose: 30 mg Documented by: Nifedipine (Nifedipine 30 Mg Tab.Er) 30 mg PO ONETIME ONE Stop: 04/29/21 15:01 Last Admin: 04/29/21 14:01 Dose: 30 mg Documented by: Ondansetron HCl (Ondansetron 4 Mg/2 Ml Sdv) 4 mg IVPUSH Q4H PRN PRN Reason: Nausea/Vomiting Oxytocin (Oxytocin 10 Units/1 Ml Sdv) Confirm Administered Dose 50 unit .ROUTE .STK-MED ONE Stop: 04/28/21 13:51 Phenylephrine HCl (Phenylephrine 1% 10 Mg/Ml Sdv) Confirm Administered Dose 10 mg .ROUTE .STK-MED ONE Stop: 04/28/21 13:50 - Exam General: Reports: Alert, Oriented HEENT: Reports: Pupils Equal, Pupils Reactive, EOMI, Mucous Membr. Moist/[place] Neck: Reports: Supple Lungs: Reports: Clear to Auscultation, Normal Respiratory Effort Cardiovascular: Reports: Regular Rate, Regular Rhythm GI/Abdominal Exam: Normal Bowel Sounds, Soft, Non-Tender, No Organomegaly, No Distention, No Abnormal Bruit, No Mass, Pelvis Stable (Female) Exam: Normal External Exam, Normal Speculum Exam, Normal Bimanual Exam Rectal (Female) Exam: Normal Exam, Normal Rectal Tone Back Exam: Reports: Normal Inspection, Full Range of Motion Extremities: Normal Inspection, Normal Range of Motion, Non-Tender, No Pedal Edema, Normal Capillary Refill Skin: Reports: Warm, Dry, Intact Wound/Incisions: Reports: Healing Well Neurological: Reports: No New Focal Deficit Psy/Mental Status: Reports: Alert, Normal Affect, Normal Mood
[2021-05-01] MEDS: Insulin Aspart 100 Units/ML 3 ML Pen SUBCUT SCH ×2 (08:59→11:45)
[2021-05-01] MEDS: Labetalol 100 MG Tab PO SCH (09:00)
[2021-05-01] MEDS: Famotidine 20 MG Tab PO SCH (09:01)
[2021-05-01] MEDS: Docusate Sodium 100 MG Cap PO SCH (09:01)
[2021-05-01] MEDS: NIFEdipine 30 MG Tab.ER PO SCH (09:02)
[2021-05-01] MEDS: predniSONE 20 MG Tab PO SCH (09:32)
== END 2021-05-01 13:45 | disposition home or self-care (01) | DRG 788 ==
LOC: MW.OB 19:52 → MW.OBCHECK 19:52 → MW.OB 20:21 → OBSVTOIN 04-28 09:20 → MW.ICU 04-28 23:50 → MW.OB 04-29 11:30
PROVIDERS: ADMIT Obstetrics & Gynecology; ATTEND Obstetrics & Gynecology
PROC: 10D00Z1 Extraction of Products of Conception, Low, Open Approach (ICD-10-PCS; principal; 2021-04-28)
DX: O10.92 Unspecified pre-existing hypertension complicating childbirth (principal); O34.211 Maternal care for low transverse scar from previous cesarean delivery; Z3A.37 37 weeks gestation of pregnancy; Z37.0 Single live birth; O77.0 Labor and delivery complicated by meconium in amniotic fluid; Z91.19 Patient's noncompliance with other medical treatment and regimen; O99.214 Obesity complicating childbirth; Z20.822 Contact with and (suspected) exposure to COVID-19
CPT/HCPCS: 01961; 36415; 59025; 71045; 71045-26; 80048; 80053; 81003; 82565; 82570; 82947; 83615; 84156; 84450; 84460; 84520; 84550; 85025; 85027; 85384; 85610; 86592; 86850; 86870; 86900; 86901; 86920; 86921; 86922; 93005; A9270-GY; J0171; J0360; J0690; J1100; J1200; J1885; J1940; J2370; J2590; J3010; J3490; J7120; U0002

== ENCOUNTER 2022-07-06 19:37 | Emergency (ER) | payer BC, OTHER ==
[2022-07-06] MEDS ORDERED: Sodium Chloride 0.9% 1,000 ML IV STA (20:31)
[2022-07-06 21:13] LABS: BLOOD UREA NITROGEN,BUN 18 mg/dL (7.0-18.0); CARBON DIOXIDE,CO2 27.9 mmol/L (21.0-32.0); CHLORIDE,CL 101 mmol/L (98-107); GLUCOSE RANDOM 183 mg/dL (74-106); POTASSIUM,K 3.5 mmol/L (3.5-5.1); SODIUM,NA 135 mmol/L (136-145)
[2022-07-06 21:14] LABS: ESTIMATED GFR 116 mL/min (>60)
[2022-07-06 21:21] LABS: CORONAVIRUS COVID-19 NAA NEGATIVE (NEGATIVE); INFLUENZA A NAA NEGATIVE (NEGATIVE); INFLUENZA B NAA NEGATIVE (NEGATIVE)
[2022-07-06 22:11] LABS: C. TRACHOMATIS BY PCR NOT DETECTED; N. GONORRHOEAE BY PCR NOT DETECTED
[2022-07-06] MEDS ORDERED: metroNIDAZOLE 250 MG Tab PO STA (22:17)
== END 2022-07-07 00:41 | disposition home or self-care (01) ==
LOC: MW.ED 19:37
DX: O20.9 Hemorrhage in early pregnancy, unspecified (principal); O23.591 Infection of other part of genital tract in pregnancy, first trimester; B96.89 Other specified bacterial agents as the cause of diseases classified elsewhere; O99.011 Anemia complicating pregnancy, first trimester; Z3A.08 8 weeks gestation of pregnancy; Z28.310 Unvaccinated for COVID-19; Z88.8 Allergy status to other drugs, medicaments and biological substances; Z20.822 Contact with and (suspected) exposure to COVID-19
CPT/HCPCS: 0240U; 36415; 76817; 80053; 81001; 83735; 83880; 84443; 84702; 85025; 86850; 86900; 86901; 87086; 87088; 87186; 87480; 87491; 87510; 87591; 87660; 90384; 99284; A9270; J7030; 36430; J2790

== ENCOUNTER 2022-07-15 16:19 | Emergency (ER) | payer BC ==
[2022-07-15 18:12] LABS: POTASSIUM,K 3.1 mmol/L (3.5-5.1)
[2022-07-15] MEDS ORDERED: Acetaminophen/HYDROcodone 325-5 MG Tab PO ONE (19:25)
== END 2022-07-15 19:29 | disposition home or self-care (01) ==
LOC: MW.ED 16:19
DX: O20.0 Threatened abortion (principal); O10.911 Unspecified pre-existing hypertension complicating pregnancy, first trimester; O24.111 Pre-existing type 2 diabetes mellitus, in pregnancy, first trimester; O99.211 Obesity complicating pregnancy, first trimester; E66.9 Obesity, unspecified; Z88.5 Allergy status to narcotic agent; Z3A.01 Less than 8 weeks gestation of pregnancy
CPT/HCPCS: 36415; 76817; 80053; 81001; 84702; 85025; 86900; 86901; 87086; 99284; A9270

== ENCOUNTER 2022-08-13 10:37 | Emergency (ER) | payer BC ==
[2022-08-13] MEDS ORDERED: Sodium Chloride 0.9% 2.5 ML Syringe FLUSH PRN (11:23)
[2022-08-13] MEDS ORDERED: Sodium Chloride 0.9% 10 ML Syringe FLUSH PRN (11:23)
[2022-08-13 13:02] LABS: CARBON DIOXIDE,CO2 29.8 mmol/L (21.0-32.0); POTASSIUM,K 3.4 mmol/L (3.5-5.1)
== END 2022-08-13 14:35 | disposition home or self-care (01) ==
LOC: MW.ED 10:37
DX: N93.9 Abnormal uterine and vaginal bleeding, unspecified (principal); I10 Essential (primary) hypertension; E11.9 Type 2 diabetes mellitus without complications; E66.9 Obesity, unspecified; Z68.41 Body mass index [BMI] 40.0-44.9, adult; Z88.5 Allergy status to narcotic agent
CPT/HCPCS: 36415; 76817; 80053; 84702; 85025; 99284; J3490; 99283

== ENCOUNTER 2022-10-22 11:03 | Emergency (ER) | payer BC ==
[2022-10-22] MEDS ORDERED: Sodium Chloride 0.9% 2.5 ML Syringe FLUSH PRN (11:37)
[2022-10-22] MEDS ORDERED: Sodium Chloride 0.9% 10 ML Syringe FLUSH PRN (11:37)
[2022-10-22 11:56] LABS: BASOPHILS PERCENT AUTO 0.1 % (0.0-1.5); EOSINOPHILS ABSOLUTE AUTO 0.2 K/uL (0.0-0.7); EOSINOPHILS PERCENT AUTO 2.5 % (0.0-7.0); HEMATOCRIT 32.6 % (36.0-46.0); HEMOGLOBIN 9.7 g/dL (12.0-16.0); LYMPHOCYTES ABSOLUTE AUTO 1.9 K/uL (0.6-2.4); LYMPHOCYTES PERCENT AUTO 26.5 % (16.0-40.0); MEAN CORPUSCULAR HEMOGLOBIN 23.3 pg (27.0-32.0); MEAN CORPUSCULAR HGB CONC 29.8 g/dL (31.0-37.0); MEAN CORPUSCULAR VOLUME 78.2 fL (80.0-98.0); MONOCYTES ABSOLUTE AUTO 0.8 K/uL (0.0-0.8); MONOCYTES PERCENT AUTO 10.4 % (0.0-15.0); NEUTROPHILS ABSOLUTE AUTO 4.4 K/uL (1.4-5.7); NEUTROPHILS PERCENT AUTO 60.5 % (48.0-80.0); PLATELET COUNT,PLT 226 K/uL (150-400); RED BLOOD CELL COUNT 4.17 M/uL (4.30-5.90); WHITE BLOOD CELL COUNT,WBC 7.33 K/uL (4.0-11.0)
[2022-10-22 12:08] LABS: INR 1.14 (0.86-1.11)
[2022-10-22 12:25] LABS: A/G RATIO 0.6 (0.9-1.6); ALBUMIN 3.1 g/dL (3.4-5.0); BILIRUBIN TOTAL 0.2 mg/dL (0.2-1.0); CALCIUM 8.2 mg/dL (8.5-10.1); CARBON DIOXIDE,CO2 30.5 mmol/L (21.0-32.0); CREATININE 0.9 mg/dL (0.6-1.0); EST CRCL DRUG DOSING (CG) 82.45 mL/min; PROTEIN TOTAL,TP 8.3 g/dL (6.4-8.2)
== END 2022-10-22 14:48 | disposition home or self-care (01) ==
LOC: MW.ED 11:03
DX: N83.201 Unspecified ovarian cyst, right side (principal); N93.9 Abnormal uterine and vaginal bleeding, unspecified; I10 Essential (primary) hypertension; E11.9 Type 2 diabetes mellitus without complications; E66.9 Obesity, unspecified; Z68.34 Body mass index [BMI] 34.0-34.9, adult; Z88.5 Allergy status to narcotic agent
CPT/HCPCS: 36415; 76830; 80053; 84702; 85025; 85610; 86900; 86901; 99284; J3490; 99283